=== PATIENT | male | born 1945 | race Caucasian/White ===

== ENCOUNTER → 2019-05-06 10:59 | Outpatient (BNVA) | payer MEDICARE, OTHER, SELFPAY | PROVIDERS: Family Provider Nurse Practitioner; PCP Nurse Practitioner; Visit Provider Nurse Practitioner | DX: J40 Bronchitis, not specified as acute or chronic (principal) | CPT/HCPCS: 36415; 85025 ==

== ENCOUNTER → 2019-05-08 11:10 | Outpatient (BNVA) | payer MEDICARE, OTHER, SELFPAY | PROVIDERS: Family Provider Nurse Practitioner; PCP Nurse Practitioner; Visit Provider Nurse Practitioner | DX: I51.7 Cardiomegaly (principal); R09.89 Other specified symptoms and signs involving the circulatory and respiratory systems | CPT/HCPCS: 71046 ==

== ENCOUNTER 2019-06-10 09:50 | Emergency (ER) | payer MEDICARE, OTHER, SELFPAY ==
[2019-06-10 09:59] VITALS: BP 104/80; PULSE 38; RESP 22; TEMP 36.8; O2SAT 94; BMI 42.5
--- NOTE | 2019-06-10 10:11 | ECG_ITS ---
Measurements Intervals [place] Rate: 68 P: 44 DC: 213 QRS: -52 QRSD: 164 T: 1 QT: 406 QTc: 434 SINUS RHYTHM WITH FIRST DEGREE AV BLOCK WITH FREQUENT VENTRICULAR PREMATURE COMPLEXES IN A BIGEMINAL PATTERN RIGHT BUNDLE BRANCH BLOCK [120+ ms QRS DURATION, UPRIGHT V1, 40+ ms S IN I/aVL/V4/V5/V6] LEFT ANTERIOR FASCICULAR BLOCK [QRS AXIS <= -45, QR IN I, RS IN II] Compared to ECG 08/31/2018 05:37:40 Ventricular premature complex(es) now present Right bundle-branch block now present Sinus bradycardia no longer present ST (T wave) deviation no longer present Electronically Signed On 06-10-2019 20:04:51 TIME STAMP ASSEMBLER by Brianne Toure M.D. [email or web address]
--- NOTE | 2019-06-10 10:11 | XR_ITS ---
WS: [id number] PORTABLE CHEST HISTORY: Chest pain. Edema. COMPARISON: 05/08/2019 Mild interstitial thickening throughout both lungs. Mild prominence of the pulmonary arterial system. No pneumonia. Pulmonary arteries are slightly enlarged with rapid tapering. No pleural effusion or p neumothorax. Cardiac size: Mildly enlarged cardiac silhouette. Mediastinum/Aorta: Mild atherosclerosis aorta. No osseous abnormality seen. XR/XR chest 1V portable [id number] IMPRESSION: 1. Mild cardiomegaly with mild pulmonary venous congestion. 2. No pneumonia. 3. Mild early pulmonary hypertension suspected.
--- NOTE | 2019-06-10 10:12 | ED_ITS ---
HPI - Extremity Problem General: Chief complaint: Extremity Problem,Nontraumatic Stated complaint: Leg pain Time Seen by Provider: 06/10/19 09:59 History of Present Illness: HPI Narrative: Patient complains of bilateral leg swelling. Has not been taking water pill. 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 Came in today because he cannot get hold electrical logging engineer office. Complaint: extremity pain Onset (ago): month(s) Pain Consistency: constant Location: left and right Associated symptoms: Deny chest pain, fever(s) or rash Review of Systems Narrative: Complains of bilateral lower extremity swelling that is just worsening. Patient states he does not take the water pill because he just pees all over himself and he cannot go out. Legs have been worsening over the last few weeks. Const: Denies: fever, chills or body aches Eyes: Denies: change in vision or blurry vision ENMT: Denies: throat pain or nasal congestion Card: Denies: chest pain or shortness of breath on exertion Resp: Denies: shortness of breath, productive cough or non-productive cough GI: Denies: abdominal pain, nausea or vomiting : Denies: difficulty urinating Musc: Denies: extremity pain Skin/Breast: Denies: rash Neuro: Denies: headache Psych: Denies: anxiety or depression Andi/Lymph: Denies: easy bruising PFSH ED PFSH: Statuses (acute, chronic, etc) shown below reflect problem list status as previously entered and may not be historically accurate Social History Smoking and tobacco status: never smoked Alcohol intake: current Alcohol intake frequency: holidays/special occasions only Desire information about alcohol rehabilitation?: No Counseling given: No Desire information about substance/drug rehabilitation?: No Counseling given: No Household members: spouse Housing: House Marital status: History of recent travel: No Physical Exam Const: COMMON NORMALS: no apparent distress, average body habitus and oriented x3 HENMT: COMMON NORMALS: normocephalic HEAD & SCALP: normal to inspection and normocephalic FACE & SINUS: normal facial exam Eye: COMMON NORMALS: conjunctivae normal GENERAL EYE: normal appearance of both eyes CONJUNCTIVA: Yes conjunctivae normal Neck/C-Spine: COMMON NORMALS: no JVD Chest: COMMONS NORMALS: inspection of chest normal Resp: COMMON NORMALS: normal respiratory effort and clear to auscultation bilaterally AUSCULTATION: clear to auscultation bilaterally Cardio: COMMON NORMALS: no JVD RATE: other RHYTHM: abnormal rhythm (Irregular) OTHER: 3+ pitting edema bilateral lower extremities GI: COMMON NORMALS: normal to inspection, nondistended, normoactive bowel sounds Extremity: COMMON NORMALS: normal to inspection and full ROM Neuro: COMMON NORMALS: oriented x3 Course Vital Signs: Vital signs: Vital Signs Temperature 98.3 F 06/10/19 09:59 Pulse Rate 38 L 06/10/19 09:59 Respiratory Rate 22 H 06/10/19 09:59 Blood Pressure 104/80 06/10/19 09:59 Pulse Oximetry 94 06/10/19 09:59 MDM - Extremity (Nontraumatic) EKG Data^: EKG 1: EKG interpretation date: 06/10/19 EKG interpretation time: 10:15 Interpretation: Right bundle branch block. Left anterior fascicular block. Sinus rhythm with first-degree AV block with PVCs. Ventricular rate 68 bpm. VT interval 213 ms and QRS durations 164 ms Discharge Plan Discharge Prescriptions: No Action lisinopril 20 mg tablet 20 mg PO BID RF: 0 cholecalciferol (vitamin D3) [Vitamin D3] 1,000 unit capsule 1,000 unit PO BID RF: 0 amlodipine 10 mg tablet 10 mg PO DAILY RF: 0 levothyroxine 175 mcg capsule 175 mcg PO DAILY RF: 0 atorvastatin 40 mg tablet 40 mg PO ONCE RF: 0 potassium chloride 20 mEq tablet extended release 20 meq PO ONCE RF: 0 metformin 500 mg tablet 500 mg PO BID RF: 0 (DME) blood-glucose meter [Precision Xtra Monitor] Kit See Rx Instructions .ROUTE .MEDSUPPLY Qty: 1 RF: 0 lancets miscellaneous DAILY RF: 0 doxazosin 1 mg tablet 1 mg PO BID RF: 0 cyanocobalamin (vitamin B-12) PO DAILY RF: 0 aspirin [Aspir-81] 81 mg tablet,delayed release (DR/EC) 81 mg PO ONCE RF: 0 clopidogrel 75 mg tablet 75 mg PO ONCE RF: 0 albuterol sulfate [ProAir HFA] 90 mcg/actuation HFA aerosol inhaler 2 puff INHALATION Q6H PRN (Reason: shortness of breath or wheezing) Qty: 18 RF: 0 doxycycline hyclate 100 mg tablet 100 mg PO BID Qty: 20 RF: 0 dexamethasone sodium phosphate 4 mg/mL solution 8 mg IM ONCE Qty: 2 RF: 0 clindamycin HCl 300 mg capsule 300 mg PO TID 10 Days Qty: 30 RF: 0 Adult Probiotic 3 billion cell capsule 3,000 mmu cells PO DAILY 30 Days Qty: 30 RF: 2 furosemide [Lasix] 20 mg tablet 20 mg PO QAM Qty: 4 RF: 0 metoprolol tartrate 25 mg tablet 25 mg PO BID Qty: 180 RF: 3 Coding Level of Care Code ED Emergency Service Worker for Chg Fwd Exam Problem Focused
[2019-06-10 10:23] LABS: Basophils % 0.4 %; Eosinophils # 0.2 10^3/uL (0.0-0.8); Eosinophils % 4.1 %; Hemoglobin 13.9 g/dL (11.7-16.6); Lymphocytes # 1.2 10^3/uL (0.8-4.8); Lymphocytes % 21.6 %; Mean Corpuscular HGB Conc 32.3 g/dL (30.0-36.0); Mean Corpuscular Hemoglobin 32.4 pg (28.0-34.0); Mean Corpuscular Volume 100.2 fL (80-94); Mean Platelet Volume 10.2 fL (7.4-10.4); Monocytes # 0.6 10^3/uL (0.2-0.9); Monocytes % 11.3 %; Neutrophils # 3.3 10^3/uL (1.8-7.7); Nucleated Red Blood Cells % 0 %; Platelet Count 165 10^3/cmm (130-400); Red Blood Count 4.29 10^6/uL (4.1-5.3); Red Cell Distribution Width 13.8 % (12.1-15.1); White Blood Count 5.3 10^3/uL (4.0-10.0)
[2019-06-10 10:52] LABS: Alanine Aminotransferase 18 U/L (0-41); Albumin Level 3.7 g/dL (3.5-5.2); Alkaline Phosphatase 93 IU/L (40-130); Aspartate Amino Transferase 18 U/L (0-40); Blood Urea Nitrogen 22 mg/dL (8-23); Calcium 9.2 mg/dL (8.5-10.5); Carbon Dioxide 27 mmol/L (22-29); Globulin 2.6 g/dL (1.3-4.6); Glucose 104 mg/dL (65-115); NT Pro B Type Natriuretic Pept 112 pg/mL (0-125); Total Bilirubin 0.8 mg/dL (0.15-1.2); Total Protein 6.3 g/dL (6.6-8.7)
[2019-06-10 11:12] LABS: Anion Gap 14.5 (5-19); Chloride 104 mmol/L (98-107); Potassium 4.5 mmol/L (3.5-5.1); Sodium 141 mmol/L (136-145)
[2019-06-10 11:23] VITALS: BP 156/58; PULSE 43; RESP 20; O2SAT 93
== END 2019-06-10 11:23 | disposition home or self-care (01) ==
PROVIDERS: Emergency Provider Nurse Practitioner Family; Family Provider Nurse Practitioner; PCP Nurse Practitioner
DX: M79.606 Pain in leg, unspecified (principal); M79.89 Other specified soft tissue disorders; Z79.84 Long term (current) use of oral hypoglycemic drugs; Z79.02 Long term (current) use of antithrombotics/antiplatelets; Z79.82 Long term (current) use of aspirin; I70.0 Atherosclerosis of aorta
CPT/HCPCS: 36415; 71045; 80053; 83880; 85025; 93005; 99281; 99283

== ENCOUNTER → 2019-06-26 11:50 | Outpatient (BNVA) | payer MEDICARE, OTHER, SELFPAY | PROVIDERS: Family Provider Nurse Practitioner; PCP Nurse Practitioner; Visit Provider Nurse Practitioner Family | DX: R05 Cough (principal); R06.02 Shortness of breath; I51.7 Cardiomegaly; R60.0 Localized edema; R07.9 Chest pain, unspecified; I50.9 Heart failure, unspecified; R71.8 Other abnormality of red blood cells | CPT/HCPCS: 80053; 82607; 82746; 83880; 85025 ==

== ENCOUNTER 2019-06-28 13:27 | Outpatient (CLI) | payer MEDICARE, OTHER, SELFPAY ==
--- NOTE | 2019-06-28 14:18 | XR_ITS ---
WS: [id number] Chest 2 views, 06/28/2019 Clinical Data: Cough Comparison: Portable chest, 06/10/2019. Findings: No nodules, masses or effusions are seen. The heart is minimally large. The pulmonary vascu larity is not increased. No pneumonia or pneumothorax is seen. The aortic arch and descending aorta s how tortuosity. XR/XR chest 2V* [id number] Impression: Atherosclerosis and mild cardiomegaly.
[2019-06-28 14:50] LABS: Troponin T (5th) Once 26 ng/mL (0-15)
--- NOTE | 2019-06-28 15:00 | USCV_ITS ---
Alexei Hoffmann Age: 73 Gender: M : 1945 Exam Date: 06/28/2019 13:53 Ordering Phys: Daphnie Moralez Technologist: Nahed Luna [place]am Location: [facility] [place] [facility] [place] Indication: SOB, CARDIOMEGALY BP: 150 / 52 HR: 59 Rhythm: Sinus Technical Quality: Technically difficult study MEASUREMENTS (Male / Female) Normal Values 2D ECHO LV Diastolic Diameter PLAX 6.7 cm 4.2 - 5.9 / 3.9 - 5.3 cm LV Systolic Diameter PLAX 4.4 cm IVS Diastolic Thickness 1.2 cm 0.6 - 1.0 / 0.6 - 0.9 cm IVS Systolic Thickness 1.9 cm LVPW Diastolic Thickness 1.3 cm 0.6 - 1.0 / 0.6 - 0.9 cm LVPW Systolic Thickness 1.8 cm LVOT Diameter 2.0 cm LV Ejection Fraction 2D Teich 62.3 % LA Diameter 4.2 cm Aorta at Sinotubular Diameter 3.6 cm M-MODE Aortic Annulus Diameter 2.6 cm LA Ao Ratio MM 1.6 MV E Point Septal Separation 1.9 cm DOPPLER AV Peak Velocity 231.0 cm/s LVOT Peak Velocity 97.0 cm/s AV Area Cont Eq vti 1.3 cm squared AV Area Cont Eq pk 1.3 cm squared MV Area PHT 4.6 cm squared MV E' Velocity 68.0 cm/s TR Peak Velocity 288.5 cm/s TR Peak Gradient 33.3 mmHg TR Mean Velocity 208.4 cm/s TR Mean Gradient 18.7 mmHg TR Velocity Time Integral 99.0 cm TV Peak E Velocity 41.0 cm/s Right Atrial Pressure 8.0 mmHg Pulmonary Artery Systolic Pressu 41.3 mmHg PV Peak Velocity 103.0 cm/s RV Acceleration Time 0.1 s RV Ejection Time 0.4 s RV AcT/ET 0.4 FINDINGS Left Ventricle Normal left ventricular size and systolic function, EF 62%.mild left ventricular hypertrophy. No gross wall motion abnormalities noted. Segmental wall motion analysis difficult because of frequent PVCs in the form of bigeminy Right Ventricle Normal right ventricular size and systolic function. Right Atrium Normal right atrial size. Left Atrium Normal left atrial size. Mitral Valve Thickened mitral valve. Aortic Valve Thickened aortic valve. The peak velocity of 2.3 m/s with a peak gradient of 21 and a mean gradient of 12 mmHg. Valve area was calculated to be 1.3 cm scar Tricuspid Valve No gross abnormalities noted.mild tricuspid valve regurgitation. Estimated pulmonary artery peak systolic pressure of 41 mmHg Pulmonic Valve Pulmonic valve not well visualized. Pericardium Dilated inferior vena cava Aorta Plaque seen in the ascending aorta. CONCLUSIONS Normal left ventricular size and systolic function, EF 62%. Mild left ventricular hypertrophy. No gross wall motion abnormalities noted. Segmental wall motion analysis difficult because of frequent PVCs in the form of bigeminy. Features of aortic valve sclerosis Thickened mitral valve. Mildly dilated inferior vena cava There is no pericardial effusion. There are no intracardiac masses. Mild tricuspid valve regurgitation. Mild pulmonary hypertension with estimated pulmonary artery peak systolic pressure of 41 mmHg Comparison with the previous study is difficult because of the difference in the technical quality. Dr Jolynn Danielson MD FAC (Electronically Signed) Final Date: 28 June 2019 17:20 S
== END 2019-06-28 13:28 | disposition home or self-care (01) ==
LOC: RAD 13:33
PROVIDERS: Family Provider Nurse Practitioner; PCP Nurse Practitioner; Visit Provider Nurse Practitioner Family
DX: I08.3 Combined rheumatic disorders of mitral, aortic and tricuspid valves (principal); I70.0 Atherosclerosis of aorta; R07.9 Chest pain, unspecified; R05 Cough; R06.02 Shortness of breath; R60.0 Localized edema
CPT/HCPCS: 71046; 84484; 93306

== ENCOUNTER → 2019-09-05 09:37 | Outpatient (BNVA) | payer MEDICARE, OTHER, SELFPAY | PROVIDERS: Family Provider Nurse Practitioner; PCP Nurse Practitioner; Visit Provider Nurse Practitioner | DX: E11.9 Type 2 diabetes mellitus without complications (principal); M25.559 Pain in unspecified hip | CPT/HCPCS: 80061; 81000; 83036 ==

== ENCOUNTER 2019-09-12 10:02 | Outpatient (CLI) | payer MEDICARE, OTHER, SELFPAY ==
--- NOTE | 2019-09-12 10:09 | XR_ITS ---
WS: [id number] LEFT HIP HISTORY: left hip pain COMPARISON: None available. Right hip: No acute fracture or dislocation. Moderate narrowing of the hip joint. Loss of the normal sclerosis and joint space. XR/XR hip LT 2-3V wo/w pel* [id number] IMPRESSION: 1. No hip fracture. 2. Moderate degenerative joint disease LEFT hip.
--- NOTE | 2019-09-12 10:09 | XR_ITS ---
WS: [id number] LEFT KNEE: 3 VIEW(S) TECHNIQUE: AP, oblique(s) and lateral. HISTORY: Left knee pain COMPARISON: 05/02/2017 No fracture or dislocation. No joint space narrowing or osteophytes. Again noted is the wavy periosteal reaction involving the proximal tibia and fibula. Similar to the p rior study. Soft tissue calcifications are also noted in the lower extremity. No joint effusion. XR/XR knee LT 3V* [id number] IMPRESSION: No significant osteoarthritis. Again noted is the periosteal thickening involving the proximal tibia and fibul a and soft tissue calcifications. No significant progression of disease.
== END 2019-09-12 10:03 | disposition home or self-care (01) ==
PROVIDERS: Family Provider Nurse Practitioner; PCP Nurse Practitioner; Visit Provider Nurse Practitioner
DX: M25.552 Pain in left hip (principal); M25.562 Pain in left knee; M16.12 Unilateral primary osteoarthritis, left hip
CPT/HCPCS: 73502; 73562

== ENCOUNTER → 2019-12-02 11:47 | Outpatient (BNVA) | payer MEDICARE, OTHER, SELFPAY | PROVIDERS: Family Provider Nurse Practitioner; PCP Nurse Practitioner; Visit Provider Internal Medicine Cardiovascular Disease | DX: I50.9 Heart failure, unspecified (principal); Z51.81 Encounter for therapeutic drug level monitoring; Z79.899 Other long term (current) drug therapy; I82.409 Acute embolism and thrombosis of unspecified deep veins of unspecified lower extremity; I25.10 Atherosclerotic heart disease of native coronary artery without angina pectoris; I49.3 Ventricular premature depolarization | CPT/HCPCS: 80053; 84443 ==

== ENCOUNTER → 2020-02-18 16:26 | Outpatient (BNVA) | payer MEDICARE, OTHER, SELFPAY | PROVIDERS: Family Provider Nurse Practitioner; PCP Nurse Practitioner; Visit Provider Nurse Practitioner | DX: L98.9 Disorder of the skin and subcutaneous tissue, unspecified (principal) | CPT/HCPCS: 88305 ==

== ENCOUNTER → 2020-03-12 10:48 | Outpatient (BNVA) | payer MEDICARE, OTHER, SELFPAY | PROVIDERS: Family Provider Nurse Practitioner; PCP Nurse Practitioner; Visit Provider Nurse Practitioner | DX: E11.9 Type 2 diabetes mellitus without complications (principal); I50.9 Heart failure, unspecified; I25.10 Atherosclerotic heart disease of native coronary artery without angina pectoris; I10 Essential (primary) hypertension; E03.9 Hypothyroidism, unspecified; Z79.899 Other long term (current) drug therapy | CPT/HCPCS: 80053; 81000; 82043; 83036; 83880; 84443 ==

== ENCOUNTER 2020-04-08 09:42 | Outpatient (CLI) | payer MEDICARE, OTHER, SELFPAY ==
--- NOTE | 2020-04-08 09:55 | XR_ITS ---
WS: [id number] RIBS LEFT WITH CHEST TECHNIQUE: 3 views of the left ribs with PA chest CLINICAL INFORMATION: R07.81 - Pleurodynia COMPARISON: June 20, 2019 FINDINGS: Cardiomegaly. Aortic calcification. Chronic emphysematous changes. No acute pulmonary infiltrates. Sl ight fibrosis or atelectasis left lower lobe. No visualized left rib fractures. XR/XR ribs LT mn 3V w CXR1V [id number] IMPRESSION: No visualized left rib fractures.
== END 2020-04-08 09:43 | disposition home or self-care (01) ==
LOC: RADWPI 09:49
PROVIDERS: PCP Nurse Practitioner; Visit Provider Nurse Practitioner
DX: R07.81 Pleurodynia (principal)
CPT/HCPCS: 71101

== ENCOUNTER 2020-05-27 13:13 | Outpatient (CLI) | payer MEDICARE, OTHER, SELFPAY ==
--- NOTE | 2020-05-27 13:17 | USCV_ITS ---
Alexei Hoffmann Age: 74 Gender: M : 1945 Exam Date: 05/27/2020 13:27 Ordering Phys: Norma Mullins MD ([email or web address]) Technologist: Sandoval Torres [place] [facility] [place]: HISTORY: Lower extremity swelling. PROCEDURES: Bilateral duplex Venous Insufficiency study of the Deep and Superficial systems was carried out according to normal protocol with the patient in supine positon for deep system and dependent position for the superficial system. FINDINGS: All deep veins demonstrated compressibility without evidence of intraluminal thrombus or increased echogenicity. Spectral analysis of Doppler signals demonstrates normal response to compression maneuvers indicating patency without obstruction. Reflux determinations were made with the patient in the dependent position, the weight being on the contralateral leg. Vein measurements and reflux times are listed below were applicable. CONCLUSIONS No evidence of DVT in the above-mentioned identifiable veins. No significant venous reflux were noted either in the deep or in the superficial veins tested as above. The superficial veins were found to be patent with a normal caliber The venous dimensions and the depth fro m the surface are as mentioned above Dr Jolynn Danielson MD [facility] (Electronically Signed) Final Date: 28 May 2020 16:36 S
== END 2020-05-27 13:14 | disposition home or self-care (01) ==
LOC: RAD 13:14
PROVIDERS: PCP Nurse Practitioner; Visit Provider Internal Medicine Cardiovascular Disease
DX: R60.0 Localized edema (principal); M79.89 Other specified soft tissue disorders
CPT/HCPCS: 93970

== ENCOUNTER → 2020-07-01 16:17 | Outpatient (BNVA) | payer MEDICARE, OTHER, SELFPAY | PROVIDERS: PCP Nurse Practitioner; Visit Provider Nurse Practitioner | DX: R22.31 Localized swelling, mass and lump, right upper limb (principal) | CPT/HCPCS: 73130 ==

== ENCOUNTER → 2020-08-03 15:13 | Outpatient (BNVA) | payer MEDICARE, OTHER, SELFPAY | PROVIDERS: PCP Nurse Practitioner; Visit Provider Nurse Practitioner | DX: E03.9 Hypothyroidism, unspecified (principal); E11.9 Type 2 diabetes mellitus without complications; I50.9 Heart failure, unspecified; I10 Essential (primary) hypertension; E66.01 Morbid (severe) obesity due to excess calories | CPT/HCPCS: 80053; 80061; 81000; 82043; 83036; 84443 ==

== ENCOUNTER → 2020-09-17 08:25 | Outpatient (BNVA) | payer MEDICARE, OTHER, SELFPAY | PROVIDERS: PCP Nurse Practitioner; Visit Provider Internal Medicine Cardiovascular Disease | DX: E87.5 Hyperkalemia (principal); I10 Essential (primary) hypertension; I50.9 Heart failure, unspecified | CPT/HCPCS: 80048; 83735; 83880 ==

== ENCOUNTER → 2020-12-18 09:24 | Outpatient (BNVA) | payer MEDICARE, OTHER, SELFPAY | PROVIDERS: PCP Nurse Practitioner; Visit Provider Internal Medicine | DX: Z01.812 Encounter for preprocedural laboratory examination (principal); Z20.822 Contact with and (suspected) exposure to COVID-19; E11.9 Type 2 diabetes mellitus without complications | CPT/HCPCS: 80053; 83036; 84443; 87635 ==

== ENCOUNTER 2020-12-25 08:54 | Day surgery (SDC) | payer MEDICARE, OTHER, SELFPAY ==
[2020-12-22 14:07] VITALS: BMI 44.3
[2020-12-25 09:36] VITALS: BP 169/93; PULSE 76; RESP 18; TEMP 36.8; O2SAT 96
--- NOTE | 2020-12-25 09:41 | ANES.PREANE2 ---
Pre-Anesthetic Assessment Pre-Anesthetic Assessment: Height/Weight: Height 1.88 m Weight 156.489 kg Temp Pulse Resp BP Pulse Ox 98.2 F 76 18 169/93 96 12/25/20 09:36 12/25/20 09:36 12/25/20 09:36 12/25/20 09:36 12/25/20 09:36 Proposed Procedure: Operation Date: 12/25/20 10:00 Proposed Procedures p Colonoscopy 32238 Z12.11(Not Applicable) - Angel Roland MD Was Beta Nisreen taken within 24 hours: Yes Was Clonidine taken within 24 hours: N/A Last intake: Intake Last Liquid Date 12/24/20 Last Liquid Time 23:00 Last Solid Date 12/23/20 Last Solid Time 20:00 Social: Social History: No alcohol and No tobacco Exam: Pre-Anes Outpt Exam: alert, oriented x 3, clear to auscultation bilaterally and regular rate & rhythm Airway: Submandibular: WNL Cervical ROM: WNL MP: 2 Dentition: Full Pulmonary: Pulmonary: Sleep apnea CV/HEM: CV/HEM: CAD (stent), CHF and HTN : : Chronic renal Insufficiency Metabolic: Metabolic: Hyperlipidemia, Morbid obesity and Thyroid Anesthetic Plan: ASA status: 3 Anesthesia: MAC Risk of > 500 ml blood loss (7ml/kg in children): No PFSH Anesthesia PFSH: Medical History Adult hypothyroidism Benign hypertension CAD (coronary artery disease) Controlled diabetes mellitus without complication, without long-term current use of insulin Degenerative arthritis of hip DVT (deep venous thrombosis) Frequent PVCs SHIRA treated with BiPAP Severe obesity (BMI >= 40) Vitamin D deficiency Surgical History History of hernia repair Bilateral inguinal and umbilical Family History Other Heart disease Hypertension Social History Smoking and tobacco status: never smoked Second hand smoke exposure: No Smoking risk assessment/counseling performed?: No Alcohol intake: current Alcohol intake frequency: holidays/special occasions only Desire information about alcohol rehabilitation?: No Counseling given: No Desire information about substance/drug rehabilitation?: No Counseling given: No Adopted: No Caregiver/support person: No Lives independently: Yes Household members: spouse Housing: House Marital status: service: Yes branch: [employer] Current occupational status: retired History of recent travel: No Current gender identity: Male Data Anesthesia Cardiac Studies: Holter Monitor 04/06/20
[2020-12-25] MEDS: sodium chloride 0.9% 1,000 ML 30 ML IV (09:47)
[2020-12-25 09:52] LABS: Glucose Point of Care 94 mg/dL (70-110)
--- NOTE | 2020-12-25 10:10 | W.PM.OPSFHP ---
Same Day Surgery H&P Indication for Procedure/HPI DATE OF PROCEDURE: December 25, 2020 CHIEF COMPLAINT/INDICATIONFOR SURGICAL PROCEDURE: Screening PREOP DIAGNOSIS: Screening PLANNED PROCEDRUE: Operation Date: 12/25/20 10:00 Proposed Procedures p Colonoscopy 85328 Z12.11(Not Applicable) - Angel Roland MD Medications/Allergies* Home Medications Medication Instructions Recorded Confirmed Type aspirin 81 mg tablet,delayed 81 mg PO DAILY 05/06/19 12/25/20 History release blood-glucose meter #1 each 05/06/19 10/20/20 History cholecalciferol (vitamin D3) 25 1,000 unit PO BID cap 05/06/19 12/25/20 History mcg (1,000 unit) capsule cyanocobalamin (vitamin B-12) 1 tab PO DAILY 05/06/19 12/25/20 History [Vitamin B-12] lancets [FreeStyle Lancets] MISCELLANEOUS DAILY 05/06/19 10/20/20 History Allergies/Adverse Reactions Allergy/AdvReac Type Severity Reaction Status Date / Time No Known Allergies Allergy Verified 12/25/20 09:48 Current Medications: Generic Name Dose Route Start Last Admin Trade Name Freq PRN Reason Stop Dose Admin Sodium Chloride 1,000 mls @ 30 mls/hr 12/25/20 09:45 12/25/20 09:47 Sodium Chloride 0.9% IV 30 mls/hr .Q24H BRENDA Administration Pertinent History/Comorbid Conditions* Medical History (Updated 08/12/20 @ 22:35 by Norma Mullins MD) Adult hypothyroidism Benign hypertension CAD (coronary artery disease) Controlled diabetes mellitus without complication, without long-term current use of insulin Degenerative arthritis of hip DVT (deep venous thrombosis) Frequent PVCs SHIRA treated with BiPAP Severe obesity (BMI >= 40) Vitamin D deficiency Surgical History (Updated 05/06/19 @ 12:18 by GOLDIE Harvey) History of hernia repair Bilateral inguinal and umbilical Family History (Updated 05/06/19 @ 11:37 by EL Islas) Heart disease Hypertension Social History Smoking and tobacco status: never smoked Second hand smoke exposure: No Smoking risk assessment/counseling performed?: No Alcohol intake: current Alcohol intake frequency: holidays/special occasions only Desire information about alcohol rehabilitation?: No Counseling given: No Desire information about substance/drug rehabilitation?: No Counseling given: No Adopted: No Caregiver/support person: No Lives independently: Yes Household members: spouse Housing: House Marital status: service: Yes branch: [employer] Current occupational status: retired History of recent travel: No Current gender identity: Male Pertinent Exam Findings alert, oriented x 3, clear to auscultation bilaterally, regular rate & rhythm, operative site marked and procedure specific exam findings Recommendations Surgery/Procedure today Coding Level of Care Code 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
[2020-12-25 10:33] VITALS: BP 110/64; PULSE 56; RESP 18; TEMP 36.6; O2SAT 91
--- NOTE | 2020-12-25 10:36 | ANE.PACU2 ---
Inpatient post-anesthesia follow up: Airway intact: Yes Vital signs: Temperature 97.8 F Pulse Rate 56 Respiratory Rate 18 Blood Pressure 110/64 Pulse Oximetry 91 Oxygen Delivery Me thod Nasal Cannula Oxygen Flow Rate 3 Fraction of Inspir ed Oxygen Hydration adequate: Yes Nausea and vomiting: No Pain level: 1 Mental status: Baseline
[2020-12-25 10:45] VITALS: BP 116/68; PULSE 53; RESP 18; O2SAT 94
== END 2020-12-25 11:04 | disposition home or self-care (01) ==
PROVIDERS: PCP Nurse Practitioner; Visit Provider Internal Medicine
PROC: 0DJD8ZZ Inspection of Lower Intestinal Tract, Via Natural or Artificial Opening Endoscopic (ICD-10-PCS; CPT 45378; principal; 2020-12-25 10:00)
DX: Z12.11 Encounter for screening for malignant neoplasm of colon (principal); Z79.82 Long term (current) use of aspirin; E03.9 Hypothyroidism, unspecified; I10 Essential (primary) hypertension; I25.10 Atherosclerotic heart disease of native coronary artery without angina pectoris; E11.9 Type 2 diabetes mellitus without complications; Z86.718 Personal history of other venous thrombosis and embolism; G47.33 Obstructive sleep apnea (adult) (pediatric); E66.9 Obesity, unspecified; Z68.41 Body mass index [BMI] 40.0-44.9, adult; E55.9 Vitamin D deficiency, unspecified; Z82.49 Family history of ischemic heart disease and other diseases of the circulatory system; Z95.5 Presence of coronary angioplasty implant and graft
CPT/HCPCS: 36416; 45378; 82962; 96360; G0121; J2704; J7030

== ENCOUNTER 2021-01-25 09:12 | Emergency (ER) | payer MEDICARE, OTHER, SELFPAY ==
[2021-01-25 09:37] VITALS: BP 108/56; PULSE 73; RESP 16; TEMP 36.9; O2SAT 93; BMI 42.7
--- NOTE | 2021-01-25 10:26 | XR_ITS ---
WS: [id number] Exam: XR chest 1V portable [id number] Date/Time of Exam: 01/25/2021 10:28 AM Reason For Exam: dyspnea/cough Comparison 04/08/2020. There is groundglass infiltrate in the lateral mid left lung suspicious for pneumonia. The right lung is clear. No pleural effusion or pneumothorax. Cardiomediastinal structures are unremarkable for yarelis hnique. Monitoring leads superimpose the chest. XR/XR chest 1V portable [id number] IMPRESSION: 1. Groundglass infiltrates in the mid left lung suspicious for pneumonia.
[2021-01-25 10:33] LABS: Basophils % 0.3 %; Eosinophils # 0.1 10^3/uL (0.0-0.8); Eosinophils % 1.9 %; Hematocrit 41.1 % (42.0-52.0); Hemoglobin 13.4 g/dL (11.7-16.6); Lymphocytes # 0.6 10^3/uL (0.8-4.8); Lymphocytes % 8.6 %; Mean Corpuscular HGB Conc 32.6 g/dL (30.0-36.0); Mean Corpuscular Hemoglobin 35.4 pg (28.0-34.0); Mean Corpuscular Volume 108.4 fl (80-94); Mean Platelet Volume 10.3 fL (7.4-10.4); Monocytes # 0.5 10^3/uL (0.2-0.9); Monocytes % 6.9 %; Neutrophils # 5.66 10^3/uL (1.8-7.7); Neutrophils % 81.6 %; Nucleated Red Blood Cells % 0.3 %; Platelet Count 147 10^3/cmm (130-400); Red Blood Count 3.79 10^6/uL (4.1-5.3); Red Cell Distribution Width 14.1 % (12.1-15.1); White Blood Count 6.9 10^3/uL (4.0-10.0)
--- NOTE | 2021-01-25 10:48 | ECG_ITS ---
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 Measurements Intervals [place] Rate: 65 P: 26 [place]: 263 QRS: -55 QRSD: 181 T: -25 QT: 433 QTc: 451 Interpretive Statements SINUS RHYTHM WITH FIRST DEGREE AV BLOCK RIGHT BUNDLE BRANCH BLOCK [120+ ms QRS DURATION, UPRIGHT V1, 40+ ms S IN I/aVL/V4/V5/V6] LEFT ANTERIOR FASCICULAR BLOCK [QRS AXIS <= -45, QR IN I, RS IN II] Compared to ECG 06/10/2019 10:04:32 No significant changes Electronically Signed On 01-25-2021 22:12:06 CDT by Mejia Hurtado M.D. [id number]
[2021-01-25 10:50] VITALS: BP 117/61; PULSE 65; PULSE 66; RESP 22; O2SAT 95
[2021-01-25 10:53] LABS: Alanine Aminotransferase 40 U/L (0-41); Albumin Level 3.8 g/dL (3.5-5.2); Alkaline Phosphatase 73 IU/L (40-130); Anion Gap 13.9 (5-19); Aspartate Amino Transferase 30 U/L (0-40); Blood Urea Nitrogen 36 mg/dL (8-23); Calcium 8.6 mg/dL (8.5-10.5); Carbon Dioxide 26 mmol/L (22-29); Chloride 100 mmol/L (98-107); Globulin 2.7 g/dL (1.3-4.6); Glucose 88 mg/dL (65-115); NT Pro B Type Natriuretic Pept 261 pg/mL (0-125); Osmolality Calculated 288 mOsm/kg (285-295); Potassium 4.9 mmol/L (3.5-5.1); Sodium 135 mmol/L (136-145); Total Bilirubin 0.8 mg/dL (0.15-1.2); Total Protein 6.5 g/dL (6.6-8.7)
[2021-01-25 11:46] LABS: Add Urine Microscopic? YES; Bacteria Urine 1+ /hpf; Bilirubin Urine 1+ (Negative); Blood Urine Neg (Negative); Glucose Urine UA Norm (Normal); Ketones Urine Negative (Negative); Leukocyte Esterase Urine Negative (Negative); Nitrate Urine Negative (Negative); Protein Urine Neg (Negative); RBC Urine RARE /hpf (0-2); Squamous Epithelial Cell Urine 0-4 /hpf (0-5); Urine Appearance Hazy (CLEAR); Urine Color Yellow (Yellow); Urobilinogen Urine 1 mg/dL (Negative); WBC Urine 0-4 /hpf (0-5); pH Urine 5 (5-7)
[2021-01-25 11:47] LABS: Hyaline Casts Urine 0-4 /lpf; Mucus Urine 1+ /hpf
--- NOTE | 2021-01-25 11:49 | W.ED.SOB ---
HPI - SOB/Dyspnea General: Chief Complaint: Shortness of Breath/Dyspnea Stated Complaint: SOB/HEADACHES/N,V Time Seen by Provider: 01/25/21 09:42 History of Present Illness: HPI Narrative: 75-year-old male presents emergency room complaining of shortness of breath. Patient states he has had the 4 months if not years but the last several days and has been getting worse he has chronic lower extremity edema is actually better he does not have any orthopnea. He has a history of coronary artery disease and 3 years ago had a stent placed is not been having any chest pain with any activity always get short of breath that usually resolved after rest. But over the last 4 4 to 7 days he states is committing worse. (Him and the told me it was 1 weeks and told the nurse it was 4 days). He is not currently having any chest pain now. He has previously had an echocardiogram 1 point his EF was down 47% most recent 1 is actually back to normal range. MD elicited complaint: shortness of breath and cough Pertinent past history: congestive heart failure Onset (ago): month(s) Timing: constant Severity: mild Exacerbating factors: nothing Relieving factors: nothing Associated symptoms: Reports cough (Chronic unchanged from baseline); Deny abdominal pain, chest congestion, chest pain, diaphoresis, dizziness, extremity pain, fever(s), hemoptysis, lightheadedness, myalgias, nausea, orthopnea, palpitations, paresthesias, polydipsia, polyuria, rash, sense of impending doom, syncope or vomiting Treatment prior to arrival: oxygen Review of Systems Const: Denies: fever(s) or diaphoresis ENMT: Denies: throat pain, ear or mastoid pain, nasal discharge or nasal congestion Card: Denies: chest pain, palpitations, lightheadedness, syncope or orthopnea Resp: Denies: hemoptysis or chest congestion GI: Denies: abdominal pain, nausea or vomiting : Denies: flank pain, dysuria, urinary frequency or urinary urgency Musc: Denies: extremity pain Skin/Breast: Denies: rash or pruritus Neuro: Denies: dizziness Endo: Denies: polyuria or polydipsia PFS ED PFSH: Medical History Adult hypothyroidism Benign hypertension CAD (coronary artery disease) Controlled diabetes mellitus without complication, without long-term current use of insulin Degenerative arthritis of hip DVT (deep venous thrombosis) Frequent PVCs SHIRA treated with BiPAP Severe obesity (BMI >= 40) Vitamin D deficiency Surgical History History of hernia repair Bilateral inguinal and umbilical Family History Other Heart disease Hypertension Social History Smoking and tobacco status: never smoked Second hand smoke exposure: No Smoking risk assessment/counseling performed?: No Alcohol intake: current Alcohol intake frequency: holidays/special occasions only Desire information about alcohol rehabilitation?: No Counseling given: No Desire information about substance/drug rehabilitation?: No Counseling given: No Adopted: No Caregiver/support person: No Lives independently: Yes Household members: spouse Housing: House Marital status: service: Yes branch: [employer] Current occupational status: retired History of recent travel: No Current gender identity: Male Physical Exam Const: COMMON NORMALS: no acute distress GENERAL APPEARANCE: cooperative and comfortable ORIENTATION/CONSCIOUSNESS: Yes awake, Yes oriented to person, Yes oriented to place and Yes oriented to time HENMT: COMMON NORMALS: normocephalic, atraumatic and hearing grossly normal bilaterally HEAD & SCALP: normocephalic and atraumatic Neck/C-Spine: COMMON NORMALS: no JVD Resp: COMMON NORMALS: normal respiratory effort, No retractions, No use of accessory muscles and clear to auscultation bilaterally AUSCULTATION: clear to auscultation bilaterally Cardio: COMMON NORMALS: no JVD, regular rate, regular rhythm and No murmurs present (Cardio) RATE: regular rate RHYTHM: regular rhythm GI: COMMON NORMALS: Soft to palpation and No hepatosplenomegaly present AUSCULTATION: Yes normoactive bowel sounds PALPATION: Yes Soft to palpation, No Tenderness to palpation present (GI), No Guarding due to palpation present (GI) and Yes No hepatosplenomegaly present Extremity: COMMON NORMALS: normal to inspection, capillary refill normal, no clubbing, cyanosis or edema, no calf tenderness and no pedal edema Neuro: SENSORIUM/ORIENTATION: Yes oriented to person, Yes oriented to place and Yes oriented to time Skin: COMMON NORMALS: no rashes or lesions noted GENERAL SKIN EXAM: no rashes or lesions noted Course Vital Signs: Vital signs: Vital Signs Temperature 98.4 F 01/25/21 09:37 Pulse Rate 78 01/25/21 14:36 Respiratory Rate 16 01/25/21 14:36 Blood Pressure 108/62 01/25/21 13:50 Pulse Oximetry 98 01/25/21 14:36 MDM - SOB/Dyspnea MDM Narrative: Medical decision making narrative: Suspicious for COVID-19. Patient has multiple symptoms suggestive of this. He does also appear to have some mild heart failure. He has been vaccinated which may be why his symptoms are mild. Lasix 40 daily and recheck with his PCP in the next 2 to 3 days return if has further problems. He is requiring home oxygen which we set up for him today. Lab Data: Labs: Lab Results 01/25/21 01/25/21 01/25/21 10:12 10:12 10:12 WBC 6.9 10^3/uL 10^3/ uL (4.0-10.0) RBC 3.79 10^6/uL L 10 ^6/uL (4.1-5.3) Hgb 13.4 g/dL g/dL (11.7-16.6) Hct 41.1 % L % (42.0-52.0) MCV 108.4 fl H fl (80-94) MCH 35.4 pg H pg (28.0-34.0) MCHC 32.6 g/dL g/dL (30.0-36.0) RDW 14.1 % % (12.1-15.1) Plt Count 147 10^3/cmm 10^3 /cmm (130-400) MPV 10.3 fL fL (7.4-10.4) Neut % (Auto) 81.6 % % Lymph % (Auto) 8.6 % % [place] % (Auto) 6.9 % % Eos % (Auto) 1.9 % % Baso % (Auto) 0.3 % % Neut # (Auto) 5.66 10^3/uL 10^3 /uL (1.8-7.7) Lymph # (Auto) 0.6 10^3/uL L 10^ 3/uL (0.8-4.8) [place] # (Auto) 0.5 10^3/uL 10^3/ uL (0.2-0.9) Eos # (Auto) 0.1 10^3/uL 10^3/ uL (0.0-0.8) Baso # (Auto) 0.0 10^3/uL 10^3/ uL (0.0-0.1) Nucleated RBC % (a uto) 0.3 % % Nucleated RBCs # 0.0 /100WBC /100W BC Specimen Type Sample Site ABG pH ABG pCO2 ABG pO2 ABG HCO3 ABG O2 Saturation ABG Base Excess Wisam Test A-a O2 Gradient Hematocrit Hgb O2 Saturation Carboxyhemoglobin Methemoglobin Total Hemoglobin Ionized Calcium O2 Delivery Device O2 Liters/Min FiO2 Hot Dip Tinning Supervisor ID Sodium 135 mmol/L L mmol /L (136-145) Potassium 4.9 mmol/L mmol/L (3.5-5.1) Chloride 100 mmol/L mmol/L (98-107) Carbon Dioxide 26 mmol/L mmol/L (22-29) Anion Gap 13.9 (5-19) BUN 36 mg/dL H mg/dL (8-23) Creatinine 2.0 mg/dL H mg/dL (0.7-1.2) GFR Calculation Not Reportable Glucose 88 mg/dL mg/dL (65-115) Calculated Osmolal ity 288 mOsm/kg mOsm/ kg (285-295) Calcium 8.6 mg/dL mg/dL (8.5-10.5) Total Bilirubin 0.8 mg/dL mg/dL (0.15-1.2) AST 30 U/L U/L (0-40) ALT 40 U/L U/L (0-41) Alkaline Phosphata se 73 IU/L IU/L (40-130) Troponin T Baselin e 32 ng/L H ng/L (0-15) Troponin T 120 Min hughes Delta Troponin T NT-Pro-B Natriuret Pep 261 pg/mL H pg/mL (0-125) Total Protein 6.5 g/dL L g/dL (6.6-8.7) Albumin 3.8 g/dL g/dL (3.5-5.2) Globulin 2.7 g/dL g/dL (1.3-4.6) Urine Color Urine Appearance Urine pH Ur Specific Gravit y Urine Protein Urine Glucose (UA) Urine Ketones Urine Blood Urine Nitrate Urine Bilirubin Urine Urobilinogen Ur Leukocyte Leatha ase Urine RBC Urine WBC Ur Squamous Epith Cells Amorphous Sediment Urine Bacteria Hyaline Casts Urine Mucus Nasal/Oral COVID-1 9 PCR SARS-CoV-2 Ag (Rap id) 01/25/21 01/25/21 01/25/21 11:22 11:44 12:03 WBC RBC Hgb Hct MCV MCH MCHC RDW Plt Count MPV Neut % (Auto) Lymph % (Auto) [place] % (Auto) Eos % (Auto) Baso % (Auto) Neut # (Auto) Lymph # (Auto) [place] # (Auto) Eos # (Auto) Baso # (Auto) Nucleated RBC % (a uto) Nucleated RBCs # Specimen Type Arterial Sample Site Radial, left ABG pH 7.39 (7.35-7.45) ABG pCO2 41.7 mmHg mmHg (35-45) ABG pO2 104.0 mmHg H mmHg (80.0-100.0) ABG HCO3 25.4 mmol/L mmol/ L (22-26) ABG O2 Saturation 98.2 ABG Base Excess 0.4 mmol/L mmol/L (-2.0-2.0) Wisam Test Pos A-a O2 Gradient 5.6 mmHg mmHg (5-10) Hematocrit 40.0 % L % (42-52) Hgb O2 Saturation 96.4 % % (95-100) Carboxyhemoglobin 0.9 %THgb %THgb (0.4-20.1) Methemoglobin 1.0 % % (0.4-1.5) Total Hemoglobin 13.1 g/dL L g/dL (14-18) Ionized Calcium 1.2 mmol/L mmol/L (1.1-1.4) O2 Delivery Device Nc O2 Liters/Min 2.0 % % FiO2 28.0 % % Hot Dip Tinning Supervisor ID Ed Sodium 134.0 mmol/L mmol /L (131-143) Potassium 4.7 mmol/L mmol/L (3.5-5.0) Chloride Carbon Dioxide Anion Gap BUN Creatinine GFR Calculation Glucose 94.0 mg/dL mg/dL (70-115) Calculated Osmolal ity Calcium Total Bilirubin AST ALT Alkaline Phosphata se Troponin T Baselin e Troponin T 120 Min hughes 29.53 ng/L H ng/L (0-15) Delta Troponin T -2.47 ABS# L ABS# (0-10) NT-Pro-B Natriuret Pep Total Protein Albumin Globulin Urine Color Yellow (Yellow) Urine Appearance Hazy A (CLEAR) Urine pH 5 (5-7) Ur Specific Gravit y 1.020 (1.005-1.030) Urine Protein Neg (Negative) Urine Glucose (UA) Norm (Normal) Urine Ketones Negative (Negative) Urine Blood Neg (Negative) Urine Nitrate Negative (Negative) Urine Bilirubin 1+ H (Negative) Urine Urobilinogen 1 mg/dL H mg/dL (Negative) Ur Leukocyte Leatha ase Negative (Negative) Urine RBC Rare /hpf /hpf (0-2) Urine WBC 0-4 /hpf H /hpf (0-5) Ur Squamous Epith Cells 0-4 /hpf H /hpf (0-5) Amorphous Sediment Not Reportable Urine Bacteria 1+ /hpf H /hpf (NONE) Hyaline Casts 0-4 /lpf H /lpf Urine Mucus 1+ /hpf /hpf Nasal/Oral COVID-1 9 PCR SARS-CoV-2 Ag (Rap id) 01/25/21 01/25/21 13:22 13:22 WBC RBC Hgb Hct MCV MCH MCHC RDW Plt Count MPV Neut % (Auto) Lymph % (Auto) [place] % (Auto) Eos % (Auto) Baso % (Auto) Neut # (Auto) Lymph # (Auto) [place] # (Auto) Eos # (Auto) Baso # (Auto) Nucleated RBC % (a uto) Nucleated RBCs # Specimen Type Sample Site ABG pH ABG pCO2 ABG pO2 ABG HCO3 ABG O2 Saturation ABG Base Excess Wisam Test A-a O2 Gradient Hematocrit Hgb O2 Saturation Carboxyhemoglobin Methemoglobin Total Hemoglobin Ionized Calcium O2 Delivery Device O2 Liters/Min FiO2 Hot Dip Tinning Supervisor ID Sodium Potassium Chloride Carbon Dioxide Anion Gap BUN Creatinine GFR Calculation Glucose Calculated Osmolal ity Calcium Total Bilirubin AST ALT Alkaline Phosphata se Troponin T Baselin e Troponin T 120 Min hughes Delta Troponin T NT-Pro-B Natriuret Pep Total Protein Albumin Globulin Urine Color Urine Appearance Urine pH Ur Specific Gravit y Urine Protein Urine Glucose (UA) Urine Ketones Urine Blood Urine Nitrate Urine Bilirubin Urine Urobilinogen Ur Leukocyte Leatha ase Urine RBC Urine WBC Ur Squamous Epith Cells Amorphous Sediment Urine Bacteria Hyaline Casts Urine Mucus Nasal/Oral COVID-1 9 PCR Not detected SARS-CoV-2 Ag (Rap id) Negative (Negative) Discharge Plan Discharge Patient Disposition: Home Clinical Impression: Congestive heart failure, Suspected 2019-nCoV infection Condition: Stable Prescriptions: New furosemide 40 mg tablet 40 mg PO DAILY Qty: 20 RF: 0 No Action cholecalciferol (vitamin D3) [Vitamin D3] 1,000 unit capsule 1,000 unit PO BID RF: 0 (DME) blood-glucose meter [Precision Xtra Monitor] Kit See Rx Instructions .ROUTE .MEDSUPPLY Qty: 1 RF: 0 lancets miscellaneous DAILY RF: 0 cyanocobalamin (vitamin B-12) 1 tab PO DAILY RF: 0 aspirin [Aspir-81] 81 mg tablet,delayed release (DR/EC) 81 mg PO DAILY RF: 0 coenzyme Q10 [Co Q-10] 30 mg capsule 30 mg PO DAILY Qty: 30 RF: 0 Centrum Silver 400-250 mcg tablet,chewable 1 tab PO DAILY Qty: 30 RF: 0 Trulicity 0.75 mg/0.5 mL pen injector 0.75 mg SUBCUT .weekly Qty: 6 RF: 0 levothyroxine 175 mcg tablet 175 mcg PO DAILY Qty: 30 RF: 2 lisinopril 20 mg tablet 20 mg PO DAILY Qty: 30 RF: 2 triamterene-hydrochlorothiazid 37.5-25 mg tablet 1 tab PO DAILY Qty: 30 RF: 2 nitroglycerin [Nitrostat] 0.4 mg tablet, sublingual 0.4 mg SUBLINGUAL Q5M PRN (Reason: chest pain) Qty: 30 RF: 0 clopidogrel 75 mg tablet See Rx Instructions .ROUTE .COMPLEX Qty: 90 RF: 3 metoprolol tartrate 25 mg tablet 25 mg PO BID Qty: 180 RF: 3 amiodarone 200 mg tablet See Rx Instructions .ROUTE .COMPLEX Qty: 180 RF: 3 atorvastatin 40 mg tablet 40 mg PO DAILY Qty: 90 RF: 3 doxazosin 1 mg tablet 1 mg PO DAILY Qty: 180 RF: 1 Discharge Orders: Discharge ED (Routine); Ordered 01/25/21 Ordered By: Jason Arias Other Ambulatory Orders: DME: Oxygen (Order) Location: None Selected Ordered By: Jason Arias Referrals: Jayleen Flores DRY MILL WORKER-C [Primary Care Provider] - Discharge Diet: Usual diet Discharge Activity: Limit activity as instructed Patient Instructions: Opioid Safety Activity Restrictions/Additional Instructions: Follow up with cardiology in 2-3 days. Coding Level of Care Code ED Therapeutic Recreation Leader for [place] Fwd Exam Comprehensive
[2021-01-25 11:55] LABS: ABG PCO2 41.7 mmHg (35-45); ABG PH Result 7.39 (7.35-7.45); Alveolar-Arterial Oxygen Gradi 5.6 mmHg (5-10); Base Excess ABG 0.4 mmol/L (-2.0-2.0); Blood Gas Allen Test Pos; Blood Gas Operator Identificat ED; Blood Gas Sample Site Radial, left; Blood Gas Sample Type Arterial; Carboxyhemoglobin 0.9 %THgb (0.4-20.1); HCO3 ABG 25.4 mmol/L (22-26); HGB O2 Sat 96.4 % (95-100); Ionized Calcium Level - ABG 1.2 mmol/L (1.1-1.4); Oxygen Device NC; Oxygen Saturation ABG 98.2; Potassium Level - ABG 4.7 mmol/L (3.5-5.0); Total Hemoglobin 13.1 g/dL (14-18)
[2021-01-25 11:56] LABS: Troponin(5th) Baseline 32 ng/L (0-15)
[2021-01-25 12:42] LABS: Troponin 5 2HR 29.53 ng/L (0-15)
--- NOTE | 2021-01-25 12:48 | ECG_ITS ---
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 Measurements Intervals [place] Rate: 67 P: 15 CT: 250 QRS: -62 QRSD: 185 T: 0 QT: 494 QTc: 524 Interpretive Statements SINUS RHYTHM WITH FIRST DEGREE AV BLOCK RIGHT BUNDLE BRANCH BLOCK [120+ ms QRS DURATION, UPRIGHT V1, 40+ ms S IN I/aVL/V4/V5/V6] LEFT ANTERIOR FASCICULAR BLOCK [QRS AXIS <= -45, QR IN I, RS IN II] POSSIBLE ANTERIOR MYOCARDIAL INFARCTION , OF INDETERMINATE AGE [30 ms Q WAVE IN V3/V4, OR R < 0.2 mV IN V4] Compared to ECG 01/25/2021 09:58:40 Myocardial infarct finding now present Electronically Signed On 01-25-2021 22:21:40 CDT by Mejia Hurtado M.D. [id number]
[2021-01-25 12:49] LABS: Troponin 5 2HR Delta -2.47 ABS# (0-10)
[2021-01-25] MEDS: FUROsemide 10 mg/mL SDV 10mL 60 MG IVP (13:28)
[2021-01-25 13:39] VITALS: O2SAT 87; O2SAT 94; O2SAT 95
[2021-01-25 13:50] VITALS: BP 108/62; PULSE 80; RESP 20; O2SAT 98
[2021-01-25 13:51] LABS: SARS Covid-2 Antigen Negative (Negative)
[2021-01-25 14:36] VITALS: PULSE 78; RESP 16; O2SAT 98
[2021-01-26 16:04] LABS: Coronavirus Test Green County Not Detected
== END 2021-01-25 14:37 | disposition home or self-care (01) ==
PROVIDERS: Emergency Provider Family Medicine; PCP Nurse Practitioner
DX: I11.0 Hypertensive heart disease with heart failure (principal); I50.9 Heart failure, unspecified; Z20.822 Contact with and (suspected) exposure to COVID-19; Z79.82 Long term (current) use of aspirin; Z79.02 Long term (current) use of antithrombotics/antiplatelets; I25.10 Atherosclerotic heart disease of native coronary artery without angina pectoris; E11.9 Type 2 diabetes mellitus without complications
CPT/HCPCS: 36600; 71045; 80051; 80053; 81001; 82330; 82805; 83880; 84484; 85025; 87426; 87635; 93005; 96374; 99284; J1940

== ENCOUNTER → 2021-02-02 09:59 | Outpatient (BNVA) | payer MEDICARE, OTHER, SELFPAY | PROVIDERS: PCP Nurse Practitioner; Visit Provider Nurse Practitioner | DX: G47.33 Obstructive sleep apnea (adult) (pediatric) (principal); E11.9 Type 2 diabetes mellitus without complications; I50.9 Heart failure, unspecified; R10.84 Generalized abdominal pain; R19.5 Other fecal abnormalities; Z23 Encounter for immunization; I10 Essential (primary) hypertension | CPT/HCPCS: 80048; 83880; 85025 ==

== ENCOUNTER 2021-02-10 12:59 | Outpatient (CLI) | payer MEDICARE, OTHER, SELFPAY ==
[2021-02-10] MEDS: iohexol 300 mg/mL 50 mL Btl PO (13:16)
--- NOTE | 2021-02-10 14:00 | CT_ITS ---
WS: [id number] CT ABDOMEN PELVIS TECHNIQUE: Noncontrast CT of the abdomen and pelvis with coronal and sagittal reformatted images. CLINICAL INFORMATION: R10.84 - Generalized abdominal pain COMPARISON: None. DLP: 1126.[address] scans at [facility] use at least one of these dose optimization techniques: automated e xposure control; mA and/or kV adjustment per patient size (includes targeted exams where dose is matc hed to clinical indication); or iterative reconstruction. FINDINGS: Lung bases are well aerated. Noncontrast liver is normal. Normal gallbladder. Normal spleen. Small sp lenule. Mild fatty atrophy of the pancreas. Adrenal glands are normal. Normal GE junction. No obstruc ting renal or ureteral calculi. No hydronephrosis in either kidney. Normal caliber abdominal aorta. N o abdominal or pelvic lymphadenopathy. Prominent prostate measuring 4.3 CCM. A few sigmoid diverticuli. No evidence of acute diverticulitis. No evidence of high-grade small or la rge bowel obstruction. Tiny fat-containing umbilical hernia. A few slightly prominent left inguinal l ymph nodes likely reactive. Disc space narrowing L3-L4 L4-L5 and L5-S1. CT/CT abdomen pelvis wo con [id number] IMPRESSION: 1. Sigmoid diverticulosis. No evidence of acute diverticulitis. 2. No evidence of small or large bowel obstruction. 3. No free fluid in the abdomen or pelvis. 4. No obstructing renal or ureteral calculi. 5. Enlarged prostate measuring 4.3 CCM. Recommend correlation PSA. 6. No other significant findings.
== END 2021-02-10 13:00 | disposition home or self-care (01) ==
PROVIDERS: PCP Nurse Practitioner; Visit Provider Nurse Practitioner
DX: R10.84 Generalized abdominal pain (principal); R19.5 Other fecal abnormalities; N40.0 Benign prostatic hyperplasia without lower urinary tract symptoms; K57.30 Diverticulosis of large intestine without perforation or abscess without bleeding
CPT/HCPCS: 74176; Q9967

== ENCOUNTER → 2021-03-08 08:08 | Outpatient (BNVA) | payer MEDICARE, OTHER, SELFPAY | PROVIDERS: PCP Nurse Practitioner; Visit Provider Internal Medicine Hematology & Oncology | DX: Z12.5 Encounter for screening for malignant neoplasm of prostate (principal); I50.9 Heart failure, unspecified; E66.01 Morbid (severe) obesity due to excess calories; I10 Essential (primary) hypertension | CPT/HCPCS: 80048; 83735; 83880; G0103 ==

== ENCOUNTER 2021-03-10 08:43 | Outpatient (CLI) | payer MEDICARE, OTHER, SELFPAY ==
--- NOTE | 2021-03-10 09:45 | CT_ITS ---
WS: [id number] CT CHEST TECHNIQUE: Noncontrast CT of the chest with coronal and sagittal reformatted images. CLINICAL INFORMATION: I50.9 - Heart failure, unspecified COMPARISON: Radiograph January 25, 2021 DLP: 744.[address] scans at [facility] use at least one of these dose optimization techniques: automated e xposure control; mA and/or kV adjustment per patient size (includes targeted exams where dose is matc hed to clinical indication); or iterative reconstruction. FINDINGS: Both lungs are well aerated. No acute pulmonary infiltrates. No consolidation or pleural fluid. Sligh t subsegmental atelectasis left lower lobe. Previously described infiltrate in the left midlung appea rs to have resolved. No suspicious pulmonary infiltrates. Normal caliber thoracic aorta. Coronary calcification. No mediastinal or hilar lymphadenopathy. Stacia l GE junction. Adrenal glands are normal. No axillary lymphadenopathy. Hypertrophic changes thoracic spine. CT/CT chest wo con [id number] IMPRESSION: 1. Previously described left midlung infiltrate has resolved. Slight atelectas is left lower lobe. No suspicious infiltrates today. 2. No focal pneumonia or pleural fluid. 3. No mediastinal or hilar lymphadenopathy. 4. No other significant findings.
== END 2021-03-10 08:44 | disposition home or self-care (01) ==
PROVIDERS: PCP Nurse Practitioner; Visit Provider Internal Medicine Cardiovascular Disease
DX: J96.90 Respiratory failure, unspecified, unspecified whether with hypoxia or hypercapnia (principal); I50.9 Heart failure, unspecified; J98.11 Atelectasis
CPT/HCPCS: 71250

== ENCOUNTER → 2021-04-08 09:55 | Outpatient (BNVA) | payer MEDICARE, OTHER, SELFPAY | PROVIDERS: PCP Nurse Practitioner; Visit Provider Urology | DX: R39.9 Unspecified symptoms and signs involving the genitourinary system (principal) | CPT/HCPCS: 81003 ==

== ENCOUNTER 2021-04-15 09:07 | Outpatient (CLI) | payer MEDICARE, OTHER, SELFPAY ==
[2021-04-15 09:24] VITALS: BMI 42.5
--- NOTE | 2021-04-15 09:24 | ECG_ITS ---
[facility] Test Date: 2021-04-15 Pat Name: Alexei Hoffmann Department: Room: Gender: Male Physician Office Rep: Julee Bianchi : 1945 Requested By: Norma Mullins Order Number: [id number] Farnaz MD: Norma Mullins M.D. Interpretive Statements NAME OF STUDY: LEXISCAN SESTAMIBI STRESS TEST INDICATION: Dyspnea on exertion PROCEDURE: At the baseline, the blood pressure was 141/58 mmHg, oxygen saturation 93% with a heart rate of 57 bpm. The electrocardiogram showed sinus bradycardia with artifact. Right bundle branch block. Left axis deviation. The Lexiscan was infused over a period of 20 seconds. A total of 0.4 milligrams of Lexiscan was infused. The stress phase was continued for a total of 5 minutes. Heart rate at the end of the stress phase was 70 bpm, oxygen saturation 92% with a blood pressure of 134/68 mmHg. The EKG at the peak infusion revealed no significant ST-T wave changes. Interpretation limited by artifact. Sestamibi was injected 20 seconds after the Lexiscan infusion. Blood pressure at the end of the recovery phase was 124/68 mmHg, oxygen saturation 92% with a heart rate of 76 beats per minute. CONCLUSION: 1. No significant EKG changes with the LexiScan infusion. 2. No LexiScan induced chest pain or cardiac arrhythmia. 3. Normal blood pressure and heart rate response. 4. Sestamibi/sestamibi perfusion scan pending; see separate report. Electronically Signed On 04-21-2021 11:41:23 DISTRIBUTION MANAGER by Norma Mullins M.D. [email or web address]/[id number]
--- NOTE | 2021-04-15 09:25 | NMCV_ITS ---
NM sera perf SPECT r/s* [id number] HoffmannAlexei Age: 75 Gender: M : 1945 Exam Date: 04/15/2021 09:25 Ordering Phys: Norma Mullins MD ([email or web address]) Technologist: SAMEER Rivera Exam Location: [facility] Indications: SHORTNESS OF BREATH STRESS TEST Please see separate stress test report in [facility] for full findings IMAGE PROTOCOL Rest/Stress 1 Lexiscan Day Radiopharmaceutical Dose (mCi) Administration Site Administered by Rest: Tc-99m 10.5 IV SAMEER Maki Sestamibi Stress:Tc-99m 32.3 IV SAMEER Maki Sestamibi Rest: 15-Apr-2021 60 Discovery 630 Stress: 15-Apr-2021 30 Discovery 630 0.4mg Lexiscan. Supine position only as patient was unable to lay prone. SPECT RESULTS Technical Quality: Excellent Raw Data Analysis: Normal Image Corrections: No attenuation or motion correction applied Summed Stress Score: 9 Summed Rest Score: 13 Summed Difference Score: 1 PERFUSION FINDINGS Medium sized perfusion abnormality of moderate severity of basal to apical inferior, mid to apical inferolateral burns on rest images with some per what improved tracer uptake in lateral wall on stress images. FUNCTIONAL RESULTS (calculated via Gated SPECT) Stress Image LV EF (%): 52 Stress EDV (mL):190 TID: 0.88 Stress ESV (mL):92 FUNCTIONAL FINDINGS: The left ventricle is normal in size. Transient Ischemia Dilatation of 0.88. There is low normal left ventricular systolic function. The left ventricular ejection fraction is low normal with a value of 52%. There is mild hypokinesis of basal inferior wall. IMPRESSIONS 1. Medium sized perfusion abnormality of moderate severity of basal to apical inferior, mid to apical inferolateral burns. 2. This may represent old myocardial infarction in right coronary artery/circumflex artery territory or attenuation artifact. 3. The left ventricular ejection fraction is low normal with a value of 52%. 4. There is mild hypokinesis of basal inferior wall. 5. No coronary ischemia based on this study. Norma Mullins MD (Electronically Signed) Final Date: 18 April 2021 15:56 S
[2021-04-15] MEDS: regadenoson 0.4 Mg/5 ml Syringe IVP (11:35)
[2021-04-15 12:02] VITALS: BP 124/68; PULSE 61
== END 2021-04-15 09:08 | disposition home or self-care (01) ==
LOC: CDL 09:10
PROVIDERS: PCP Nurse Practitioner; Visit Provider Internal Medicine Cardiovascular Disease
DX: R06.02 Shortness of breath (principal)
CPT/HCPCS: 78452; 93017; A9500; J2785

== ENCOUNTER 2021-04-18 12:25 | Emergency (ER) | payer MEDICARE, OTHER, SELFPAY ==
[2021-04-18 12:37] VITALS: BP 145/62; PULSE 66; RESP 18; TEMP 36.3; O2SAT 95; BMI 42.5
--- NOTE | 2021-04-18 14:09 | ECG_ITS ---
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: : 1945 Requested By: Viola Phelan Order Number: [id number] Reading MD: DELONTE CHAIREZ Measurements Intervals [place] Rate: 56 P: 43 ME: 275 QRS: -56 QRSD: 121 T: 0 QT: 229 QTc: 221 Interpretive Statements SINUS BRADYCARDIA WITH FIRST DEGREE AV BLOCK POSSIBLE RIGHT VENTRICULAR CONDUCTION DELAY [RSR (QR) IN V1/V2] LEFT ANTERIOR FASCICULAR BLOCK [QRS AXIS <= -45, QR IN I, RS IN II] POSSIBLE ANTERIOR MYOCARDIAL INFARCTION , PROBABLY OLD [30 ms Q WAVE IN V3/V4, OR R < 0.2 mV IN V4] Compared to ECG 01/25/2021 13:45:47 There is no significant change Electronically Signed On 04-18-2021 19:57:33 LOOM OPERATOR by DELONTE CHAIREZ [id number]
[2021-04-18 14:22] LABS: Add Urine Microscopic? NO; Charge for UA Resulting for Rev
[2021-04-18 14:24] LABS: Bilirubin Urine Neg (Negative); Blood Urine Neg (Negative); Glucose Urine UA Norm (Normal); Ketones Urine Negative (Negative); Leukocyte Esterase Urine Negative (Negative); Nitrate Urine Negative (Negative); Protein Urine Neg (Negative); Urine Appearance Clear (CLEAR); Urine Color Yellow (Yellow); Urobilinogen Urine Norm (Negative); pH Urine 5 (5-7)
--- NOTE | 2021-04-18 14:24 | W.ED.GENADLT ---
HPI - General Adult General: Chief complaint: Abdominal Pain Stated complaint: L SIDE ABD & BACK PAIN Time Seen by Provider: 04/18/21 13:24 History of Present Illness: HPI narrative: Patient is a 75-year-old male with a history of home O2, L right lower extremity DVT, prior hernia repair, on home O2, CAD status post stent x1 presenting to the emergency room for evaluation of LUQ abdominal pain and left flank x 3-4 days and L back pain x 8-10 days. Patient says that she has been having 8 to 10 days of left-sided back pain. About 3 to 4 days ago, he began having left upper quadrant abdominal pain is worse with exertion or ambulation. Patient denies any pain worse with p.o. intake. Patient has no chest pain, shortness breath, tiredness. Patient reports the pain is worse when she takes a deep breath. Patient had recently underwent a stress test. Patient denies any fever/chills, hematemesis, nausea/vomiting, arm pain back pain jaw pain. Patient has no diarrhea, melena or hematochezia. No other prior abdominal surgeries. No history of kidney stones. No symptoms of dysuria, hematuria or polyuria. No new penile discharge. Onset: LUQ pain x 3-4 days and L back pain x 8-10 days Duration:ongoing Location:home Severity:moderate Review of Systems Narrative: Constitutional: No fever, no chills. HEENT: No vision changes CV: No chest pain, no palpitations PULM: no cough, no dyspnea. GI: +LUQ/L flankabdominal pain, no N/V/D. : No dysuria MSKEL: No muscle pain SKIN: No new rashes, no lesions. NEURO: No headache, no focal weakness. HEME: No visible bruises PSYCH: Normal mood PFSH ED PFSH: Medical History Adult hypothyroidism Benign hypertension CAD (coronary artery disease) Controlled diabetes mellitus without complication, without long-term current use of insulin Degenerative arthritis of hip DVT (deep venous thrombosis) Frequent PVCs SHIRA treated with BiPAP Severe obesity (BMI >= 40) Urine stream spraying Vitamin D deficiency Surgical History History of hernia repair Bilateral inguinal and umbilical Family History Mother , 80'S Cancer Other Heart disease Hypertension Social History Alcohol intake: current Alcohol intake frequency: holidays/special occasions only Household members: spouse Housing: House Marital status: Current occupational status: retired History of recent travel: No Physical Exam Narrative: EXAM NARRATIVE: Head: Atraumatic Eyes: PERRL, conjunctiva without injection ENT: Mucous membrane moist NECK: Supple, ROM intact LUNGS: LCTAB, no crackles/rhonchi CV: RRR ABDOMEN: Soft, +mild focal LQ TTP. NO guarding rebound, guarding, rigidity. No CVA tenderness to percussion. Neg Fernandez/Neg McBurney's point tenderness, no suprabupic tenderness to palpation. EXTREMITY: Normal ROM SKIN: No rash or erythema NEURO: Awake and alert, no focal motor deficits PSYCH: Normal mood and affect Course Vital Signs: Vital signs: Vital Signs Temperature 97.3 F L 04/18/21 12:37 Pulse Rate 54 L 04/18/21 19:13 Respiratory Rate 18 04/18/21 12:37 Blood Pressure 143/80 04/18/21 19:13 Pulse Oximetry 95 04/18/21 19:13 MDM - General Adult MDM Narrative: Medical decision making narrative: Patient is 75-year-old male presenting to the emergency room with exertional left-sided upper abdominal/lower chest and left lateral flank pain. Exam patient does have appear to have a tenderness to palpation on the upper abdomen. Patient has no guarding or rebound tenderness. Lab work-up showed white count of 5.0. Patient noted to have hemoglobin 0.1 consistent with baseline. Patient is noted to have microcytic anemia needs to be worked up. Cr consistent with baseline 1.5. Given exertional nature of the pain, I ordered 2 sets of troponins are similar to baseline. In addition, patient has had a recent stress test reviewed with Dr. Toure today that was negative. Dimer appears to be elevated, CTA chest negative for PE. CTA chest has limited evaluation of the left upper quadrant which did not show any signs of focal pathology including free air, perf or splenic injuries. Patient's pain appears to be improved with Pepcid Maalox morphine in the emergency room. Patient received 500 cc fluid for CKD. At the present time, it is clear what is the source of patient's pain. Doubt ACS/PE or other emergent causes of chest pain. No suspicion for aortic dissection given no widened mediastinum, 2+ upper extremity pulses, or tearing pain. No suspicion for PE given no pleuritic chest pain, recent immobilization or surgery hemoptysis, or other VTE risk factors. EKG is non-ischemic. CTA normal. No suspicion for other acute intra-abdominal pathology including SBO, biliary pathology, appendicitis, diverticulitis, or other emergent condition requiring surgery. Rx pepcid/maalox PRN pain, percocet x 5 tablets He tells me that he has an appointment with Dr. Watson tomorrow and I have instructed patient to keep this apointment. In addition, I have instructed patient to follow closely with Dr. Freire for further evaluation this week. Disposition: Discharge. Patient counseled regarding diagnostic impression, treatment plan. Patient given ED strict return precautions to return for continuation, worsening, or development of new symptoms. Instructed to f/u w/ PCP regarding symptoms today. Patient verbalized understanding. Lab Data: Labs: Lab Results 04/18/21 04/18/21 04/18/21 12:50 15:09 15:09 WBC 5.0 10^3/uL 10^3/ uL (4.0-10.0) RBC 3.35 10^6/uL L 10 ^6/uL (4.1-5.3) Hgb 11.5 g/dL L g/dL (11.7-16.6) Hct 36.6 % L % (42.0-52.0) MCV 109.3 fl H fl (80-94) MCH 34.3 pg H pg (28.0-34.0) MCHC 31.4 g/dL g/dL (30.0-36.0) RDW 14.6 % % (12.1-15.1) Plt Count 189 10^3/cmm 10^3 /cmm (130-400) MPV 10.1 fL fL (7.4-10.4) Neut % (Auto) 61.0 % % Lymph % (Auto) 20.2 % % [place] % (Auto) 10.7 % % Eos % (Auto) 6.7 % % Baso % (Auto) 0.6 % % Neut # (Auto) 3.07 10^3/uL 10^3 /uL (1.8-7.7) Lymph # (Auto) 1.0 10^3/uL 10^3/ uL (0.8-4.8) [place] # (Auto) 0.5 10^3/uL 10^3/ uL (0.2-0.9) Eos # (Auto) 0.3 10^3/uL 10^3/ uL (0.0-0.8) Baso # (Auto) 0.0 10^3/uL 10^3/ uL (0.0-0.1) Nucleated RBC % (a uto) 0 % % Nucleated RBCs # 0.0 /100WBC /100W BC D-Dimer Sodium 140 mmol/L mmol/L (136-145) Potassium 4.6 mmol/L mmol/L (3.5-5.1) Chloride 107 mmol/L mmol/L (98-107) Carbon Dioxide 20 mmol/L L mmol/ L (22-29) Anion Gap 17.6 (5-19) BUN 31 mg/dL H mg/dL (8-23) Creatinine 1.5 mg/dL H mg/dL (0.7-1.2) GFR Calculation Not Reportable Glucose 121 mg/dL H mg/dL (65-115) Calculated Osmolal ity 298 mOsm/kg H mOs m/kg (285-295) Calcium 8.0 mg/dL L mg/dL (8.5-10.5) Total Bilirubin 0.4 mg/dL mg/dL (0.15-1.2) AST 21 U/L U/L (0-40) ALT 22 U/L U/L (0-41) Alkaline Phosphata se 109 IU/L IU/L (40-130) Troponin T Baselin e Troponin T 120 Min [place] Troponin T Total Protein 6.2 g/dL L g/dL (6.6-8.7) Albumin 4.0 g/dL g/dL (3.5-5.2) Globulin 2.2 g/dL g/dL (1.3-4.6) Lipase 37 U/L U/L (13-60) Urine Color Yellow (Yellow) Urine Appearance Clear (CLEAR) Urine pH 5 (5-7) Ur Specific Gravit y 1.010 (1.005-1.030) Urine Protein Neg (Negative) Urine Glucose (UA) Norm (Normal) Urine Ketones Negative (Negative) Urine Blood Neg (Negative) Urine Nitrate Negative (Negative) Urine Bilirubin Neg (Negative) Urine Urobilinogen Norm mg/dL mg/dL (Negative) Ur Leukocyte Leatha ase Negative (Negative) 04/18/21 04/18/21 04/18/21 15:09 15:09 17:29 WBC RBC Hgb Hct MCV MCH MCHC RDW Plt Count MPV Neut % (Auto) Lymph % (Auto) [place] % (Auto) Eos % (Auto) Baso % (Auto) Neut # (Auto) Lymph # (Auto) [place] # (Auto) Eos # (Auto) Baso # (Auto) Nucleated RBC % (a uto) Nucleated RBCs # D-Dimer 1.94 ug/mIFEU H u g/mIFEU (0-0.59) Sodium Potassium Chloride Carbon Dioxide Anion Gap BUN Creatinine GFR Calculation Glucose Calculated Osmolal ity Calcium Total Bilirubin AST ALT Alkaline Phosphata se Troponin T Baselin e 23 ng/L H ng/L (0-15) Troponin T 120 Min [place] 24.41 ng/L H ng/L (0-15) [place] Troponin T 1.41 ABS# ABS# (0-10) Total Protein Albumin Globulin Lipase Urine Color Urine Appearance Urine pH Ur Specific Gravit y Urine Protein Urine Glucose (UA) Urine Ketones Urine Blood Urine Nitrate Urine Bilirubin Urine Urobilinogen Ur Leukocyte Leatha ase Imaging Data^: Other Imaging: Radiologist's impression: [address] [id number] Scan ReportSigned Patient: Alexei Hoffmann AUnit #: [id number]: 1945cct#:[id number]/Sex: 75 / MADM Date: 04/18/21Loc: ERRoom/Bed:Attending Dr: Ordering Provider/Ordering MD: Viola Phelan MD Date of Service: 04/18/21 Procedure(s): CT angio chest PE protcl [id number] Accession Number(s): [id number] Report Number: [id number] PROCEDURE INFORMATION: Exam: CTA Chest With Contrast Exam date and time: 04/18/2021 3:51 PM Age: 75 years old Clinical indication: Shortness of breath; Prior surgery; Surgery type: Stents; Additional info: Eval pe TECHNIQUE: Imaging protocol: Computed tomographic angiography of the chest with contrast. 3D rendering (Not supervised by radiologist): MIP and/or 3D reconstructed images were created by the technologist. Radiation optimization: All CT scans at this facility use at least one of these dose optimization techniques: automated exposure control; mA and/or kV adjustment per patient size (includes targeted exams where dose is matched to clinical indication); or iterative reconstruction. Contrast material: VISI 320; Contrast volume: 73 ml; Contrast route: INTRAVENOUS (IV); COMPARISON: CT chest wo con [id number] 03/10/2021 9:26 AM RADIATION DOSE METRICS: Total DLP (mGy-cm): 1252.63 FINDINGS: Pulmonary arteries: The pulmonary arteries are adequately opacified for evaluation to the subsegmental level. There is no filling defect to suggest embolism. Aorta: The aorta is unremarkable. There is no aneurysm. Lungs: There is subsegmental atelectasis in the lung bases. Pleural spaces: There is no pleural effusion or pneumothorax. Heart: There is mild cardiac enlargement. There is no pericardial effusion. There is mild coronary artery calcification. Lymph nodes: There is no mediastinal or hilar lymphadenopathy. Intraperitoneal space: Visible structures in the upper abdomen are unremarkable. Bones/joints: Bones are unremarkable. Soft tissues: The extrathoracic soft tissues are unremarkable. CT/CT angio chest PE protcl [id number] IMPRESSION: No pulmonary embolism. Dictated By:Seven Moyer MDSigned By:Seven Moyer MDSigned Date/Time:04/18/21 1732DD/ 1551 Discharge Plan Discharge Patient Disposition: Home Clinical Impression: Abdominal pain Condition: Stable Prescriptions: New acetaminophen 500 mg tablet 500 mg PO Q6H PRN (Reason: pain) 5 Days Qty: 20 RF: 0 Pepcid 20 mg tablet 20 mg PO BID PRN (Reason: abdominal pain) 10 Days Qty: 20 RF: 0 Maalox Advanced 1,000-60 mg tablet,chewable 1 tab PO TID PRN (Reason: abdominal pain) 7 Days Qty: 21 RF: 0 Percocet 5-325 mg tablet 1 tab PO Q8H PRN (Reason: pain) Qty: 5 RF: 0 No Action cholecalciferol (vitamin D3) [Vitamin D3] 1,000 unit capsule 1,000 unit PO BID RF: 0 (DME) blood-glucose meter [Precision Xtra Monitor] Kit See Rx Instructions .ROUTE .MEDSUPPLY Qty: 1 RF: 0 lancets miscellaneous DAILY RF: 0 cyanocobalamin (vitamin B-12) 1 tab PO DAILY RF: 0 aspirin [Aspir-81] 81 mg tablet,delayed release (DR/EC) 81 mg PO DAILY RF: 0 lisinopril 20 mg tablet 10 mg PO DAILY Qty: 30 RF: 2 coenzyme Q10 [Co Q-10] 30 mg capsule 30 mg PO DAILY Qty: 30 RF: 0 Centrum Silver 400-250 mcg tablet,chewable 1 tab PO DAILY Qty: 30 RF: 0 Trulicity 0.75 mg/0.5 mL pen injector 0.75 mg SUBCUT .weekly Qty: 6 RF: 0 Advanced Probiotic 625 mg (10 billion cell) capsule PO RF: 0 nitroglycerin [Nitrostat] 0.4 mg tablet, sublingual 0.4 mg SUBLINGUAL Q5M PRN (Reason: chest pain) Qty: 30 RF: 0 clopidogrel 75 mg tablet See Rx Instructions .ROUTE .COMPLEX Qty: 90 RF: 3 metoprolol tartrate 25 mg tablet 25 mg PO BID Qty: 180 RF: 3 amiodarone 200 mg tablet See Rx Instructions .ROUTE .COMPLEX Qty: 180 RF: 3 atorvastatin 40 mg tablet 40 mg PO DAILY Qty: 90 RF: 3 doxazosin 1 mg tablet 1 mg PO DAILY Qty: 180 RF: 1 (DME) oxygen concentrator See Rx Instructions .Route .MEDSUPPLY Qty: 1 RF: 0 levothyroxine 175 mcg tablet 175 mcg PO DAILY Qty: 30 RF: 2 triamterene-hydrochlorothiazid 37.5-25 mg tablet 1 tab PO DAILY Qty: 90 RF: 3 Discharge Orders: Discharge ED (Routine); Ordered 04/18/21 Ordered By: Viola Phelan Referrals: Jayleen Flores, [employer] [Primary Care Provider] - Discharge Diet: Advance as tolerated Discharge Activity: Resume usual activity Patient Instructions: Abdominal Pain (ED) Activity Restrictions/Additional Instructions: Please keep your appointment Dr. Watson tomorrow. Please follow-up with Dr. Benson within this week to reassess your abdominal pain. Please come back if you have any worsening abdominal pain, fever or chills, nausea or vomiting, diarrhea, blood in the stool, inability hold down liquid or solids, or any new concerning complaints. Come back to the emergency room if you have any chest pain, fever or chills, worsening shortness of breath, worsening exertional lightheadedness, or any new or concerning complaints. 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
[2021-04-18] MEDS: acetaminophen 500 mg Tablet PO (14:29)
[2021-04-18 15:17] LABS: Basophils % 0.6 %; Eosinophils # 0.3 10^3/uL (0.0-0.8); Eosinophils % 6.7 %; Hematocrit 36.6 % (42.0-52.0); Hemoglobin 11.5 g/dL (11.7-16.6); Lymphocytes % 20.2 %; Mean Corpuscular HGB Conc 31.4 g/dL (30.0-36.0); Mean Corpuscular Hemoglobin 34.3 pg (28.0-34.0); Mean Corpuscular Volume 109.3 fl (80-94); Mean Platelet Volume 10.1 fL (7.4-10.4); Monocytes # 0.5 10^3/uL (0.2-0.9); Monocytes % 10.7 %; Neutrophils # 3.07 10^3/uL (1.8-7.7); Nucleated Red Blood Cells % 0 %; Platelet Count 189 10^3/cmm (130-400); Red Blood Count 3.35 10^6/uL (4.1-5.3); Red Cell Distribution Width 14.6 % (12.1-15.1)
[2021-04-18 15:35] VITALS: BP 145/68; PULSE 55; O2SAT 94
[2021-04-18 15:35] LABS: D Dimer 1.94 ug/mIFEU (0-0.59)
[2021-04-18 15:37] LABS: Alanine Aminotransferase 22 U/L (0-41); Alkaline Phosphatase 109 IU/L (40-130); Anion Gap 17.6 (5-19); Aspartate Amino Transferase 21 U/L (0-40); Blood Urea Nitrogen 31 mg/dL (8-23); Carbon Dioxide 20 mmol/L (22-29); Chloride 107 mmol/L (98-107); Globulin 2.2 g/dL (1.3-4.6); Glucose 121 mg/dL (65-115); Lipase 37 U/L (13-60); Osmolality Calculated 298 mOsm/kg (285-295); Potassium 4.6 mmol/L (3.5-5.1); Sodium 140 mmol/L (136-145); Total Bilirubin 0.4 mg/dL (0.15-1.2); Total Protein 6.2 g/dL (6.6-8.7)
[2021-04-18 15:38] LABS: Troponin(5th) Baseline 23 ng/L (0-15)
[2021-04-18] MEDS: morphine 4 mg/mL SDV 1 mL IVP (15:42)
--- NOTE | 2021-04-18 15:51 | CTR_ITS ---
PROCEDURE INFORMATION: Exam: CTA Chest With Contrast Exam date and time: 04/18/2021 3:51 PM Age: 75 years old Clinical indication: Shortness of breath; Prior surgery; Surgery type: Stents; Additional info: Eval pe TECHNIQUE: Imaging protocol: Computed tomographic angiography of the chest with contrast. 3D rendering (Not supervised by radiologist): MIP and/or 3D reconstructed images were created by the technologist. Radiation optimization: All CT scans at this facility use at least one of these dose optimization techniques: automated exposure control; mA and/or kV adjustment per patient size (includes targeted exams where dose is matched to clinical indication); or iterative reconstruction. Contrast material: VISI 320; Contrast volume: 73 ml; Contrast route: INTRAVENOUS (IV); COMPARISON: CT chest wo con [id number] 03/10/2021 9:26 AM RADIATION DOSE METRICS: Total DLP (mGy-cm): 1252.63 FINDINGS: Pulmonary arteries: The pulmonary arteries are adequately opacified for evaluation to the subsegmental level. There is no filling defect to suggest embolism. Aorta: The aorta is unremarkable. There is no aneurysm. Lungs: There is subsegmental atelectasis in the lung bases. Pleural spaces: There is no pleural effusion or pneumothorax. Heart: There is mild cardiac enlargement. There is no pericardial effusion. There is mild coronary artery calcification. Lymph nodes: There is no mediastinal or hilar lymphadenopathy. Intraperitoneal space: Visible structures in the upper abdomen are unremarkable. Bones/joints: Bones are unremarkable. Soft tissues: The extrathoracic soft tissues are unremarkable. CT/CT angio chest PE protcl [id number] IMPRESSION: No pulmonary embolism.
[2021-04-18] MEDS: iodixanol 320 mg/mL 100mL Btl IV (16:46)
[2021-04-18] MEDS: sodium chloride 0.9% 500 ML IV (17:19)
[2021-04-18 17:30] VITALS: BP 152/82; PULSE 56; O2SAT 94
[2021-04-18 18:19] LABS: Troponin 5 2HR 24.41 ng/L (0-15); Troponin 5 2HR Delta 1.41 ABS# (0-10)
[2021-04-18] MEDS: famotidine 20 mg Tablet PO (19:12)
[2021-04-18] MEDS: alum-mag-hydroxide-sime 30 mL UDC PO (19:12)
[2021-04-18] MEDS: orphenadrine 30 mg/mL Inj 2 mL 60 MG IVP (19:12)
[2021-04-18 19:13] VITALS: BP 143/80; PULSE 54; O2SAT 95
== END 2021-04-18 19:14 | disposition home or self-care (01) ==
PROVIDERS: Emergency Medicine; Emergency Provider Emergency Medicine; PCP Nurse Practitioner
DX: R10.9 Unspecified abdominal pain (principal); Z79.82 Long term (current) use of aspirin; Z79.02 Long term (current) use of antithrombotics/antiplatelets; I10 Essential (primary) hypertension; I25.10 Atherosclerotic heart disease of native coronary artery without angina pectoris; E11.9 Type 2 diabetes mellitus without complications; Z99.81 Dependence on supplemental oxygen
CPT/HCPCS: 71275; 80053; 81003; 83690; 84484; 85025; 85378; 93005; 96361; 96374; 96375; 99284; J2270; J2360; J7040; Q9967

== ENCOUNTER 2021-04-22 08:07 | Outpatient (CLI) | payer MEDICARE, OTHER, SELFPAY ==
--- NOTE | 2021-04-22 08:55 | XRR_ITS ---
PROCEDURE INFORMATION: Exam: XR Thoracic Spine Exam date and time: 04/22/2021 8:55 AM Age: 75 years old Clinical indication: Pain in thoracic spine; Additional info: M54.6 - pain in thoracic spine TECHNIQUE: Imaging protocol: XR of the thoracic spine. Views: 3 views. COMPARISON: CT chest wo con [id number] 03/10/2021 9:26 AM FINDINGS: Bones/joints: No acute fracture. Normal alignment. Moderate multilevel endplate degenerative changes. Soft tissues: Unremarkable. XR/XR thoracic spine 3V* [id number] IMPRESSION: No acute findings. 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
== END 2021-04-22 08:08 | disposition home or self-care (01) ==
LOC: RAD 08:11
PROVIDERS: PCP Nurse Practitioner; Visit Provider Nurse Practitioner
DX: M47.814 Spondylosis without myelopathy or radiculopathy, thoracic region (principal)
CPT/HCPCS: 72072

== ENCOUNTER → 2021-05-24 16:12 | Outpatient (BNVA) | payer MEDICARE, OTHER, SELFPAY | PROVIDERS: PCP Nurse Practitioner; Visit Provider Nurse Practitioner | DX: I10 Essential (primary) hypertension (principal); K59.00 Constipation, unspecified; E03.9 Hypothyroidism, unspecified; E87.5 Hyperkalemia; I25.10 Atherosclerotic heart disease of native coronary artery without angina pectoris; I50.9 Heart failure, unspecified; R06.00 Dyspnea, unspecified; I49.3 Ventricular premature depolarization; N17.9 Acute kidney failure, unspecified; M79.18 Myalgia, other site | CPT/HCPCS: 80048; 83735; 83880; 84443 ==

== ENCOUNTER → 2021-06-18 08:09 | Outpatient (BNVA) | payer MEDICARE, OTHER, SELFPAY | PROVIDERS: PCP Nurse Practitioner; Visit Provider Internal Medicine Pulmonary Disease | DX: R06.00 Dyspnea, unspecified (principal); Z20.822 Contact with and (suspected) exposure to COVID-19; Z01.812 Encounter for preprocedural laboratory examination | CPT/HCPCS: 87635 ==

== ENCOUNTER 2021-06-25 09:30 | Emergency (ER) | payer MEDICARE, OTHER, SELFPAY ==
[2021-06-25 09:34] VITALS: BP 169/76; PULSE 62; RESP 20; TEMP 36.6; O2SAT 97; BMI 42.7
--- NOTE | 2021-06-25 09:53 | ED_ITS ---
HPI - Extremity Problem General: Chief complaint: Extremity Injury, Lower Stated complaint: R leg injury Time Seen by Provider: 06/25/21 09:40 History of Present Illness: Patient is a 75-year-old male comes to the ED with right leg wound. Past medical history of obesity, CHF, diabetes. Approximately 1 week ago he was working on an old barn. He had a fall from standing while working in the barn. He was able to get back up himself and continued working. After the fall he did not have any pain or injuries noted. When he finished working on the barn went back into his house he realized he had some blood on his right sock and when he took his sock off he noticed a cut on his lateral aspect of the right lower leg just above the ankle. Denies ever cleaning out wound. He has been bandaging it and putting triple antibiotic ointment on it for the past week. He received a tetanus shot last week as well. Wound is now become red, warm, tender and is oozing some blood and pus. Denies any fever, chills nausea/vomiting, chest pain. Associated symptoms: Deny chest pain, fever(s) or rash Review of Systems Const: Denies: fever(s), chills or fatigue Eyes: Denies: change in vision or eye discomfort ENMT: Denies: throat pain, odynophagia, nasal discharge or nasal congestion Card: Denies: chest pain, palpitations, edema, swelling of feet/ankles, dyspnea on exertion or orthopnea Resp: Denies: dyspnea, productive cough or non-productive cough GI: Denies: abdominal pain, nausea, vomiting, diarrhea, constipation or hematochezia : Denies: flank pain, difficulty urinating, dysuria or hematuria Musc: Denies: neck pain, back pain or extremity swelling Skin/Breast: Reports: new lesions (wound on right lower leg.); Denies: rash Neuro: Denies: headache(s), numbness in extremities or weakness in extremities PFSH ED PFSH: Medical History Adult hypothyroidism Benign hypertension CAD (coronary artery disease) Controlled diabetes mellitus without complication, without long-term current use of insulin Degenerative arthritis of hip DVT (deep venous thrombosis) Frequent PVCs SHIRA treated with BiPAP Severe obesity (BMI >= 40) Urine stream spraying Vitamin D deficiency Surgical History History of hernia repair Bilateral inguinal and umbilical Family History Mother , 80'S Cancer Other Heart disease Hypertension Social History Smoking and tobacco status: never smoked Second hand smoke exposure: No Smoking risk assessment/counseling performed?: No Alcohol intake: current Alcohol intake frequency: holidays/special occasions only Desire information about alcohol rehabilitation?: No Counseling given: No Desire information about substance/drug rehabilitation?: No Counseling given: No Adopted: No Caregiver/support person: No Lives independently: Yes Household members: spouse Housing: House Marital status: Number of children: 3 service: Yes branch: [employer] Current occupational status: retired Current occupational exposures/hazards: No History of recent travel: No Current gender identity: Male Physical Exam Const: COMMON NORMALS: no acute distress, patient oriented x3 and alert GENERAL APPEARANCE: cooperative and comfortable NUTRITIONAL APPEARANCE: obese HENMT: COMMON NORMALS: normocephalic HEAD & SCALP: normocephalic MOUTH: Normal oral and palatal mucosa present THROAT: posterior oropharynx normal and uvula midline Neck/C-Spine: COMMON NORMALS: supple GENERAL: Yes normal visual inspection Resp: COMMON NORMALS: normal respiratory effort, No retractions, No use of accessory muscles and clear to auscultation bilaterally AUSCULTATION: clear to auscultation bilaterally Cardio: COMMON NORMALS: regular rate, regular rhythm, S1 normal heart sound present, S2 normal heart sound present, No gallops present (Cardio), No clicks present (Cardio), No murmurs present (Cardio) and Peripheral pulses 2+ throughout RATE: regular rate RHYTHM: regular rhythm HEART SOUNDS: S1 normal heart sound present and S2 normal heart sound present PERIPHERAL PULSES: Peripheral pulses 2+ throughout GI: COMMON NORMALS: Normal to inspection, nondistended, normoactive bowel sounds present, Soft to palpation, non-tender and no masses PALPATION: Yes Soft to palpation : COMMON NORMALS: Yes no CVA tenderness BLADDER/KIDNEY EXAM: Yes no CVA tenderness Back/Pelvis: COMMON NORMALS: no CVA tenderness Extremity: NARRATIVE EXTREMITY EXAM: Right lower leg?1.5 cm linear open wound with tenderness, warmth and surrounding localized erythema. No visible streaking seen on right leg. Small amount of purulent and bloody drainage from wound. GENERAL: Yes normal exam except as noted and Yes edema (Bilateral lower extremity edema 2+ pitting.) Neuro: COMMON NORMALS: patient oriented x3 and moves all extremities SENSORIUM/ORIENTATION: Yes alert Skin: GENERAL SKIN EXAM: dry skin Course Vital Signs: Vital signs: Vital Signs Temperature 97.8 F 06/25/21 09:34 Pulse Rate 52 L 06/25/21 10:51 Respiratory Rate 17 06/25/21 10:51 Blood Pressure 152/85 06/25/21 10:51 Pulse Oximetry 93 06/25/21 10:51 MDM - Extremity (Nontraumatic) Medical Decision Making Patient is a 75-year-old male comes to the ED with for a wound on right lower leg. Past medical history of diabetes and CHF. Patient says approximately a week ago he cut his right lower leg on something in a bar and he was working on. He is unsure of what cut his leg. He had a small laceration on right lower leg that he put triple antibiotic ointment on it and bandaged it. Denies ever cleaning out wound. Wound does not been healing and is becoming more painful and draining blood and pus. Patient is afebrile and the rest of his vitals are stable. Exam shows a linear open leg wound on right lower leg, lateral aspect just superior to ankle. Wound is infected but there is no signs of any red streaking and no infection seems to be localized around wound. Patient was given a dose of Rocephin IM while here in the ED. Due to patient's medical history I am referring him to wound care clinic for follow-up and further evaluation and management of right lower leg wound. Patient was discharged home with a prescription for clindamycin. He was told case sealer will contact them next several days to set up an appointment with wound care clinic. Return to ED precautions given. Patient understood and agreed with plan. Discharge Plan Discharge Patient Disposition: Home Clinical Impression: Wound cellulitis Condition: Stable Prescriptions: New clindamycin HCl 150 mg capsule 300 mg PO QID 7 Days Qty: 56 0RF No Action cholecalciferol (vitamin D3) [Vitamin D3] 1,000 unit capsule 1,000 unit PO BID 0RF (DME) blood-glucose meter [Precision Xtra Monitor] Kit See Rx Instructions .ROUTE .MEDSUPPLY Qty: 1 0RF Rx Instructions: As directed lancets miscellaneous DAILY 0RF cyanocobalamin (vitamin B-12) 1 tab PO DAILY 0RF aspirin [Aspir-81] 81 mg tablet,delayed release (DR/EC) 81 mg PO DAILY 0RF lisinopril 20 mg tablet 10 mg PO DAILY Qty: 30 2RF coenzyme Q10 [Co Q-10] 30 mg capsule 30 mg PO DAILY Qty: 30 0RF Centrum Silver 400-250 mcg tablet,chewable 1 tab PO DAILY Qty: 30 0RF Advanced Probiotic 625 mg (10 billion cell) capsule PO 0RF zonisamide 100 mg capsule 100 mg PO BID Qty: 60 2RF levothyroxine 200 mcg tablet 200 mcg PO DAILY Qty: 30 2RF potassium chloride 20 mEq tablet,ER particles/crystals 20 meq PO DAILY Qty: 90 3RF nitroglycerin [Nitrostat] 0.4 mg tablet, sublingual 0.4 mg SUBLINGUAL Q5M PRN (Reason: chest pain) Qty: 30 0RF Rx Instructions: until response; do not exceed 3 doses per episode may substitute quantity metoprolol tartrate 25 mg tablet 25 mg PO BID Qty: 180 3RF amiodarone 200 mg tablet See Rx Instructions .ROUTE .COMPLEX Qty: 180 3RF Dose Instruction: TAKE ONE TABLET BY MOUTH TWICE DAILY Rx Instructions: TAKE ONE TABLET BY MOUTH TWICE DAILY atorvastatin 40 mg tablet 40 mg PO DAILY Qty: 90 3RF (DME) oxygen concentrator See Rx Instructions .Route .MEDSUPPLY Qty: 1 0RF Rx Instructions: As directed oxygen 2 liters into bipap nightly Trulicity 0.75 mg/0.5 mL pen injector 0.75 mg SUBCUT .weekly Qty: 6 0RF bumetanide 2 mg tablet 2 mg PO DIRECTED Qty: 90 3RF Rx Instructions: Alternate 2mg (1 tab) and 3mg (1.5 tabs) every other day clopidogrel 75 mg tablet See Rx Instructions .ROUTE .COMPLEX Qty: 90 3RF Dose Instruction: TAKE ONE TABLET BY MOUTH DAILY Rx Instructions: TAKE ONE TABLET BY MOUTH DAILY doxazosin 1 mg tablet See Rx Instructions .ROUTE .COMPLEX Qty: 180 3RF Dose Instruction: TAKE TWO TABLETS BY MOUTH DAILY Rx Instructions: TAKE TWO TABLETS BY MOUTH DAILY Percocet 5-325 mg tablet 1 tab PO Q8H PRN (Reason: pain) Qty: 5 0RF Discharge Orders: Discharge ED (Routine); Ordered 06/25/21 Ordered By: Vince Bonilla Referrals: Jayleen Flores, CORINNEC [Primary Care Provider] - Discharge Diet: Regular Discharge Activity: Increase activity as tolerated Patient Instructions: Wound Infection (DC), Acute Wounds (DC), Wound Care (General) Activity Restrictions/Additional Instructions: Follow-up with medical provider as directed. regional production manager only contacting you next several days to set up an appointment with wound care clinic. Take medications as prescribed. Return to the ER or your medical provider if condition worsens. Please read and understand discharge instructions. Thank you for choosing [facility] for your healthcare needs today. Please realize this is an emergency room and that we are providing you with a me dical screening exam and this may not be complete and all inclusive of all the testing and or work up that you may need to determine your ailment or severity of your illness. It is very important that you follow up as instructed or that you return to the Emergency Department should you have concerns or if your condition changes or worsens in any way. Coding Level of Care Code ED Bookkeeper Receptionist for [facility]oma Fwlaura Exam Comprehensive
[2021-06-25] MEDS: cefTRIAXone 1,000 MG in lidocaine 1% 2.1 ML 1 MG IM (10:05)
[2021-06-25 10:51] VITALS: BP 152/85; PULSE 52; RESP 17; O2SAT 93
--- NOTE | 2021-06-25 10:53 | PC.NURSE ---
Placed telfa gauze on wound over lower left leg and wrapped with an kristal wrap.
== END 2021-06-25 10:49 | disposition home or self-care (01) ==
PROVIDERS: Emergency Provider Physician Assistant; PCP Nurse Practitioner
DX: L03.115 Cellulitis of right lower limb (principal); Z79.82 Long term (current) use of aspirin; Z79.02 Long term (current) use of antithrombotics/antiplatelets; I25.10 Atherosclerotic heart disease of native coronary artery without angina pectoris; E11.9 Type 2 diabetes mellitus without complications; I11.0 Hypertensive heart disease with heart failure; I50.9 Heart failure, unspecified
CPT/HCPCS: 96372; 99283; J0696

== ENCOUNTER 2021-06-26 18:22 | Emergency (ER) | payer MEDICARE, OTHER, SELFPAY ==
[2021-06-26 18:30] VITALS: BP 163/87; PULSE 59; RESP 18; TEMP 36.8; O2SAT 97; BMI 42.7
--- NOTE | 2021-06-26 18:45 | ED_ITS ---
HPI - Fall General: Chief Complaint: Fall Stated Complaint: Lac LT leg Time Seen by Provider: 06/26/21 18:34 History of Present Illness: Patient sustained other skin tears right lower extremity today. Caught his right leg on a cabinet in the bathroom. Is having dependent edema consistent with diagnosis CHF. Patient has not been taking his Lasix because he says it binds him up in his bowels. Does take his potassium though. Balance problems been going on for months. Patient does have weeping edema. Denies any chest pain shortness of breath headache, head injury or other related problems. Associated symptoms-after fall: Denies abdominal pain, chest pain or headache(s) Review of Systems Narrative: History of chronic balance problems. Does see legal entity controller on a routine basis. Patient has not been taking water pill due to problems with bowels. Const: Denies: fever(s), chills or body aches Eyes: Denies: eye discomfort ENMT: Denies: throat pain Card: Reports: edema; Denies: chest pain Resp: Denies: dyspnea GI: Denies: abdominal pain, nausea or vomiting Skin/Breast: Reports: other (Skin tear right lower extremity); Denies: rash Neuro: Denies: headache(s) Psych: Denies: depression or suicidal ideation PFSH ED PFSH: Medical History Adult hypothyroidism Benign hypertension CAD (coronary artery disease) Controlled diabetes mellitus without complication, without long-term current use of insulin Degenerative arthritis of hip DVT (deep venous thrombosis) Frequent PVCs SHIRA treated with BiPAP Severe obesity (BMI >= 40) Urine stream spraying Vitamin D deficiency Surgical History History of hernia repair Bilateral inguinal and umbilical Family History Mother , 80'S Cancer Other Heart disease Hypertension Social History Smoking and tobacco status: never smoked Second hand smoke exposure: No Smoking risk assessment/counseling performed?: No Alcohol intake: current Alcohol intake frequency: holidays/special occasions only Desire information about alcohol rehabilitation?: No Counseling given: No Desire information about substance/drug rehabilitation?: No Counseling given: No Adopted: No Caregiver/support person: No Lives independently: Yes Household members: spouse Housing: House Marital status: Number of children: 3 service: Yes branch: [employer] Current occupational status: retired Current occupational exposures/hazards: No History of recent travel: No Current gender identity: Male Physical Exam Const: COMMON NORMALS: no acute distress, patient oriented x3 and alert HENMT: COMMON NORMALS: normocephalic and external ears normal HEAD & SCALP: normocephalic EXTERNAL EAR: Yes external ears normal Eye: COMMON NORMALS: EOMs intact bilaterally Neck/C-Spine: COMMON NORMALS: no JVD Resp: COMMON NORMALS: normal respiratory effort and No use of accessory muscles Cardio: COMMON NORMALS: no JVD GI: INSPECTION: Yes normal to inspection Extremity: COMMON NORMALS: normal to inspection and full ROM Neuro: COMMON NORMALS: patient oriented x3 SENSORIUM/ORIENTATION: Yes alert Psych: COMMON NORMALS: mental status grossly normal Skin: COMMON NORMALS: no rashes or lesions noted GENERAL SKIN EXAM: no rashes or lesions noted OTHER: Patient has a irregular long vertical skin tear to side of his right abdalla on the lateral aspect. Also has a small tear below it that is an irregular V-shaped. Then has a tear that happened last week that he was seen in the ER for yesterday was placed on antibiotics. Patient does not have any redness or erythema to the wounds. Does have seeping sanguinous fluid to his lower extremity consistent with CHF. Course Vital Signs: Vital signs: Vital Signs Temperature 98.6 F 06/26/21 19:18 Pulse Rate 61 06/26/21 19:18 Respiratory Rate 17 06/26/21 19:18 Blood Pressure 156/82 06/26/21 19:18 Pulse Oximetry 97 06/26/21 19:18 MDM - Fall Medical Decision Making Patient diagnosed with skin tear. Also with CHF and he does have weeping edema. Has not been taking water pill due to constipation from that. Went over plan to get patient back on water pill and also take care of his bowel problems. Patient is followed legal entity controller. Is change dressings daily on the wound. Continue take present antibiotics. Discharge Plan Discharge Patient Disposition: Home Clinical Impression: Skin tear, CHF (congestive heart failure), Edema Condition: Stable Prescriptions: New Colace 2-In-1 8.6-50 mg tablet 1 tab-cap PO BID Qty: 30 0RF No Action cholecalciferol (vitamin D3) [Vitamin D3] 1,000 unit capsule 1,000 unit PO BID 0RF (DME) blood-glucose meter [Precision Xtra Monitor] Kit See Rx Instructions .ROUTE .MEDSUPPLY Qty: 1 0RF Rx Instructions: As directed lancets miscellaneous DAILY 0RF cyanocobalamin (vitamin B-12) 1 tab PO DAILY 0RF aspirin [Aspir-81] 81 mg tablet,delayed release (DR/EC) 81 mg PO DAILY 0RF lisinopril 20 mg tablet 10 mg PO DAILY Qty: 30 2RF coenzyme Q10 [Co Q-10] 30 mg capsule 30 mg PO DAILY Qty: 30 0RF Centrum Silver 400-250 mcg tablet,chewable 1 tab PO DAILY Qty: 30 0RF Advanced Probiotic 625 mg (10 billion cell) capsule PO 0RF zonisamide 100 mg capsule 100 mg PO BID Qty: 60 2RF levothyroxine 200 mcg tablet 200 mcg PO DAILY Qty: 30 2RF potassium chloride 20 mEq tablet,ER particles/crystals 20 meq PO DAILY Qty: 90 3RF nitroglycerin [Nitrostat] 0.4 mg tablet, sublingual 0.4 mg SUBLINGUAL Q5M PRN (Reason: chest pain) Qty: 30 0RF Rx Instructions: until response; do not exceed 3 doses per episode may substitute quantity metoprolol tartrate 25 mg tablet 25 mg PO BID Qty: 180 3RF amiodarone 200 mg tablet See Rx Instructions .ROUTE .COMPLEX Qty: 180 3RF Dose Instruction: TAKE ONE TABLET BY MOUTH TWICE DAILY Rx Instructions: TAKE ONE TABLET BY MOUTH TWICE DAILY atorvastatin 40 mg tablet 40 mg PO DAILY Qty: 90 3RF (DME) oxygen concentrator See Rx Instructions .Route .MEDSUPPLY Qty: 1 0RF Rx Instructions: As directed oxygen 2 liters into bipap nightly Trulicity 0.75 mg/0.5 mL pen injector 0.75 mg SUBCUT .weekly Qty: 6 0RF bumetanide 2 mg tablet 2 mg PO DIRECTED Qty: 90 3RF Rx Instructions: Alternate 2mg (1 tab) and 3mg (1.5 tabs) every other day clopidogrel 75 mg tablet See Rx Instructions .ROUTE .COMPLEX Qty: 90 3RF Dose Instruction: TAKE ONE TABLET BY MOUTH DAILY Rx Instructions: TAKE ONE TABLET BY MOUTH DAILY doxazosin 1 mg tablet See Rx Instructions .ROUTE .COMPLEX Qty: 180 3RF Dose Instruction: TAKE TWO TABLETS BY MOUTH DAILY Rx Instructions: TAKE TWO TABLETS BY MOUTH DAILY clindamycin HCl 150 mg capsule 300 mg PO QID 7 Days Qty: 56 0RF Percocet 5-325 mg tablet 1 tab PO Q8H PRN (Reason: pain) Qty: 5 0RF Discharge Orders: Discharge ED (Routine); Ordered 06/26/21 Ordered By: Tyson Ortega Referrals: Jayleen Flores, CORINNEC [Primary Care Provider] - Discharge Diet: Usual diet Discharge Activity: Increase activity as tolerated Patient Instructions: Skin Tear (ED), Edema (ED) Activity Restrictions/Additional Instructions: Take your Lasix 80 mg daily for the next 3 to 4 days. Then decrease down to 40 mg daily. Continue take potassium. Change dressing on your skin tear daily. Keep feet elevated above the heart. Follow-up with a legal entity controller in the next 2 weeks. Coding Level of Care Code ED Child Center Assistant for Chioma Fwd Exam Comprehensive
[2021-06-26 19:16] VITALS: BP 156/82; PULSE 61; RESP 17; TEMP 37; O2SAT 97
[2021-06-26 19:18] VITALS: BP 156/82; PULSE 61; RESP 17; TEMP 37; O2SAT 97
--- NOTE | 2021-06-28 11:26 | DCPLANNER ---
Addendum entered by Candis Manley 07/21/21 14:02: Patient had an appointment scheduled for 07.01.21 with Wound Care - appointment was cancelled. Original Note: manager investment banking had message to schedule a follow up appointment for patient with wound care. manager investment banking called the Wound Care clinic, spoke with Muna, gave clinic patients information. A follow up appointment was scheduled for June at 10:[address] Montelongo. manager investment banking called and spoke with patients and gave her the appointment information.
== END 2021-06-26 19:05 | disposition home or self-care (01) ==
PROVIDERS: Emergency Provider Nurse Practitioner Family; PCP Nurse Practitioner
DX: S81.811A Laceration without foreign body, right lower leg, initial encounter (principal); I11.0 Hypertensive heart disease with heart failure; I50.9 Heart failure, unspecified; R60.9 Edema, unspecified; Z79.82 Long term (current) use of aspirin; Z79.02 Long term (current) use of antithrombotics/antiplatelets; I25.10 Atherosclerotic heart disease of native coronary artery without angina pectoris; E11.9 Type 2 diabetes mellitus without complications; W22.8XXA Striking against or struck by other objects, initial encounter
CPT/HCPCS: 99282

== ENCOUNTER → 2021-06-30 14:38 | Outpatient (BNVA) | payer MEDICARE, OTHER, SELFPAY | PROVIDERS: PCP Nurse Practitioner; Visit Provider Nurse Practitioner Family | DX: I50.9 Heart failure, unspecified (principal); I35.8 Other nonrheumatic aortic valve disorders; I11.0 Hypertensive heart disease with heart failure | CPT/HCPCS: 99214 ==

== ENCOUNTER → 2021-07-22 09:01 | Outpatient (BNVA) | payer MEDICARE, OTHER, SELFPAY | PROVIDERS: PCP Nurse Practitioner; Visit Provider Internal Medicine Pulmonary Disease | DX: R09.02 Hypoxemia (principal); R06.00 Dyspnea, unspecified; E03.9 Hypothyroidism, unspecified; G93.2 Benign intracranial hypertension; E11.9 Type 2 diabetes mellitus without complications; Z79.4 Long term (current) use of insulin; G47.33 Obstructive sleep apnea (adult) (pediatric); I49.3 Ventricular premature depolarization; I50.9 Heart failure, unspecified; I82.409 Acute embolism and thrombosis of unspecified deep veins of unspecified lower extremity | CPT/HCPCS: 99214 ==

== ENCOUNTER → 2021-07-26 10:25 | Outpatient (BNVA) | payer MEDICARE, OTHER, SELFPAY | PROVIDERS: PCP Nurse Practitioner; Visit Provider Nurse Practitioner | DX: E03.9 Hypothyroidism, unspecified (principal); E11.9 Type 2 diabetes mellitus without complications; R11.0 Nausea | CPT/HCPCS: 80053; 83036; 84443; 85025; 86705; 86706; 86709; 86803; 87340 ==

== ENCOUNTER → 2021-07-30 09:09 | Outpatient (BNVA) | payer MEDICARE, OTHER, SELFPAY | PROVIDERS: PCP Nurse Practitioner; Visit Provider Internal Medicine Cardiovascular Disease | DX: I11.0 Hypertensive heart disease with heart failure (principal); Z79.82 Long term (current) use of aspirin; I50.9 Heart failure, unspecified; Z51.81 Encounter for therapeutic drug level monitoring; Z79.899 Other long term (current) drug therapy; I82.409 Acute embolism and thrombosis of unspecified deep veins of unspecified lower extremity; I25.10 Atherosclerotic heart disease of native coronary artery without angina pectoris; I49.3 Ventricular premature depolarization; R00.2 Palpitations | CPT/HCPCS: 99214 ==

== ENCOUNTER → 2021-09-14 13:18 | Outpatient (BNVA) | payer MEDICARE, OTHER, SELFPAY | PROVIDERS: PCP Nurse Practitioner; Visit Provider Internal Medicine Pulmonary Disease | DX: G47.33 Obstructive sleep apnea (adult) (pediatric) (principal); R09.02 Hypoxemia; R06.00 Dyspnea, unspecified; I25.10 Atherosclerotic heart disease of native coronary artery without angina pectoris; I49.3 Ventricular premature depolarization; I50.9 Heart failure, unspecified; I82.409 Acute embolism and thrombosis of unspecified deep veins of unspecified lower extremity | CPT/HCPCS: 99214 ==

== ENCOUNTER 2021-11-10 10:19 | Outpatient (CLI) | payer MEDICARE, OTHER, SELFPAY ==
--- NOTE | 2021-11-10 12:36 | PFTS_ITS ---
Date of Study:11/10/21 Date of Dictation: 11/13/2021 MECHANICS: Postbronchodilator forced vital capacity (FVC) is reduced. Postbronchodilator forced expiratory volume in one second (FEV1) is normal. FEV1/FVC is normal. There is significant postbronchodilator response FLOW VOLUME LOOP: Normal . LUNG VOLUMES: Total lung capacity (TLC) is normal. Residual volume (RV) is increased suggestive of mild air trapping. DIFFUSING CAPACITY FOR CARBON MONOXIDE: Normal . INTERPRETATION: The spirometry showed restriction. There is significant postbronchodilator response. Lung volumes suggestive of mild air trapping. Gas transfer is normal. Clinical correlation recommended. MTDD
== END 2021-11-10 10:20 | disposition home or self-care (01) ==
PROVIDERS: PCP Nurse Practitioner; Visit Provider Internal Medicine Pulmonary Disease
DX: R06.00 Dyspnea, unspecified (principal)
CPT/HCPCS: 94060; 94618; 94726; 94729; J7614

== ENCOUNTER 2021-11-18 12:13 | Outpatient (CLI) | payer MEDICARE, OTHER, SELFPAY ==
--- NOTE | 2021-11-18 12:45 | USCV_ITS ---
Alexei Hoffmann Age: 76 Gender: M : 1945 Exam Date: 11/18/2021 12:29 Ordering Phys: Richard Watson MD Technologist: Robyn Morales [place]am [place] [facility] [place] Indication: PULMONARY ARTERY PRESSURE LV SYSTOLIC FX BP: / HR: 53 Rhythm: Sinus Technical Quality: Adequate MEASUREMENTS (Male / Female) Normal Values 2D ECHO LV Diastolic Diameter PLAX 6.2 cm 4.2 - 5.9 / 3.9 - 5.3 cm LV Systolic Diameter PLAX 3.7 cm LV Chamber Size 6.0 cm IVS Diastolic Thickness 1.1 cm 0.6 - 1.0 / 0.6 - 0.9 cm IVS Systolic Thickness 1.8 cm LVPW Diastolic Thickness 1.3 cm 0.6 - 1.0 / 0.6 - 0.9 cm LVPW Systolic Thickness 2.7 cm RV Chamber Size 4.5 cm LVOT Diameter 2.5 cm LV Ejection Fraction 2D Teich 70.3 % LV Ejection Fraction MOD 2C 60.7 % LV Ejection Fraction 2C AL 61.4 % LA Diameter 4.3 cm LA Width 3.3 cm LA Height 5.1 cm RA Width 3.4 cm RA Height 4.1 cm Aorta at Sinotubular Diameter 4.5 cm IVC Diameter 2.4 cm M-MODE Aortic Annulus Diameter 4.3 cm LA Ao Ratio MM 1.2 MV E Point Septal Separation 0.9 cm DOPPLER AV Peak Velocity 204.0 cm/s LVOT Peak Velocity 114.0 cm/s AV Area Cont Eq vti 2.9 cm squared AV Area Cont Eq pk 2.7 cm squared MV Area PHT 2.7 cm squared Mitral E to A Ratio 0.9 MV E' Velocity 49.5 cm/s Mitral E to MV E' Ratio 7.5 Mitral E to LV E' Lateral Ratio 9.3 Mitral E to LV E' Septal Ratio 6.3 TR Peak Velocity 234.2 cm/s TR Peak Gradient 21.9 mmHg TR Mean Velocity 147.3 cm/s TR Mean Gradient 11.0 mmHg TR Velocity Time Integral 56.3 cm TV Peak E Velocity 76.0 cm/s Right Atrial Pressure 3.0 mmHg Pulmonary Artery Systolic Pressu 24.9 mmHg PV Peak Velocity 87.0 cm/s RV Acceleration Time 0.1 s RV Ejection Time 0.4 s RV AcT/ET 0.4 FINDINGS Left Ventricle Left ventricle is grossly dilated. LV systolic function is grossly normal. Regional wall motion abnormalities cannot be assessed because of poor ultrasonic windows. Grade 1 diastolic dysfunction Right Ventricle Grossly normal Right Atrium Not well-visualized. Normal RA pressure Left Atrium Normal in size Mitral Valve Grossly normal Aortic Valve Arctic valve is thickened. Mild aortic stenosis. Mean gradient across the valve is 10 mmHg Tricuspid Valve Mild tricuspid regurgitation. Pulmonary artery systolic pressure is normal. Pulmonic Valve Not well-visualized Pericardium Grossly normal Aorta Dilated ascending aorta IVC CONCLUSIONS Technically limited quality echocardiogram because of poor ultrasonic windows. Left ventricle is dilated. LV systolic function is grossly normal. Grade 1 diastolic dysfunction Aortic valve is thickened. Mild aortic stenosis. Mild tricuspid regurgitation Dilated ascending aorta Accurate comparison with prior echocardiogram is not possible because of limited quality images Mejia Hurtado MD (Electronically Signed) Final Date: 02 December 2021 18:11 S
== END 2021-11-18 12:14 | disposition home or self-care (01) ==
LOC: RAD 12:13
PROVIDERS: PCP Nurse Practitioner; Visit Provider Internal Medicine Pulmonary Disease
DX: I28.1 Aneurysm of pulmonary artery (principal); I77.819 Aortic ectasia, unspecified site; I07.1 Rheumatic tricuspid insufficiency; R06.00 Dyspnea, unspecified; R09.02 Hypoxemia
CPT/HCPCS: 93306

== ENCOUNTER → 2021-11-22 10:54 | Outpatient (BNVA) | payer MEDICARE, OTHER, SELFPAY | PROVIDERS: PCP Nurse Practitioner; Visit Provider Internal Medicine Pulmonary Disease | DX: G47.33 Obstructive sleep apnea (adult) (pediatric); I25.10 Atherosclerotic heart disease of native coronary artery without angina pectoris; I49.3 Ventricular premature depolarization; I50.9 Heart failure, unspecified; I82.409 Acute embolism and thrombosis of unspecified deep veins of unspecified lower extremity; J45.909 Unspecified asthma, uncomplicated; R06.02 Shortness of breath | CPT/HCPCS: 82785; 86003; 99214 ==

== ENCOUNTER 2021-11-26 13:39 | Outpatient (CLI) | payer MEDICARE, OTHER, SELFPAY ==
--- NOTE | 2021-11-26 13:50 | XR_ITS ---
WS: [id number] Exam: XR knee RT 3V* [id number] Date/Time of Exam: 11/26/2021 1:52 PM Reason For Exam: M25.561 - Pain in right knee Comparison 09/10/2014. No fracture or dislocation noted. Very minimal degenerative change of the medial and lateral joint co mpartments. No significant joint effusion. Normal soft tissues. XR/XR knee RT 3V* [id number] IMPRESSION: 1. Minimal degenerative change. 2. No fracture or joint effusion.
== END 2021-11-26 13:40 | disposition home or self-care (01) ==
PROVIDERS: PCP Nurse Practitioner; Visit Provider Nurse Practitioner
DX: M25.561 Pain in right knee (principal)
CPT/HCPCS: 73562

== ENCOUNTER → 2021-12-03 10:28 | Outpatient (BNVA) | payer MEDICARE, OTHER, SELFPAY | PROVIDERS: PCP Nurse Practitioner; Visit Provider Orthopaedic Surgery | DX: M17.11 Unilateral primary osteoarthritis, right knee (principal) | CPT/HCPCS: 99203 ==

== ENCOUNTER 2021-12-10 11:03 | Outpatient (CLI) | payer MEDICARE, OTHER, SELFPAY ==
--- NOTE | 2021-12-10 11:00 | US_ITS ---
WS: [id number] INDICATION: Soft tissue swelling medial LEFT knee TECHNIQUE: Ultrasound soft tissue area of concern FINDINGS: Ultrasound soft tissue area of concern medial LEFT knee. No cystic or solid lesions. No amber picious findings in the area of concern. US/US soft tissue/extremity [id number] IMPRESSION: Normal soft tissue ultrasound.
== END 2021-12-10 11:04 | disposition home or self-care (01) ==
LOC: RAD 11:04
PROVIDERS: PCP Nurse Practitioner; Visit Provider Nurse Practitioner
DX: R22.42 Localized swelling, mass and lump, left lower limb (principal)
CPT/HCPCS: 76882

== ENCOUNTER → 2022-01-13 11:17 | Outpatient (BNVA) | payer MEDICARE, OTHER, SELFPAY | PROVIDERS: PCP Nurse Practitioner; Visit Provider Nurse Practitioner | DX: D64.9 Anemia, unspecified (principal); E03.9 Hypothyroidism, unspecified; E11.9 Type 2 diabetes mellitus without complications; I10 Essential (primary) hypertension | CPT/HCPCS: 80053; 80061; 82607; 83036; 83550; 84443 ==

== ENCOUNTER → 2022-02-15 14:07 | Outpatient (BNVA) | payer MEDICARE, OTHER, SELFPAY | PROVIDERS: PCP Nurse Practitioner; Visit Provider Internal Medicine Cardiovascular Disease | DX: I13.0 Hypertensive heart and chronic kidney disease with heart failure and stage 1 through stage 4 chronic kidney disease, or unspecified chronic kidney disease (principal); E11.22 Type 2 diabetes mellitus with diabetic chronic kidney disease; I50.30 Unspecified diastolic (congestive) heart failure; N18.9 Chronic kidney disease, unspecified; Z79.84 Long term (current) use of oral hypoglycemic drugs; I25.10 Atherosclerotic heart disease of native coronary artery without angina pectoris; I49.3 Ventricular premature depolarization; I82.409 Acute embolism and thrombosis of unspecified deep veins of unspecified lower extremity | CPT/HCPCS: 99214 ==

== ENCOUNTER → 2022-02-24 08:40 | Outpatient (BNVA) | payer MEDICARE, OTHER, SELFPAY | PROVIDERS: PCP Nurse Practitioner; Visit Provider Internal Medicine Pulmonary Disease | DX: R06.00 Dyspnea, unspecified (principal); G47.33 Obstructive sleep apnea (adult) (pediatric); I25.10 Atherosclerotic heart disease of native coronary artery without angina pectoris; I49.3 Ventricular premature depolarization; I50.9 Heart failure, unspecified; J45.909 Unspecified asthma, uncomplicated; I27.20 Pulmonary hypertension, unspecified; I82.509 Chronic embolism and thrombosis of unspecified deep veins of unspecified lower extremity; Z95.5 Presence of coronary angioplasty implant and graft; E66.9 Obesity, unspecified; Z68.41 Body mass index [BMI] 40.0-44.9, adult | CPT/HCPCS: 99214 ==

== ENCOUNTER 2022-04-05 08:41 | Outpatient (CLI) | payer MEDICARE, OTHER, SELFPAY ==
--- NOTE | 2022-04-05 09:15 | USCV_ITS ---
Alexei Hoffmann Age: 76 Gender: M : 1945 Exam Date: 04/05/2022 08:59 Ordering Phys: Richard Watson MD Technologist: Exam Location: [facility] [place] Indication: cad short of breath BP: 150 / 80 HR: 143 Rhythm: Sinus Technical Quality: Poor MEASUREMENTS (Male / Female) Normal Values 2D ECHO LV Diastolic Diameter PLAX 5.4 cm 4.2 - 5.9 / 3.9 - 5.3 cm LV Systolic Diameter PLAX 4.3 cm IVS Diastolic Thickness 1.5 cm 0.6 - 1.0 / 0.6 - 0.9 cm IVS Systolic Thickness 1.8 cm LVPW Diastolic Thickness 1.6 cm 0.6 - 1.0 / 0.6 - 0.9 cm LVPW Systolic Thickness 1.7 cm LVOT Diameter 2.7 cm LV Ejection Fraction 2D Teich 42.2 % LV Ejection Fraction MOD 2C 71.7 % LV Ejection Fraction 2C AL 71.5 % LA Diameter 4.6 cm Aorta at Sinotubular Diameter 3.8 cm IVC Diameter 2.1 cm M-MODE Aortic Annulus Diameter 4.2 cm LA Ao Ratio MM 1.1 MV E Point Septal Separation 1.2 cm DOPPLER AV Peak Velocity 213.0 cm/s LVOT Peak Velocity 99.0 cm/s AV Area Cont Eq vti 2.3 cm squared AV Area Cont Eq pk 2.6 cm squared MV Area PHT 5.0 cm squared Mitral E to A Ratio 0.9 MV E' Velocity 42.5 cm/s Mitral E to MV E' Ratio 6.5 Mitral E to LV E' Lateral Ratio 6.3 Mitral E to LV E' Septal Ratio 6.8 TR Peak Velocity 206.3 cm/s TR Peak Gradient 17.0 mmHg TV Peak E Velocity 82.0 cm/s Right Atrial Pressure 3.0 mmHg Pulmonary Artery Systolic Pressu 20.0 mmHg RV Acceleration Time 0.2 s FINDINGS Left Ventricle The examination is technically poor. Echo contrast was used. The left ventricular size and function are probably normal and the ejection fraction is likely about 55%. No obvious wall motion disturbances noted. Grade 1 diastolic dysfunction. Right Ventricle Normal right ventricular size and systolic function. Normal right ventricular systolic pressure. Right Atrium The right atrium is normal in size. Left Atrium Mildly increased left atrial size. Mitral Valve Mitral valve not well visualized. Aortic Valve Aortic valve not well visualized. Mild aortic valve calcification. Tricuspid Valve Structurally normal tricuspid valve. Pulmonic Valve Pulmonic valve not well visualized. Pericardium Normal pericardium without effusion. Aorta Aorta not well visualized. IVC Inferior vena cava not visualized. CONCLUSIONS The examination is technically poor. Echo contrast was used. The left ventricular size and function are probably normal and the ejection fraction is likely about 55%. No obvious wall motion disturbances noted. Grade 1 diastolic dysfunction. Mildly increased left atrial size. The previous echo dictated 06/28/2019 was similar in quality. The study was difficult. There has been no significant change. Dr. Ivan Win MD (Electronically Signed) Final Date: 05 April 2022 15:35 S
[2022-04-05] MEDS: perflutren protein-a microsphr 0.22 mg/mL SDV 3 mL IV (10:05)
== END 2022-04-05 08:42 | disposition home or self-care (01) ==
LOC: RAD 08:42
PROVIDERS: PCP Nurse Practitioner; Visit Provider Internal Medicine Pulmonary Disease
DX: I50.9 Heart failure, unspecified (principal); R60.0 Localized edema
CPT/HCPCS: C8929; Q9956

== ENCOUNTER 2022-04-21 10:27 | Outpatient (CLI) | payer MEDICARE, OTHER, SELFPAY | END 2022-04-21 10:28 | disposition home or self-care (01) | LOC: LAB 10:30 | PROVIDERS: PCP Nurse Practitioner; Visit Provider Internal Medicine Cardiovascular Disease | DX: I50.9 Heart failure, unspecified (principal); I25.10 Atherosclerotic heart disease of native coronary artery without angina pectoris; R06.00 Dyspnea, unspecified; I10 Essential (primary) hypertension | CPT/HCPCS: 36415 ==

== ENCOUNTER 2022-04-22 10:28 | Outpatient (CLI) | payer MEDICARE, OTHER, SELFPAY ==
[2022-04-22 11:29] LABS: Anion Gap 13.5 (5-19); Blood Urea Nitrogen 29 mg/dL (8-23); Calcium 8.7 mg/dL (8.5-10.5); Carbon Dioxide 26 mmol/L (22-29); Chloride 103 mmol/L (98-107); Glucose 92 mg/dL (65-115); Magnesium 2.1 mg/dL (1.7-2.3); NT Pro B Type Natriuretic Pept 44 pg/mL (0-450); Osmolality Calculated 291 mOsm/kg (285-295); Potassium 4.5 mmol/L (3.5-5.1); Sodium 138 mmol/L (136-145)
== END 2022-04-22 10:29 | disposition home or self-care (01) ==
LOC: LAB 10:37
PROVIDERS: PCP Nurse Practitioner; Visit Provider Internal Medicine Cardiovascular Disease
DX: I10 Essential (primary) hypertension (principal); I25.10 Atherosclerotic heart disease of native coronary artery without angina pectoris; I50.9 Heart failure, unspecified; R06.00 Dyspnea, unspecified
CPT/HCPCS: 36415; 80048; 83735; 83880

== ENCOUNTER → 2022-05-09 14:05 | Outpatient (BNVA) | payer MEDICARE, OTHER, SELFPAY | PROVIDERS: PCP Nurse Practitioner; Visit Provider Nurse Practitioner | DX: I10 Essential (primary) hypertension (principal); E11.9 Type 2 diabetes mellitus without complications | CPT/HCPCS: 80053; 80061; 83036 ==

== ENCOUNTER → 2022-07-25 08:05 | Outpatient (BNVA) | payer MEDICARE, OTHER, SELFPAY | PROVIDERS: PCP Nurse Practitioner; Visit Provider Nurse Practitioner | DX: I10 Essential (primary) hypertension (principal); E11.9 Type 2 diabetes mellitus without complications; N18.9 Chronic kidney disease, unspecified; I25.10 Atherosclerotic heart disease of native coronary artery without angina pectoris; I50.9 Heart failure, unspecified; E87.5 Hyperkalemia | CPT/HCPCS: 80053; 80061; 83036; 83880 ==

== ENCOUNTER 2022-07-29 13:32 | Inpatient (IN) | payer MEDICARE, OTHER, SELFPAY ==
[2022-07-29 13:54] VITALS: BP 160/79; PULSE 54; RESP 20; TEMP 36.6; O2SAT 95; BMI 46.5
--- NOTE | 2022-07-29 14:06 | XR_ITS ---
WS: [id number] Exam: XR chest 1V portable [id number] Date/Time of Exam: 07/29/2022 2:06 PM Reason For Exam: volume overload Comparison 01/25/2021. The lungs are clear and fully expanded. Heart size top limits normal. No pleural effusions. Regional bony elements are intact. XR/XR chest 1V portable [id number] IMPRESSION: 1. No acute cardiopulmonary finding.
[2022-07-29 14:48] LABS: Basophils % 0.4 %; Eosinophils # 0.3 10^3/uL (0.0-0.8); Eosinophils % 5.3 %; Hemoglobin 11.8 g/dL (11.7-16.6); Lymphocytes % 20.2 %; Mean Corpuscular HGB Conc 30.3 g/dL (30.0-36.0); Mean Corpuscular Hemoglobin 32.8 pg (28.0-34.0); Mean Corpuscular Volume 108.3 fl (80-94); Mean Platelet Volume 10.2 fL (7.4-10.4); Monocytes # 0.5 10^3/uL (0.2-0.9); Monocytes % 10.3 %; Neutrophils # 3.08 10^3/uL (1.8-7.7); Neutrophils % 63.4 %; Nucleated Red Blood Cells % 0 %; Platelet Count 188 10^3/cmm (130-400); Red Cell Distribution Width 15.6 % (12.1-15.1); White Blood Count 4.9 10^3/uL (4.0-10.0)
[2022-07-29 15:17] LABS: Troponin(5th) Baseline 18 ng/L (0-15)
[2022-07-29 15:20] LABS: Alanine Aminotransferase 16 U/L (0-41); Albumin Level 3.8 g/dL (3.5-5.2); Alkaline Phosphatase 125 U/L (40-130); Anion Gap 14.6 (5-19); Aspartate Amino Transferase 21 U/L (0-40); Blood Urea Nitrogen 31 mg/dL (8-23); Calcium 8.2 mg/dL (8.5-10.5); Carbon Dioxide 25 mmol/L (22-29); Chloride 109 mmol/L (98-107); Glucose 117 mg/dL (65-115); NT Pro B Type Natriuretic Pept 121 pg/mL (0-450); Osmolality Calculated 306 mOsm/kg (285-295); Potassium 4.6 mmol/L (3.5-5.1); Sodium 144 mmol/L (136-145); Total Bilirubin 0.5 mg/dL (0.15-1.2); Total Protein 6.8 g/dL (6.6-8.7)
[2022-07-29 15:21] LABS: Creatinine Clr Calc Pharmacy 82.0794
--- NOTE | 2022-07-29 16:06 | ECG_ITS ---
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 Measurements Intervals [place] Rate: 56 P: 18 SC: 253 QRS: -63 QRSD: 171 T: 29 QT: 483 QTc: 470 Interpretive Statements SINUS BRADYCARDIA WITH FIRST DEGREE AV BLOCK RIGHT BUNDLE BRANCH BLOCK [120+ ms QRS DURATION, UPRIGHT V1, 40+ ms S IN I/aVL/V4/V5/V6] LEFT ANTERIOR FASCICULAR BLOCK [QRS AXIS <= -45, QR IN I, RS IN II] POSSIBLE ANTERIOR MYOCARDIAL INFARCTION , OF INDETERMINATE AGE [30 ms Q WAVE IN V3/V4, OR R < 0.2 mV IN V4] Compared to ECG 04/18/2021 17:25:25 Right bundle-branch block now present Myocardial infarct finding still present Electronically Signed On 07-30-2022 7:13:29 CDT by Mejia Hurtado M.D. [id number]
--- NOTE | 2022-07-29 16:22 | ED_ITS ---
HPI - Extremity Problem General: Chief complaint: Extremity Problem,Nontraumatic Stated complaint: legs swelling Time Seen by Provider: 07/29/22 16:00 History of Present Illness: Mr. Hoffmann is a 76-year-old gentleman with history of CAD, DVT, lower extremity edema presenting to the emergency department for marked weight gain and lower extremity edema with acute change since last night. He reports being at his baseline health and diet. Last night he started noticing lower extremity swelling worse than baseline despite his medication. This morning he noticed significant increase as well as tightness in the legs which cause pain. Denies associated abdominal pain or change in baseline urinary difficulties. No shortness of breath worse than baseline or chest pain. Patient reports 18 pound weight gain since he first noticed symptoms. No other specific changes in health, exacerbating, or alleviating factors identified. Onset (ago): day(s) Pain Consistency: constant Location: left, right and lower extremity Radiation: none Exacerbating factors: walking, exertion and palpation Associated symptoms: Reports no associated symptoms Review of Systems General: Reports: 10 or more systems reviewed and unremarkable except in HPI and below PFSH ED PFSH: Medical History Adult hypothyroidism Benign hypertension CAD (coronary artery disease) CKD (chronic kidney disease) Controlled diabetes mellitus without complication, without long-term current use of insulin Degenerative arthritis of hip DVT (deep venous thrombosis) Erectile dysfunction Frequent PVCs Mass of left lower extremity SHIRA treated with BiPAP Severe obesity (BMI >= 40) Urine stream spraying Vitamin D deficiency Surgical History History of hernia repair Bilateral inguinal and umbilical History of knee surgery TORN MINISCUS IN BOTH KNEES History of tonsillectomy Family History Mother , 80'S Cancer Other Heart disease Hypertension Social History Smoking and tobacco status: never smoked Second hand smoke exposure: No Smoking risk assessment/counseling performed?: No Alcohol intake: current Alcohol intake frequency: holidays/special occasions only Desire information about alcohol rehabilitation?: No Counseling given: No Desire information about substance/drug rehabilitation?: No Counseling given: No Adopted: No Caregiver/support person: No Lives independently: Yes Household members: spouse Housing: House Marital status: Number of children: 3 service: Yes branch: [employer] Current occupational status: retired Current occupational exposures/hazards: No Current gender identity: Male Physical Exam Const: COMMON NORMALS: alert GENERAL APPEARANCE: cooperative and well developed HENMT: COMMON NORMALS: normocephalic and atraumatic HEAD & SCALP: normocephalic and atraumatic Eye: COMMON NORMALS: conjunctivae normal CONJUNCTIVA: Yes conjunctivae normal SCLERA: sclerae normal Neck/C-Spine: COMMON NORMALS: supple GENERAL: Yes trachea midline Resp: COMMON NORMALS: normal respiratory effort EFFORT & INSPECTION: Yes able to speak in complete sentences Cardio: COMMON NORMALS: regular rate and regular rhythm RATE: regular rate RHYTHM: regular rhythm GI: COMMON NORMALS: Soft to palpation PALPATION: Yes Soft to palpation and No Tenderness to palpation present (GI) Extremity: GENERAL: Yes normal exam except as noted and Yes edema Neuro: COMMON NORMALS: moves all extremities SENSORIUM/ORIENTATION: Yes alert and No Orientation impaired Psych: COMMON NORMALS: mental status grossly normal and Normal thought process present THOUGHT PROCESS: Normal thought process present Course Vital Signs: Vital signs: Vital Signs Temperature 97.8 F 08/03/22 14:08 Pulse Rate 55 L 08/03/22 14:08 Respiratory Rate 18 08/03/22 14:08 Blood Pressure 154/81 08/03/22 14:08 Pulse Oximetry 94 08/03/22 14:08 Oxygen Delivery Me thod Room Air 08/03/22 12:00 MDM - Extremity (Nontraumatic) Medical Decision Making 76-year-old male presenting with leg swelling and significant weight gain in a relatively short period of time despite outpatient medication use. Patient is nontoxic on clinical exam. Exam as above. EKG demonstrates sinus bradycardia with first-degree AV block, nonspecific ST segment abnormalities, right bundle-branch block, no STEMI. Labs with no leukocytosis, normal hemoglobin and platelet count. Metabolic panel with mildly increased creatinine. Negative range 2-hour delta troponin. Chest x-ray with no lobar consolidation or pneumothorax. No DVT on ultrasound. Most likely etiology of patient's symptoms is heart failure exacerbation that has failed outpatient management with acute decompensation. The results of ED evaluation were discussed with the patient including plan for admission due to requirement for level of care not available if discharged to prevent significant worsening/deterioration. Patient agreeable with plan. Discussed with hospitalist service who was agreeable to admit patient. Medical Records I reviewed the patient's medical records. Lab Data I reviewed the patient's lab results. 08/02/22 04:57 08/03/22 09:57 Radiology Impressions Chest X-Ray 07/29/22 14:06 IMPRESSION: 1. No acute cardiopulmonary finding. Venous Duplex 07/29/22 16:36 IMPRESSION: No sonographic evidence of deep vein thrombosis. Laboratory Results WBC 4.9 10^3/uL (4.0-10.0) 07/29/22 14: RBC 3.60 10^6/uL (4.1-5.3) L 07/29/22 14: Hgb 11.8 g/dL (11.7-16.6) 07/29/22 14: Hct 39.0 % (42.0-52.0) L 07/29/22 14: MCV 108.3 fl (80-94) H 07/29/22 14:23 MCH 32.8 pg (28.0-34.0) 07/29/22 14: MCHC 30.3 g/dL (30.0-36.0) 07/29/22 14: RDW 15.6 % (12.1-15.1) H 07/29/22 14:23 Plt Count 188 10^3/cmm (130-400) 07/29/22 14: MPV 10.2 fL (7.4-10.4) 07/29/22 14:23 Neut % (Auto) 63.4 % 07/29/22 14:23 Lymph % (Auto) 20.2 % 07/29/22 14:23 [place] % (Auto) 10.3 % 07/29/22 14:23 Eos % (Auto) 5.3 % 07/29/22 14:23 Baso % (Auto) 0.4 % 07/29/22 14: Neut # (Auto) 3.08 10^3/uL (1.8-7.7) 07/29/22 14:23 Lymph # (Auto) 1.0 10^3/uL (0.8-4.8) 07/29/22 14:23 [place] # (Auto) 0.5 10^3/uL (0.2-0.9) 07/29/22 14:23 Eos # (Auto) 0.3 10^3/uL (0.0-0.8) 07/29/22 14:23 Baso # (Auto) 0.0 10^3/uL (0.0-0.1) 07/29/22 14:23 Nucleated RBC % (auto) 0 % 07/29/22 14:23 Nucleated RBCs # 0.0 /100WBC 07/29/22 14:23 Sodium 144 mmol/L (136-145) 07/29/22 14:23 Potassium 4.6 mmol/L (3.5-5.1) 07/29/22 14:23 Chloride 109 mmol/L (98-107) H 07/29/22 14:23 Carbon Dioxide 25 mmol/L (22-29) 07/29/22 14:23 Anion Gap 14.6 (5-19) 07/29/22 14:23 BUN 31 mg/dL (8-23) H 07/29/22 14:23 Creatinine 1.3 mg/dL (0.7-1.2) H 07/29/22 14:23 GFR Calculation Not Reportable 07/29/22 14:23 Glucose 117 mg/dL (65-115) H 07/29/22 14:23 Calculated Osmolality 306 mOsm/kg (285-295) H 07/29/22 14:23 Calcium 8.2 mg/dL (8.5-10.5) L 07/29/22 14:23 Total Bilirubin 0.5 mg/dL (0.15-1.2) 07/29/22 14:23 AST 21 U/L (0-40) 07/29/22 14:23 ALT 16 U/L (0-41) 07/29/22 14:23 Alkaline Phosphatase 125 U/L (40-130) 07/29/22 14:23 Troponin T Baseline 18 ng/L (0-15) H 07/29/22 14:23 Troponin T 120 Minute 17.45 ng/L (0-15) H 07/29/22 16:31 Delta Troponin T -0.55 ABS# (0-10) L 07/29/22 16:31 NT-Pro-B Natriuret Pep 121 pg/mL (0-450) 07/29/22 14:23 Total Protein 6.8 g/dL (6.6-8.7) 07/29/22 14:23 Albumin 3.8 g/dL (3.5-5.2) 07/29/22 14:23 Globulin 3.0 g/dL (1.3-4.6) 07/29/22 14:23 Discharge Plan Discharge Patient Disposition: Placed in Observation Admit Provider: Helio Ramsay Clinical Impression: Leg edema, Acute exacerbation of CHF (congestive heart failure) Discharge Diet: Usual diet Discharge Activity: Resume usual activity Coding Level of Care Code ED Product Builder for Chioma Stein
--- NOTE | 2022-07-29 16:36 | USR_ITS ---
PROCEDURE INFORMATION: Exam: US Duplex Lower Extremity Veins, Bilateral Exam date and time: 07/29/2022 5:06 PM Age: 76 years old Clinical indication: Pain; Leg, lower; Bilateral; Additional info: Lower extremity edema, pain TECHNIQUE: Imaging protocol: Real-time duplex ultrasound of the bilateral extremities with 2-D pelletier scale, color Doppler flow and spectral waveform analysis including responses to compression and other maneuvers (when performed) with image documentation. Complete exam focused on the lower extremity veins. COMPARISON: US soft tissue/extremity [id number] 12/10/2021 11:12 AM FINDINGS: Right deep veins: Unremarkable. The common femoral, femoral, proximal profunda femoral, popliteal, posterior tibial and peroneal veins are patent without thrombus. Normal Doppler waveforms. Normal compressibility and/or augmentation response. Right superficial veins: Saphenofemoral junction is patent without thrombus. Left deep veins: Unremarkable. The common femoral, femoral, proximal profunda femoral, popliteal, posterior tibial and peroneal veins are patent without thrombus. Normal Doppler waveforms. Normal compressibility and/or augmentation response. Left superficial veins: Saphenofemoral junction is patent without thrombus. Soft tissues: Bilateral subcutaneous edema. US/[place] [id number] IMPRESSION: No sonographic evidence of deep vein thrombosis.
[2022-07-29 17:09] LABS: Troponin 5 2HR 17.45 ng/L (0-15)
[2022-07-29 17:17] LABS: Troponin 5 2HR Delta -0.55 ABS# (0-10)
--- NOTE | 2022-07-29 18:35 | P.HP_ITS ---
Providers/Chief Complaint Primary Care Provider: GOLDIE Harvey Chief Complaint: legs swelling History of Present Illness Alexei Hoffmann is a 76 year old male PMHx of HTN, HLD, Hypothyroidism, DM-2 , family history of CAD, SHIRA on BiPAP and was diagnosed with left popliteal vein DVT in Jan 2016. F/u venous duplexes with persistent non occlusive DVT in left popliteal vein and peroneal trunk. He was started on amiodarone for frequent PVC's with drop in LV function came in today after he started experiencing worse shira b/l lower extremity swelling as well as associated 18 pounds weight gain in the few days.denied any chest pain ,any significant sob, palpitation,any major diet change. Xray chest : No acute findings, lower extremity Doppler vein :negative for DVT. pertinent labs: WBC :9 H&H:11/39 , PLT: 188 , NA:144 K : 4.6 BUN/SCR: 31/1.3 AST,ALT,ALP : Unremarkable, troponin trend :Unremarkable. Medications/Allergies Home Medications Medication Instructions Recorded Confirmed Last Taken Type aspirin 81 mg tablet,delayed 81 mg PO DAILY 05/06/19 07/29/22 Unknown History release (Aspir-) blood-glucose meter (Precision #1 ea 05/06/19 07/29/22 Unknown History Xtra Monitor) cyanocobalamin (vitamin B-12) 1 tab PO DAILY 05/06/19 07/29/22 12/22/20 History [Vitamin B-12] lancets [FreeStyle Lancets] miscellaneous DAILY 05/06/19 07/29/22 Unknown History metoprolol tartrate 25 mg tablet 25 mg PO BID #180 tabs 06/19/20 07/29/22 12/22/20 Rx coenzyme Q10 30 mg capsule (Co 30 mg PO DAILY #30 caps 12/14/20 07/29/22 12/22/20 Rx Q-10) multivit with min-folic 1 tab PO DAILY #30 tabs 12/14/20 07/29/22 12/22/20 Rx acid-lutein 400 mcg-250 mcg chewable tablet (Centrum Silver) oxygen concentrator #1 ea 02/08/21 07/29/22 Unknown Rx bumetanide 2 mg tablet 2 mg PO DIRECTED PRN 07/30/21 07/29/22 Unknown History cholecalciferol (vitamin D3) 25 1,000 unit PO DAILY 07/30/21 07/29/22 Unknown History mcg (1,000 unit) capsule (Vitamin D3) polyethylene glycol 3350 17 gram 17 g PO DAILY PRN 07/30/21 07/29/22 Unknown History oral powder packet (Miralax) albuterol sulfate 90 mcg/actuation 2 puff inhalation Q6H PRN 11/22/21 07/29/22 Unknown Rx aerosol inhaler shortness of breath or wheezing #8.5 grams atorvastatin 40 mg tablet 40 mg PO DAILY #90 tabs 12/30/21 07/29/22 Unknown Rx potassium chloride 20 mEq 20 meq PO DAILY #90 tabs 01/06/22 07/29/22 Unknown Rx tablet,extended release(part/cryst) dulaglutide 0.75 mg/0.5 mL 0.75 mg (0.5 mL) SUBCUT .weekly #6 02/03/22 07/29/22 Unknown Rx subcutaneous pen injector mL (Trulicity) levothyroxine 200 mcg tablet 200 mcg PO DAILY #90 tabs 02/03/22 07/29/22 Unknown Rx nitroglycerin 0.4 mg sublingual 0.4 mg sublingual Q5M PRN chest 02/15/22 07/29/22 Unknown Rx tablet (Nitrostat) pain #25 tabs sacubitril 49 mg-valsartan 51 mg 1 tab PO BID #60 tabs 02/15/22 07/29/22 Unknown Rx tablet (Entresto) fluticasone 100 mcg-salmeterol 50 1 inh inhalation BID #60 ea 02/24/22 07/29/22 Unknown Rx mcg/dose blistr powdr for inhalation (Advair Diskus) amiodarone 200 mg tablet 200 mg PO DAILY #90 tabs 03/28/22 07/29/22 Unknown Rx amlodipine 5 mg tablet 5 mg PO DAILY #90 tabs 05/17/22 07/29/22 Unknown Rx clopidogrel 75 mg tablet See Rx Instructions .Route 06/13/22 07/29/22 Unknown Rx .COMPLEX #90 tabs doxazosin 1 mg tablet See Rx Instructions .Route 06/20/22 07/29/22 Unknown Rx .COMPLEX #180 tabs Allergies Allergy/AdvReac Type Severity Reaction Status Date / Time No Known Allergies Allergy Verified 07/29/22 13:01 PFSH Acute PFSH: Medical History Adult hypothyroidism Benign hypertension CAD (coronary artery disease) CKD (chronic kidney disease) Controlled diabetes mellitus without complication, without long-term current use of insulin Degenerative arthritis of hip DVT (deep venous thrombosis) Erectile dysfunction Frequent PVCs Mass of left lower extremity SHIRA treated with BiPAP Severe obesity (BMI >= 40) Urine stream spraying Vitamin D deficiency Surgical History History of hernia repair Bilateral inguinal and umbilical History of knee surgery TORN MINISCUS IN BOTH KNEES History of tonsillectomy Family History Mother , 80'S Cancer Other Heart disease Hypertension Social History Smoking and tobacco status: never smoked Second hand smoke exposure: No Smoking risk assessment/counseling performed?: No Alcohol intake: current Alcohol intake frequency: holidays/special occasions only Desire information about alcohol rehabilitation?: No Counseling given: No Desire information about substance/drug rehabilitation?: No Counseling given: No Adopted: No Caregiver/support person: No Lives independently: Yes Household members: spouse Housing: House Marital status: Number of children: 3 service: Yes branch: [employer] Current occupational status: retired Current occupational exposures/hazards: No Current gender identity: Male Vitals/I&O/Wt Last Vital Signs Temp 97.9 F 07/29/22 13:54 Pulse 54 L 07/29/22 13:54 Resp 20 H 07/29/22 13:54 BP 160/79 07/29/22 13:54 Pulse Ox 95 07/29/22 13:54 O2 Del Method 07/29/22 13:54 Weight last 48 hrs Weight 168.736 kg Data 07/29/22 14:23 07/29/22 14:23 A&P Assessment and plan (1) Leg edema: (2) Acute exacerbation of CHF (congestive heart failure): (3) CKD (chronic kidney disease): Qualifiers: Chronic kidney disease stage: unspecified stage Qualified Code(s): N18.9 - Chronic kidney disease, unspecified (4) Benign hypertension: (5) Controlled diabetes mellitus without complication, without long-term current use of insulin: Qualifiers: Diabetes mellitus type: type 2 Qualified Code(s): E11.9 - Type 2 diabetes mellitus without complications (6) Adult hypothyroidism: (7) CAD (coronary artery disease): Qualifiers: Coronary Disease-Associated Artery/Lesion type: tang[place]naq artery [place] vs. transplanted heart: tangirnaq heart Associated angina: without angina Qualified Code(s): I25.10 - Atherosclerotic heart disease of [place]q coronary artery without angina pectoris (8) DVT (deep venous thrombosis): (9) SHIRA treated with BiPAP: Joaquin Hoffmann is a 76 year old male PMHx of HTN, HLD, Hypothyroidism, DM-2 , family history of CAD, SHIRA on BiPAP and was diagnosed with left popliteal vein DVT in Jan 2016. F/u venous duplexes with persistent non occlusive DVT in left popliteal vein and peroneal trunk. He was started on amiodarone for frequent PVC's with drop in LV function came in today after he started experiencing worsening b/l lower extremity swelling as well as associated 18 pounds weight gain in the few days.denied any chest pain ,any significant sob, palpitation,any major diet change. Xray chest : No acute findings, lower extremity Doppler vein :negative for DVT. Assessment : Decompansted HFpEF: Continue bumix 2mg i.v q8h most recent 2 d echo results reviewed monitor I/O Monitor Electrolytes telemetry monitoring H/O HTN: Continue entresto Hypothyroidism: Continue levothyroxine 200 mcg po daily DM-2 : LDSSI, Monitor FSG, CKD Stage 3 : SCR is at baseline Monitor BMP SHIRA on BiPAP: H/O DVT: Code Status : Full code dvt ppx : on lovenox Attestations Medical Necessity Statement*: patient needs to be in hospital for the management of H/F nned for I.V Diuresis. Anticipated LOS Greater then 2 midnights. Coding Level of Care Code 15374 Diagnoses Leg edema R60.0 Acute exacerbation of CHF (congestive heart failure) I50.9 CKD (chronic kidney disease) N18.9 Chronic kidney disease stage: unspecified stage Benign hypertension I10 Controlled diabetes mellitus without complication, without long-term current use of insulin E11.9 Diabetes mellitus type: type 2 Adult hypothyroidism E03.9 CAD (coronary artery disease) I25.10 Coronary Disease-Associated Artery/Lesion type: tang[place]q artery [place] vs. transplanted heart: tangirnaq heart Associated angina: without angina DVT (deep venous thrombosis) I82.409 SHIRA treated with BiPAP G47.33
--- NOTE | 2022-07-29 19:07 | PC.NURSE ---
REPORT GIVEN TO KAILYN GUTIERREZ assumed care
[2022-07-29 19:28] VITALS: BP 151/106; PULSE 60; RESP 20; TEMP 36.7; O2SAT 94
--- NOTE | 2022-07-29 19:49 | PC.NURSE ---
Report received from Margaret Andino RN. Pt in room, IV intact, alert and oriented x4.
--- NOTE | 2022-07-29 19:58 | PC.NURSE ---
PT IS HERE FOR LOWER EXTREMITY EDEMA - DVT U/S IS NEGATIVE; HOWEVER, LEGS ARE TOO SWOLLEN FOR SCDS TO BE APPLIED.
[2022-07-29 19:59] VITALS: BP 151/106; PULSE 60; RESP 20; TEMP 36.7; O2SAT 94
[2022-07-29 20:00] VITALS: BP 147/76; PULSE 57; RESP 16; TEMP 36.8; O2SAT 95
--- NOTE | 2022-07-29 20:06 | ECG_ITS ---
[facility] Test Date: 2022-07-30 Pat Name: Alexei Hoffmann Department: Room: 258 Gender: Male It Consultant: : 1945 Requested By: Se Angulo Order Number: [id number] Farnaz MD: Mejia Hurtado M.D. Measurements Intervals [place] Rate: 65 P: 59 WI: 259 QRS: -59 QRSD: 110 T: 0 QT: 214 QTc: 222 Interpretive Statements SINUS RHYTHM WITH FIRST DEGREE AV BLOCK LOW QRS VOLTAGE IN PRECORDIAL LEADS [QRS DEFLECTION < 1.0 mV IN CHEST LEADS] LEFT ANTERIOR FASCICULAR BLOCK [QRS AXIS <= -45, QR IN I, RS IN II] POSSIBLE ANTERIOR MYOCARDIAL INFARCTION , PROBABLY OLD [30 ms Q WAVE IN V3/V4, OR R < 0.2 mV IN V4] TYPE 3 BRUGADA PATTERN (NON-DIAGNOSTIC) [COVED/SADDLEBACK ST ELEVATION > 0.1mV IN 2 OF V1-3] Compared to ECG 07/29/2022 17:42:53 Low QRS voltage now present Right bundle-branch block no longer present Myocardial infarct finding still present Electronically Signed On 07-30-2022 7:13:06 CDT by Mejia Hurtado M.D. [id number]
[2022-07-29] MEDS: bumetanide 0.25 mg/mL SDV 10 mL 2 MG IVP (20:24)
[2022-07-29 20:42] LABS: Glucose Point of Care 124 mg/dL (70-110)
[2022-07-29 23:00] VITALS: PULSE 59
[2022-07-30] VITALS (10 sets, daily range): BP systolic 105–156; BP diastolic 51–70; PULSE 50–70; RESP 16–20; TEMP 36.6–36.8; O2SAT 90–94
[2022-07-30] MEDS: bumetanide 0.25 mg/mL SDV 10 mL 2 MG IVP ×3 (03:52→19:28)
[2022-07-30 03:59] LABS: Basophils % 0.2 %; Eosinophils # 0.2 10^3/uL (0.0-0.8); Eosinophils % 4.2 %; Hematocrit 35.1 % (42.0-52.0); Hemoglobin 11.1 g/dL (11.7-16.6); Lymphocytes # 0.9 10^3/uL (0.8-4.8); Lymphocytes % 16.8 %; Mean Corpuscular HGB Conc 31.6 g/dL (30.0-36.0); Mean Corpuscular Hemoglobin 33.4 pg (28.0-34.0); Mean Corpuscular Volume 105.7 fl (80-94); Mean Platelet Volume 10.3 fL (7.4-10.4); Monocytes # 0.6 10^3/uL (0.2-0.9); Monocytes % 11.7 %; Neutrophils # 3.54 10^3/uL (1.8-7.7); Neutrophils % 66.7 %; Nucleated Red Blood Cells % 0.4 %; Platelet Count 173 10^3/cmm (130-400); Red Blood Count 3.32 10^6/uL (4.1-5.3); Red Cell Distribution Width 15.6 % (12.1-15.1); White Blood Count 5.3 10^3/uL (4.0-10.0)
--- NOTE | 2022-07-30 04:00 | ECG_ITS ---
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: : 1945 Requested By: Se Angulo Order Number: [id number] Reading MD: Huey Valentine Measurements Intervals [place] Rate: 60 P: 56 OR: 230 QRS: -58 QRSD: 114 T: 0 QT: 221 QTc: 221 Interpretive Statements SINUS RHYTHM WITH FIRST DEGREE AV BLOCK SINUS BRADYCARDIA WITH FIRST DEGREE AV BLOCK RIGHT BUNDLE BRANCH BLOCK [120+ ms QRS DURATION, UPRIGHT V1, 40+ ms S IN I/aVL/V4/V5/V6] LEFT ANTERIOR FASCICULAR BLOCK [QRS AXIS <= -45, QR IN I, RS IN II] POSSIBLE ANTERIOR MYOCARDIAL INFARCTION , OF INDETERMINATE AGE [30 ms Q WAVE IN V3/V4, OR R < 0.2 mV IN V4] Compared to ECG 07/29/2022 17:42:53 V5 without signal Electronically Signed On 07-31-2022 19:03:16 CDT by Huey Valentine [id number]
[2022-07-30 04:47] LABS: Anion Gap 13.2 (5-19); Blood Urea Nitrogen 30 mg/dL (8-23); Calcium 8.6 mg/dL (8.5-10.5); Carbon Dioxide 26 mmol/L (22-29); Chloride 107 mmol/L (98-107); Glucose 92 mg/dL (65-115); Osmolality Calculated 300 mOsm/kg (285-295); Potassium 4.2 mmol/L (3.5-5.1); Sodium 142 mmol/L (136-145)
[2022-07-30 06:27] LABS: Glucose Point of Care 118 mg/dL (70-110)
--- NOTE | 2022-07-30 07:52 | PC.NURSE ---
This nurse showed pictures of the pts telemetry strips through the night to . No new orders were received. The pt does not report any chest pain or shortness of breathe at this time and is resting comfortably in bed. Pt states that he does not have any needs at this time.
[2022-07-30] MEDS: atorvastatin 40 mg Tablet PO (08:46)
[2022-07-30] MEDS: amiodarone 200 mg Tablet PO (08:46)
[2022-07-30] MEDS: sacubitril/valsartan 24-26 mg Tablet 2 EACH PO (08:46)
[2022-07-30] MEDS: aspirin 81 mg EC Tablet PO (08:46)
[2022-07-30] MEDS: amlodipine 5 mg Tablet PO (08:46)
[2022-07-30] MEDS: clopidogrel 75 mg Tablet PO (08:46)
[2022-07-30] MEDS: levothyroxine 200 mcg Tablet PO (08:51)
[2022-07-30 12:06] LABS: Glucose Point of Care 149 mg/dL (70-110)
[2022-07-30] MEDS: insulin lispro 100 unit/1 mL SUBCUT (13:04)
--- NOTE | 2022-07-30 13:21 | PM.PN ---
Subjective Subjective: Patient was seen and examined this morning robust urine output overnight with Bumex. Medications: Medication Review Details: Generic Name Dose Route Start Last Admin Trade Name Gladis PRN Reason Stop Dose Admin Amiodarone HCl 200 mg 07/30/22 09:00 07/30/22 08:46 Amiodarone 200 M g Tablet PO 200 mg DAILY BRENDA Administration Amlodipine Besylat e 5 mg 07/30/22 09:00 07/30/22 08:46 Amlodipine 5 Mg Tablet PO 5 mg DAILY BRENDA Administration Aspirin 81 mg 07/30/22 09:00 07/30/22 08:46 Aspirin 81 Mg Ec Tablet PO 81 mg DAILY BRENDA Administration Atorvastatin Calci um 40 mg 07/30/22 09:00 07/30/22 08:46 Atorvastatin 40 Mg Tablet PO 40 mg DAILY BRENDA Administration Bumetanide 2 mg 07/29/22 19:30 07/30/22 13:04 Bumetanide 0.25 Mg/Ml Sdv 10 Ml IVP 2 mg Q8H BRENDA Administration Clopidogrel Bisulf ate 75 mg 07/30/22 09:00 07/30/22 08:46 Clopidogrel 75 M g Tablet PO 75 mg DAILY BRENDA Administration Insulin Human Lisp ro 0 unit 07/30/22 08:00 07/30/22 13:04 Insulin Lispro 1 00 Unit/1 Ml SUBCUT 2 unit TIDWM BRENDA Administration Protocol Levothyroxine Sodi um 200 mcg 07/30/22 09:00 07/30/22 08:51 Levothyroxine 20 0 Mcg Tablet PO 200 mcg DAILY BRENDA Administration Sacubitril/Valsart an 2 each 07/30/22 09:00 07/30/22 08:46 Sacubitril/Valsa rtan 24-26 Mg Tabl et PO 2 each BID BRENDA Administration Vitals/I&O/Wt Last Vital Signs Temp 97.8 F 07/30/22 12:00 Pulse 60 07/30/22 12:00 Resp 16 07/30/22 12:00 BP 110/58 07/30/22 12:00 Pulse Ox 91 07/30/22 12:00 O2 Del Method 07/30/22 12:00 07/29/22 07/30/22 07/30/22 22:59 06:59 14:59 Output Total 1160 / 1160 3800 / 4960 1150 / 1150 Balance -1160 / -1160 -3800 / -4960 -1150 / -1150 Weight last 48 hrs Weight 170.551 kg Weight 168.736 kg Physical Exam Const: COMMON NORMALS: patient oriented x3 HENMT: COMMON NORMALS: normocephalic and atraumatic HEAD & SCALP: normocephalic and atraumatic Resp: COMMON NORMALS: normal respiratory effort, No retractions, No use of accessory muscles and clear to auscultation bilaterally EFFORT & INSPECTION: Yes symmetric chest movement AUSCULTATION: clear to auscultation bilaterally Cardio: COMMON NORMALS: regular rate, regular rhythm, S1 normal heart sound present, S2 normal heart sound present, No gallops present (Cardio), No murmurs present (Cardio), No rub (Cardio) and Peripheral pulses 2+ throughout RATE: regular rate RHYTHM: regular rhythm HEART SOUNDS: S1 normal heart sound present and S2 normal heart sound present PERIPHERAL PULSES: Peripheral pulses 2+ throughout GI: COMMON NORMALS: Normal to inspection, nondistended, normoactive bowel sounds present, Soft to palpation, non-tender, No hepatosplenomegaly present and no masses AUSCULTATION: Yes normoactive bowel sounds PALPATION: Yes Soft to palpation and Yes No hepatosplenomegaly present RECTAL EXAM: Yes deferred Extremity: NARRATIVE EXTREMITY EXAM: Bilateral lower extremity 3+ pitting edema Neuro: COMMON NORMALS: patient oriented x3 Data 07/30/22 03:00 07/30/22 03:00 A&P Assessment and plan (1) Leg edema: (2) Acute exacerbation of CHF (congestive heart failure): (3) CKD (chronic kidney disease): Qualifiers: Chronic kidney disease stage: unspecified stage Qualified Code(s): N18.9 - Chronic kidney disease, unspecified (4) Benign hypertension: (5) Controlled diabetes mellitus without complication, without long-term current use of insulin: Qualifiers: Diabetes mellitus type: type 2 Qualified Code(s): E11.9 - Type 2 diabetes mellitus without complications (6) Adult hypothyroidism: (7) CAD (coronary artery disease): Qualifiers: Coronary Disease-Associated Artery/Lesion type: [place] artery [place] vs. transplanted heart: [place] heart Associated angina: without angina Qualified Code(s): I25.10 - Atherosclerotic heart disease of [place] coronary artery without angina pectoris (8) DVT (deep venous thrombosis): (9) SHIRA treated with BiPAP: Joaquin Hoffmann is a 76 year old male PMHx of HTN, HLD, Hypothyroidism, DM-2 , family history of CAD, SHIRA on BiPAP and was diagnosed with left popliteal vein DVT in Jan 2016. F/u venous duplexes with persistent non occlusive DVT in left popliteal vein and peroneal trunk. He was started on amiodarone for frequent PVC's with drop in LV function came in today after he started experiencing worsening b/l lower extremity swelling as well as associated 18 pounds weight gain in the few days.denied any chest pain ,any significant sob, palpitation,any major diet change. . Assessment : [place] HFpEF: Xray chest : No acute findings, Continue bumix 2mg i.v q8h most recent 2 d echo results reviewed monitor I/O Monitor Electrolytes telemetry monitoring H/O HTN: Continue entresto Hypothyroidism: Continue levothyroxine 200 mcg po daily DM-2 : LDSSI, Monitor FSG, CKD Stage 3 : SCR is at baseline Monitor BMP Bilateral lower extremity swelling: lower extremity Doppler vein :negative for DVT SHIRA on BiPAP: H/O DVT: Code Status : Full code dvt ppx : on lovenox Attestations Medical Necessity Statement*: in hospital for management heart failure, need for IV diuresis. Coding Level of Care Code 31706 Diagnoses Leg edema R60.0 Acute exacerbation of CHF (congestive heart failure) I50.9 CKD (chronic kidney disease) N18.9 Chronic kidney disease stage: unspecified stage Benign hypertension I10 Controlled diabetes mellitus without complication, without long-term current use of insulin E11.9 Diabetes mellitus type: type 2 Adult hypothyroidism E03.9 CAD (coronary artery disease) I25.10 Coronary Disease-Associated Artery/Lesion type: [place] artery [place] vs. transplanted heart: [place] heart Associated angina: without angina DVT (deep venous thrombosis) I82.409 SHIRA treated with BiPAP G47.33
[2022-07-30 17:04] LABS: Glucose Point of Care 105 mg/dL (70-110)
[2022-07-30 20:56] LABS: Glucose Point of Care 115 mg/dL (70-110)
[2022-07-31] VITALS (8 sets, daily range): BP systolic 102–123; BP diastolic 51–88; PULSE 52–59; RESP 15–22; TEMP 36.6–36.9; O2SAT 90–92
[2022-07-31] MEDS: bumetanide 0.25 mg/mL SDV 10 mL 2 MG IVP ×2 (04:06→16:12)
[2022-07-31 05:29] LABS: Basophils % 0.4 %; Eosinophils # 0.2 10^3/uL (0.0-0.8); Eosinophils % 4.7 %; Hematocrit 40.1 % (42.0-52.0); Hemoglobin 12.4 g/dL (11.7-16.6); Lymphocytes # 1.2 10^3/uL (0.8-4.8); Lymphocytes % 25.4 %; Mean Corpuscular HGB Conc 30.9 g/dL (30.0-36.0); Mean Corpuscular Hemoglobin 32.2 pg (28.0-34.0); Mean Corpuscular Volume 104.2 fl (80-94); Mean Platelet Volume 10.3 fL (7.4-10.4); Monocytes # 0.5 10^3/uL (0.2-0.9); Monocytes % 10.7 %; Neutrophils # 2.85 10^3/uL (1.8-7.7); Neutrophils % 58.4 %; Nucleated Red Blood Cells % 0 %; Platelet Count 206 10^3/cmm (130-400); Red Blood Count 3.85 10^6/uL (4.1-5.3); Red Cell Distribution Width 15.5 % (12.1-15.1); White Blood Count 4.9 10^3/uL (4.0-10.0)
[2022-07-31 05:53] LABS: Anion Gap 12.8 (5-19); Blood Urea Nitrogen 34 mg/dL (8-23); Calcium 8.8 mg/dL (8.5-10.5); Carbon Dioxide 29 mmol/L (22-29); Chloride 94 mmol/L (98-107); Glucose 100 mg/dL (65-115); Osmolality Calculated 282 mOsm/kg (285-295); Potassium 3.8 mmol/L (3.5-5.1); Sodium 132 mmol/L (136-145)
[2022-07-31 05:56] LABS: Creatinine Clr Calc Pharmacy 55.4011
[2022-07-31 06:50] LABS: Glucose Point of Care 96 mg/dL (70-110)
[2022-07-31] MEDS: atorvastatin 40 mg Tablet PO (09:33)
[2022-07-31] MEDS: amiodarone 200 mg Tablet PO (09:33)
[2022-07-31] MEDS: aspirin 81 mg EC Tablet PO (09:33)
[2022-07-31] MEDS: clopidogrel 75 mg Tablet PO (09:33)
[2022-07-31] MEDS: levothyroxine 200 mcg Tablet PO (09:33)
[2022-07-31 12:04] LABS: Glucose Point of Care 96 mg/dL (70-110)
--- NOTE | 2022-07-31 14:10 | P.PN_ITS ---
Subjective Subjective: Patient was seen and examined this morning, bilateral lower extremity swelling is going down, continue to have robust urine output in response to Bumex, blood pressure is slightly soft today, will cut back on dose of Bumex to 2 mg, IV twice daily, as well as, hold amlodipine as well as Entresto for now. Medications: Medication Review Details: Generic Name Dose Route Start Last Admin Trade Name Gladis PRN Reason Stop Dose Admin Amiodarone HCl 200 mg 07/30/22 09:00 07/31/22 09:33 Amiodarone 200 M g Tablet PO 200 mg DAILY BRENDA Administration Amlodipine Besylat e 5 mg 07/30/22 09:00 07/30/22 08:46 Amlodipine 5 Mg Tablet PO 5 mg DAILY BRENDA Administration Aspirin 81 mg 07/30/22 09:00 07/31/22 09:33 Aspirin 81 Mg Ec Tablet PO 81 mg DAILY BRENDA Administration Atorvastatin Calci um 40 mg 07/30/22 09:00 07/31/22 09:33 Atorvastatin 40 Mg Tablet PO 40 mg DAILY BRENDA Administration Clopidogrel Bisulf ate 75 mg 07/30/22 09:00 07/31/22 09:33 Clopidogrel 75 M g Tablet PO 75 mg DAILY BRENDA Administration Insulin Human Lisp ro 0 unit 07/30/22 08:00 07/31/22 13:13 Insulin Lispro 1 00 Unit/1 Ml SUBCUT Not Given TIDWM [facility] Protocol Levothyroxine Sodi um 200 mcg 07/30/22 09:00 07/31/22 09:33 Levothyroxine 20 0 Mcg Tablet PO 200 mcg DAILY BRENDA Administration Sacubitril/Valsart an 2 each 07/30/22 09:00 07/30/22 18:15 Sacubitril/Valsa rtan 24-26 Mg Tabl et PO Not Given BID [facility] Vitals/I&O/Wt Last Vital Signs Temp 97.9 F 07/31/22 11:53 Pulse 59 L 07/31/22 11:53 Resp 18 07/31/22 11:53 BP 102/59 07/31/22 11:53 Pulse Ox 92 07/31/22 11:53 O2 Del Method 07/31/22 11:53 07/30/22 07/31/22 07/31/22 22:59 06:59 14:59 Intake Total 480 / 720 480 / 1200 240 / 240 Output Total 2700 / 3850 850 / 4700 1050 / 1050 Balance -2220 / -3130 -370 / -3500 -810 / -810 Weight last 48 hrs Weight 164.745 kg Weight 170.551 kg Physical Exam Const: COMMON NORMALS: patient oriented x3 HENMT: COMMON NORMALS: normocephalic and atraumatic HEAD & SCALP: normocephalic and atraumatic Resp: COMMON NORMALS: normal respiratory effort, No retractions, No use of accessory muscles and clear to auscultation bilaterally EFFORT & INSPECTION: Yes symmetric chest movement AUSCULTATION: clear to auscultation bilaterally Cardio: COMMON NORMALS: regular rate, regular rhythm, S1 normal heart sound present, S2 normal heart sound present, No gallops present (Cardio), No murmurs present (Cardio), No rub (Cardio) and Peripheral pulses 2+ throughout RATE: regular rate RHYTHM: regular rhythm HEART SOUNDS: S1 normal heart sound present and S2 normal heart sound present PERIPHERAL PULSES: Peripheral pulses 2+ throughout GI: COMMON NORMALS: Normal to inspection, nondistended, normoactive bowel sounds present, Soft to palpation, non-tender, No hepatosplenomegaly present and no masses AUSCULTATION: Yes normoactive bowel sounds PALPATION: Yes Soft to palpation and Yes No hepatosplenomegaly present RECTAL EXAM: Yes deferred Extremity: NARRATIVE EXTREMITY EXAM: Bilateral lower extremity 3+ pitting edema Neuro: COMMON NORMALS: patient oriented x3 Data 07/31/22 05:00 07/31/22 05:00 A&P Assessment and plan (1) Leg edema: (2) Acute exacerbation of CHF (congestive heart failure): (3) CKD (chronic kidney disease): Qualifiers: Chronic kidney disease stage: unspecified stage Qualified Code(s): N18.9 - Chronic kidney disease, unspecified (4) Benign hypertension: (5) Controlled diabetes mellitus without complication, without long-term current use of insulin: Qualifiers: Diabetes mellitus type: type 2 Qualified Code(s): E11.9 - Type 2 diabetes mellitus without complications (6) Adult hypothyroidism: (7) CAD (coronary artery disease): Qualifiers: Coronary Disease-Associated Artery/Lesion type: [place] artery [place] vs. transplanted heart: [place] heart Associated angina: without angina Qualified Code(s): I25.10 - Atherosclerotic heart disease of [place] coronary artery without angina pectoris (8) DVT (deep venous thrombosis): (9) SHIRA treated with BiPAP: Joaquin Hoffmann is a 76 year old male PMHx of HTN, HLD, Hypothyroidism, DM-2 , family history of CAD, SHIRA on BiPAP and was diagnosed with left popliteal vein DVT in Jan 2016. F/u venous duplexes with persistent non occlusive DVT in left popliteal vein and peroneal trunk. He was started on amiodarone for frequent PVC's with drop in LV function came in today after he started experiencing worsening b/l lower extremity swelling as well as associated 18 pounds weight gain in the few days.denied any chest pain ,any significant sob, palpitation,any major diet change. . Assessment : [place] HFpEF: Xray chest : No acute findings, Continue bumix 2mg i.v q8h most recent 2 d echo results reviewed monitor I/O Monitor Electrolytes telemetry monitoring H/O HTN: Continue entresto Hypothyroidism: Continue levothyroxine 200 mcg po daily DM-2 : LDSSI, Monitor FSG, CKD Stage 3 : SCR is at baseline Monitor BMP Bilateral lower extremity swelling: lower extremity Doppler vein :negative for DVT SHIRA on BiPAP: Code Status : Full code dvt ppx : on lovenox Attestations Medical Necessity Statement*: Needs to be in hospital for IV diuresis. Coding Level of Care Code 69322 Diagnoses Leg edema R60.0 Acute exacerbation of CHF (congestive heart failure) I50.9 CKD (chronic kidney disease) N18.9 Chronic kidney disease stage: unspecified stage Benign hypertension I10 Controlled diabetes mellitus without complication, without long-term current use of insulin E11.9 Diabetes mellitus type: type 2 Adult hypothyroidism E03.9 CAD (coronary artery disease) I25.10 Coronary Disease-Associated Artery/Lesion type: [place] artery [place] vs. transplanted heart: [place] heart Associated angina: without angina DVT (deep venous thrombosis) I82.409 SHIRA treated with BiPAP G47.33
[2022-07-31] MEDS: bisacodyl 5 mg Tablet 10 MG PO (16:17)
[2022-07-31 17:17] LABS: Glucose Point of Care 89 mg/dL (70-110)
[2022-07-31 20:47] LABS: Glucose Point of Care 135 mg/dL (70-110)
[2022-08-01] VITALS (9 sets, daily range): BP systolic 108–133; BP diastolic 52–66; PULSE 53–61; RESP 16–19; TEMP 36.5–36.9; O2SAT 90–93
[2022-08-01 06:13] LABS: Basophils % 0.4 %; Eosinophils # 0.3 10^3/uL (0.0-0.8); Eosinophils % 5.1 %; Hematocrit 36.6 % (42.0-52.0); Hemoglobin 11.7 g/dL (11.7-16.6); Lymphocytes # 1.1 10^3/uL (0.8-4.8); Lymphocytes % 20.7 %; Mean Corpuscular Hemoglobin 33.3 pg (28.0-34.0); Mean Corpuscular Volume 104.3 fl (80-94); Mean Platelet Volume 9.9 fL (7.4-10.4); Monocytes # 0.6 10^3/uL (0.2-0.9); Monocytes % 11.2 %; Neutrophils # 3.38 10^3/uL (1.8-7.7); Nucleated Red Blood Cells % 0 %; Platelet Count 186 10^3/cmm (130-400); Red Blood Count 3.51 10^6/uL (4.1-5.3); Red Cell Distribution Width 15.5 % (12.1-15.1); White Blood Count 5.5 10^3/uL (4.0-10.0)
[2022-08-01 06:28] LABS: Chloride 99 mmol/L (98-107); Potassium 3.7 mmol/L (3.5-5.1); Sodium 138 mmol/L (136-145)
[2022-08-01 06:28] LABS: Glucose Point of Care 106 mg/dL (70-110)
[2022-08-01 06:56] LABS: Anion Gap 13.7 (5-19); Blood Urea Nitrogen 40 mg/dL (8-23); Calcium 8.2 mg/dL (8.5-10.5); Carbon Dioxide 29 mmol/L (22-29); Glucose 97 mg/dL (65-115); Osmolality Calculated 298 mOsm/kg (285-295)
[2022-08-01] MEDS: bumetanide 0.25 mg/mL SDV 10 mL 2 MG IVP ×2 (09:53→17:43)
[2022-08-01] MEDS: amiodarone 200 mg Tablet PO (09:54)
[2022-08-01] MEDS: levothyroxine 200 mcg Tablet PO (09:54)
[2022-08-01] MEDS: clopidogrel 75 mg Tablet PO (09:54)
[2022-08-01] MEDS: atorvastatin 40 mg Tablet PO (09:54)
[2022-08-01] MEDS: aspirin 81 mg EC Tablet PO (09:54)
[2022-08-01 12:25] LABS: Glucose Point of Care 103 mg/dL (70-110)
[2022-08-01 16:45] LABS: Glucose Point of Care 126 mg/dL (70-110)
[2022-08-01 20:35] LABS: Glucose Point of Care 146 mg/dL (70-110)
--- NOTE | 2022-08-01 22:23 | P.PN_ITS ---
Subjective Subjective: LE edema is improving, currently on RA, bumex has been reduced to BID today , net negative Medications: Medication Review Details: Generic Name Dose Route Start Last Admin Trade Name Gladis BRICE Reason Stop Dose Admin Amiodarone HCl 200 mg 07/30/22 09:00 07/31/22 09:33 Amiodarone 200 M g Tablet PO 200 mg DAILY BRENDA Administration Amlodipine Besylat e 5 mg 07/30/22 09:00 07/30/22 08:46 Amlodipine 5 Mg Tablet PO 5 mg DAILY BRENDA Administration Aspirin 81 mg 07/30/22 09:00 07/31/22 09:33 Aspirin 81 Mg Ec Tablet PO 81 mg DAILY BRENDA Administration Atorvastatin Calci um 40 mg 07/30/22 09:00 07/31/22 09:33 Atorvastatin 40 Mg Tablet PO 40 mg DAILY BRENDA Administration Clopidogrel Bisulf ate 75 mg 07/30/22 09:00 07/31/22 09:33 Clopidogrel 75 M g Tablet PO 75 mg DAILY BRENDA Administration Insulin Human Lisp ro 0 unit 07/30/22 08:00 07/31/22 13:13 Insulin Lispro 1 00 Unit/1 Ml SUBCUT Not Given TIDWM [facility] Protocol Levothyroxine Sodi um 200 mcg 07/30/22 09:00 07/31/22 09:33 Levothyroxine 20 0 Mcg Tablet PO 200 mcg DAILY BRENDA Administration Sacubitril/Valsart an 2 each 07/30/22 09:00 07/30/22 18:15 Sacubitril/Valsa rtan 24-26 Mg Tabl et PO Not Given BID [facility] Vitals/I&O/Wt Last Vital Signs Temp 98.0 F 08/01/22 19:07 Pulse 61 08/01/22 19:07 Resp 16 08/01/22 19:07 BP 108/52 08/01/22 19:07 Pulse Ox 90 08/01/22 19:07 O2 Del Method 08/01/22 15:46 08/01/22 08/01/22 08/01/22 06:59 14:59 22:59 Intake Total 240 / 1560 240 / 240 480 / 720 Output Total 750 / 4350 700 / 700 300 / 1000 Balance -510 / -2790 -460 / -460 180 / -280 Weight last 48 hrs Weight 162.114 kg Weight 164.745 kg Physical Exam Narrative: General: No acute distress, AO x3 HEENT: PERRLA, pupils bilaterally equal and reactive, pallors not present Chest: Normal vesicular breath sounds, no added sounds, equal good air entry bilaterally CVS: S1-S2 regular, no murmurs, no tachycardia, no gallops, no rubs Abdomen: Soft, nontender, no organomegaly, bowel sounds present Neuro: No focal deficits, no facial deformity, AO x3, power 5/5 in all limbs Extremities: B/L LE edema, left worse than right, changes of stasis dermatitis Data 08/01/22 05:50 08/01/22 05:50 A&P Assessment and plan (1) Leg edema: (2) Acute exacerbation of CHF (congestive heart failure): (3) CKD (chronic kidney disease): Qualifiers: Chronic kidney disease stage: unspecified stage Qualified Code(s): N18.9 - Chronic kidney disease, unspecified (4) Benign hypertension: (5) Controlled diabetes mellitus without complication, without long-term current use of insulin: Qualifiers: Diabetes mellitus type: type 2 Qualified Code(s): E11.9 - Type 2 diabetes mellitus without complications (6) Adult hypothyroidism: (7) CAD (coronary artery disease): Qualifiers: Coronary Disease-Associated Artery/Lesion type: [place] artery [place] vs. transplanted heart: [place] heart Associated angina: without angina Qualified Code(s): I25.10 - Atherosclerotic heart disease of [place] coronary artery without angina pectoris (8) DVT (deep venous thrombosis): (9) SHIRA treated with BiPAP: Plan Shun is a 76 year old male PMHx of HTN, HLD, Hypothyroidism, DM-2 , family history of CAD, SHIRA on BiPAP and was diagnosed with left popliteal vein DVT in Jan 2016. F/u venous duplexes with persistent non occlusive DVT in left popliteal vein and peroneal trunk. He was started on amiodarone for frequent PVC's with drop in LV function came in today after he started experiencing worsening b/l lower extremity swelling as well as associated 18 pounds weight gain in the few days.denied any chest pain ,any si gnificant sob, palpitation,any major diet change. . Assessment : [place] HFpEF: Xray chest : No acute findings, Continue bumix 2mg i.v q8h ----> reduced to 2mg iv q12h today most recent 2 d echo results reviewed monitor I/O Monitor Electrolytes telemetry monitoring holding entresto currently in view of LAUREL Hypothyroidism: Continue levothyroxine 200 mcg po daily DM-2 : LDSSI, Monitor FSG, CKD Stage 3 : SCR is at baseline Monitor BMP Bilateral lower extremity swelling: lower extremity Doppler vein :negative for DVT SHIRA on BiPAP: Code Status : Full code dvt ppx : on lovenox Attestations Medical Necessity Statement*: iv diuresis, plan to transition to po over the next 24 hrs Coding Level of Care Code Acute Code for Chg Fwd Diagnoses Leg edema R60.0 Acute exacerbation of CHF (congestive heart failure) I50.9 CKD (chronic kidney disease) N18.9 Chronic kidney disease stage: unspecified stage Benign hypertension I10 Controlled diabetes mellitus without complication, without long-term current use of insulin E11.9 Diabetes mellitus type: type 2 Adult hypothyroidism E03.9 CAD (coronary artery disease) I25.10 Coronary Disease-Associated Artery/Lesion type: [place] artery [place] vs. transplanted heart: [place] heart Associated angina: without angina DVT (deep venous thrombosis) I82.409 SHIRA treated with BiPAP G47.33
[2022-08-02] VITALS (12 sets, daily range): BP systolic 107–122; BP diastolic 54–73; PULSE 50–63; RESP 15–18; TEMP 36.6–37.1; O2SAT 90–95
[2022-08-02 05:45] LABS: Basophils % 0.4 %; Eosinophils # 0.3 10^3/uL (0.0-0.8); Eosinophils % 5.4 %; Hematocrit 38.7 % (42.0-52.0); Hemoglobin 12.2 g/dL (11.7-16.6); Lymphocytes # 1.1 10^3/uL (0.8-4.8); Lymphocytes % 22.9 %; Mean Corpuscular HGB Conc 31.5 g/dL (30.0-36.0); Mean Corpuscular Hemoglobin 32.5 pg (28.0-34.0); Mean Corpuscular Volume 103.2 fl (80-94); Mean Platelet Volume 10.3 fL (7.4-10.4); Monocytes # 0.5 10^3/uL (0.2-0.9); Monocytes % 11.1 %; Neutrophils # 2.75 10^3/uL (1.8-7.7); Nucleated Red Blood Cells % 0 %; Platelet Count 192 10^3/cmm (130-400); Red Blood Count 3.75 10^6/uL (4.1-5.3); Red Cell Distribution Width 15.5 % (12.1-15.1); White Blood Count 4.6 10^3/uL (4.0-10.0)
[2022-08-02 06:09] LABS: Alanine Aminotransferase 12 U/L (0-41); Albumin Level 3.8 g/dL (3.5-5.2); Alkaline Phosphatase 107 U/L (40-130); Anion Gap 15.1 (5-19); Aspartate Amino Transferase 15 U/L (0-40); Blood Urea Nitrogen 40 mg/dL (8-23); Calcium 8.2 mg/dL (8.5-10.5); Carbon Dioxide 30 mmol/L (22-29); Chloride 101 mmol/L (98-107); Globulin 2.9 g/dL (1.3-4.6); Glucose 101 mg/dL (65-115); Osmolality Calculated 304 mOsm/kg (285-295); Potassium 4.1 mmol/L (3.5-5.1); Sodium 142 mmol/L (136-145); Total Bilirubin 0.8 mg/dL (0.15-1.2); Total Protein 6.7 g/dL (6.6-8.7)
[2022-08-02 06:24] LABS: Glucose Point of Care 111 mg/dL (70-110)
[2022-08-02] MEDS: bumetanide 0.25 mg/mL SDV 10 mL 2 MG IVP (08:29)
[2022-08-02] MEDS: aspirin 81 mg EC Tablet PO (08:30)
[2022-08-02] MEDS: atorvastatin 40 mg Tablet PO (08:30)
[2022-08-02] MEDS: clopidogrel 75 mg Tablet PO (08:30)
[2022-08-02] MEDS: levothyroxine 200 mcg Tablet PO (08:34)
[2022-08-02 11:51] LABS: Glucose Point of Care 124 mg/dL (70-110)
--- NOTE | 2022-08-02 15:42 | P.PN_ITS ---
Subjective Subjective: Lower extremity edema is unchanged over yesterday. Net -1500 over last 24 hours. Overall -13 L since admission. Creatinine currently stable at 1.9 over the last 3 days. Urine output 3.3 L. Medications: Reviewed: Yes Medication Review Details: Generic Name Dose Route Start Last Admin Trade Name Rubenq PRN Reason Stop Dose Admin Amiodarone HCl 200 mg 07/30/22 09:00 07/31/22 09:33 Amiodarone 200 M g Tablet PO 200 mg DAILY BRENDA Administration Amlodipine Besylat e 5 mg 07/30/22 09:00 07/30/22 08:46 Amlodipine 5 Mg Tablet PO 5 mg DAILY BRENDA Administration Aspirin 81 mg 07/30/22 09:00 07/31/22 09:33 Aspirin 81 Mg Ec Tablet PO 81 mg DAILY BRENDA Administration Atorvastatin Calci um 40 mg 07/30/22 09:00 07/31/22 09:33 Atorvastatin 40 Mg Tablet PO 40 mg DAILY BRENDA Administration Clopidogrel Bisulf ate 75 mg 07/30/22 09:00 07/31/22 09:33 Clopidogrel 75 M g Tablet PO 75 mg DAILY BRENDA Administration Insulin Human Lisp ro 0 unit 07/30/22 08:00 07/31/22 13:13 Insulin Lispro 1 00 Unit/1 Ml SUBCUT Not Given TIDWM [facility] Protocol Levothyroxine Sodi um 200 mcg 07/30/22 09:00 07/31/22 09:33 Levothyroxine 20 0 Mcg Tablet PO 200 mcg DAILY [facility] Administration Sacubitril/Valsart an 2 each 07/30/22 09:00 07/30/22 18:15 Sacubitril/Valsa rtan 24-26 Mg Tabl et PO Not Given BID [facility] Vitals/I&O/Wt Last Vital Signs Temp 97.8 F 08/02/22 12:00 Pulse 60 08/02/22 12:00 Resp 16 08/02/22 12:00 BP 120/65 08/02/22 12:00 Pulse Ox 93 08/02/22 12:00 O2 Del Method 08/02/22 10:22 08/02/22 08/02/22 08/02/22 06:59 14:59 22:59 Intake Total 480 / 1440 600 / 600 Output Total 1200 / 2200 1800 / 1800 Balance -720 / -760 -1200 / -1200 Weight last 48 hrs Weight 161.66 kg Weight 161.66 kg Weight 162.114 kg Physical Exam Narrative: General: No acute distress, AO x3 HEENT: PERRLA, pupils bilaterally equal and reactive, pallors not present Chest: Normal vesicular breath sounds, no added sounds, equal good air entry bilaterally CVS: S1-S2 regular, no murmurs, no tachycardia, no gallops, no rubs Abdomen: Soft, nontender, no organomegaly, bowel sounds present Neuro: No focal deficits, no facial deformity, AO x3, power 5/5 in all limbs Data 08/02/22 04:57 08/02/22 04:57 A&P Assessment and plan (1) Leg edema: (2) Acute exacerbation of CHF (congestive heart failure): (3) CKD (chronic kidney disease): Qualifiers: Chronic kidney disease stage: unspecified stage Qualified Code(s): N18.9 - Chronic kidney disease, unspecified (4) Benign hypertension: (5) Controlled diabetes mellitus without complication, without long-term current use of insulin: Qualifiers: Diabetes mellitus type: type 2 Qualified Code(s): E11.9 - Type 2 diabetes mellitus without complications (6) Adult hypothyroidism: (7) CAD (coronary artery disease): Qualifiers: Coronary Disease-Associated Artery/Lesion type: [place] artery [place] vs. transplanted heart: [place] heart Associated angina: without angina Qualified Code(s): I25.10 - Atherosclerotic heart disease of [place] coronary artery without angina pectoris (8) DVT (deep venous thrombosis): (9) SHIRA treated with BiPAP: Plan Shun is a 76 year old male PMHx of HTN, HLD, Hypothyroidism, DM-2 , family history of CAD, SHIRA on BiPAP and was diagnosed with left popliteal vein DVT in Jan 2016. F/u venous duplexes with persistent non occlusive DVT in left popliteal vein and peroneal trunk. He was started on amiodarone for frequent PVC's with drop in LV function came in current admission after he started experiencing worsening b/l lower extremity swelling as well as associated 18 pounds weight gain in the few days.denied any chest pain ,any significant sob, palpitation,any major diet change. . #Bilateral lower extremity swelling, left greater than right with changes of venous stasis bilaterally. Suspect that patient's symptoms are related to a combination of decompensated heart failure as he has a history of chronic heart failure per outpatient cardiology notes review. Typically he is advised to take Bumex 2 mg in a.m. and 1 mg in p.m., however he is noncompliant with the same. States that he often avoids these using the Bumex as it makes him diurese more which is inconvenient for him when he is outside his home. He is hesitant to wear a diaper therefore just avoids the diuretic. Counseled extensively that missing her diuretic is likely to precipitate worsening lower extremity edema. Also suspect that dietary indiscretion is playing a part here. Patient does not typically follow any fluid restriction, eats Ramen, Romansh food multiple times in a week and likes to salt his potatoes. He admits that he does not follow sa lt restriction. Counseled extensively today regarding lifestyle changes and salt and fluid restriction. Patient also has a chronic nonocclusive DVT, possibly also has venous reflux as evidenced by stasis dermatitis changes over his lower extremities and worsening left edema compared to the right side. Advised to wear his compression stockings, states that recently he has not been able to put them on due to the edema. PT consult has been ordered for lymphedema wraps and patient education on how to use these. His lower extremity edema is currently improving Diuretic changed from Bumex 2 mg IV every 12 hours to Bumex 2 mg p.o. twice daily. We will monitor his urine output with the change. No current signs of pulmonary edema. Echocardiogram from March 2022 showed an LVEF of 55%, grade 1 diastolic dysfunction. monitor I/O Monitor Electrolytes telemetry monitoring holding entresto currently in view of LAUREL Continue amiodarone 200 mg daily. Hypothyroidism: Continue levothyroxine 200 mcg po daily DM-2 : LDSSI, Monitor FSG, CKD Stage 3 : SCR is currently stabilized at 1.9. He has good urine output. Monitor BMP Bilateral lower extremity swelling: lower extremity Doppler vein :negative for DVT SHIRA on BiPAP: Code Status : Full code dvt ppx : on lovenox Attestations Medical Necessity Statement*: Change IV to p.o. diuretics, if continues to improve we will plan on discharging over the next 24 hours. Coding Level of Care Code Acute Code for Chg Fwd Moderate MDM includes number and complexity of problems actively addressed d uring encounter, amount and/or complexity of data reviewed/ordered and described risk of complication, morbidity or mortality of management as documented Diagnoses Leg edema R60.0 Acute exacerbation of CHF (congestive heart failure) I50.9 CKD (chronic kidney disease) N18.9 Chronic kidney disease stage: unspecified stage Benign hypertension I10 Controlled diabetes mellitus without complication, without long-term current use of insulin E11.9 Diabetes mellitus type: type 2 Adult hypothyroidism E03.9 CAD (coronary artery disease) I25.10 Coronary Disease-Associated Artery/Lesion type: [place] artery [place] vs. transplanted heart: [place] heart Associated angina: without angina DVT (deep venous thrombosis) I82.409 SHIRA treated with BiPAP G47.33
[2022-08-02 16:51] LABS: Glucose Point of Care 100 mg/dL (70-110)
[2022-08-02] MEDS: bumetanide 1 mg Tablet 2 MG PO (17:23)
[2022-08-02 21:26] LABS: Glucose Point of Care 121 mg/dL (70-110)
[2022-08-03] VITALS (8 sets, daily range): BP systolic 109–154; BP diastolic 66–81; PULSE 50–58; RESP 15–18; TEMP 36.6–36.8; O2SAT 90–94
[2022-08-03 06:50] LABS: Glucose Point of Care 107 mg/dL (70-110)
[2022-08-03] MEDS: aspirin 81 mg EC Tablet PO (08:56)
[2022-08-03] MEDS: levothyroxine 200 mcg Tablet PO (08:56)
[2022-08-03] MEDS: clopidogrel 75 mg Tablet PO (08:56)
[2022-08-03] MEDS: atorvastatin 40 mg Tablet PO (08:56)
[2022-08-03] MEDS: bumetanide 1 mg Tablet 2 MG PO (08:56)
--- NOTE | 2022-08-03 09:19 | PC.NURSE ---
spoke to Dr. Nelson in heart to heart rounding of patients heart rate of 50. I held 200 mg Amiodarone due to heart rate. Dr. Nelson gave verbal order to give the Amiodarone 200 mg.
[2022-08-03] MEDS: amiodarone 200 mg Tablet PO (09:46)
[2022-08-03 10:30] LABS: Alanine Aminotransferase 13 U/L (0-41); Albumin Level 4.1 g/dL (3.5-5.2); Alkaline Phosphatase 116 U/L (40-130); Anion Gap 12.9 (5-19); Aspartate Amino Transferase 15 U/L (0-40); Blood Urea Nitrogen 41 mg/dL (8-23); Calcium 8.4 mg/dL (8.5-10.5); Carbon Dioxide 30 mmol/L (22-29); Chloride 100 mmol/L (98-107); Glucose 160 mg/dL (65-115); Osmolality Calculated 302 mOsm/kg (285-295); Potassium 3.9 mmol/L (3.5-5.1); Sodium 139 mmol/L (136-145); Total Bilirubin 0.8 mg/dL (0.15-1.2); Total Protein 7.1 g/dL (6.6-8.7)
[2022-08-03 11:53] LABS: Glucose Point of Care 150 mg/dL (70-110)
[2022-08-03] MEDS: insulin lispro 100 unit/1 mL SUBCUT (12:26)
--- NOTE | 2022-08-03 13:05 | PM.DCS ---
Discharge Providers Date of Admission: 07/29/22 18:02 Date of Discharge: August 03, 2022 Attending Provider at Admission: Helio Ramsay MD Attending Provider at Discharge: Alyson Nelson MD Primary Care Provider: GOLDIE Harvey Diagnoses at Discharge Discharge Diagnosis (1) Leg edema: Status: Acute (2) Acute exacerbation of CHF (congestive heart failure): Status: Acute (3) CKD (chronic kidney disease): Status: Chronic Qualifiers: Chronic kidney disease stage: unspecified stage Qualified Code(s): N18.9 - Chronic kidney disease, unspecified (4) Benign hypertension: Status: Chronic (5) Controlled diabetes mellitus without complication, without long-term current use of insulin: Status: Chronic Qualifiers: Diabetes mellitus type: type 2 Qualified Code(s): E11.9 - Type 2 diabetes mellitus without complications (6) Adult hypothyroidism: Status: Chronic (7) CAD (coronary artery disease): Status: Acute Qualifiers: Associated angina: without angina Coronary Disease-Associated Artery/Lesion type: [place] artery [place] vs. transplanted heart: [place] heart Qualified Code(s): I25.10 - Atherosclerotic heart disease of [place] coronary artery without angina pectoris (8) DVT (deep venous thrombosis): Status: Acute (9) SHIRA treated with BiPAP: Status: Chronic Reason for Visit Reason for Visit: legs swelling Hospital Course Hospital Course Shun is a 76 year old male?PMHx of HTN, HLD, Hypothyroidism, DM-2 , family history of CAD, SHIRA on BiPAP and was diagnosed with left popliteal vein DVT in Jan 2016. F/u venous duplexes with persistent non occlusive DVT in left popliteal vein and peroneal trunk. He was started on amiodarone for frequent PVC's with drop in LV function came in current admission after he started experiencing worsening b/l lower extremity swelling as well as associated 18 pounds weight gain in the few days.denied any chest pain ,any significant sob, palpitation,any major diet change. . # Bilateral lower extremity swelling, left greater than right with changes of venous stasis bilaterally. Suspect that patient's symptoms are related to a combination of decompensated heart failure as he has a history of chronic heart failure per outpatient cardiology notes review.? Typically he is advised to take Bumex 2 mg in a.m. and 1 mg in p.m., however he is noncompliant with the same.? States that he often avoids these using the Bumex as it makes him diurese more which is inconvenient for him when he is outside his home.? He is hesitant to wear a diaper therefore just avoids the diuretic.? Counseled extensively that missing her diuretic is likely to precipitate worsening lower extremity edema. Also suspect that dietary indiscretion is playing a part here.? Patient does not typically follow any fluid restriction, eats Ramen, [place] food multiple times in a week and likes to salt his potatoes.? He admits that he does not follow salt restriction.? Counseled extensively today regarding lifestyle changes and salt and fluid restriction. Patient also has a chronic nonocclusive DVT, possibly also has venous reflux as evidenced by stasis dermatitis changes over his lower extremities and worsening left edema compared to the right side. Advised to wear his compression stockings, states that recently he has not been able to put them on due to the edema. PT consult has been ordered for lymphedema wraps, outpatient follow-up has been arranged with physical therapy for continued lymphedema care. Patient received IV diuresis, initially with Bumex 2 mg IV every 8 hours, slowly tapered down to 2 mg p.o. twice daily which is patient still taking currently. Bumex dose was brought down as patient had an LAUREL with peak creatinine at 1.9. Creatinine is improving currently to 1.7. He is overall net negative by about 13 L. Lower extremity edema is much improved however not completely resolved. At this present time he is recommended to continue Bumex 2 mg p.o. twice daily at home. Follow-up with cardiology in 1 week. Patient reports that over the past several months he has been experiencing dyspnea on exertion. No active chest pain. He was given an albuterol inhaler which helps him slightly. Review of past notes shows he had a stress test in 2020. Echocardiogram from October 2021 had shown an LVEF of 55%, normal diastolic function. Given worsening dyspnea over several months with otherwise a normal BNP, no signs of pulmonary edema on chest x-ray, concerned that this could represent angina. Discussed with patient that a stress test would likely help differentiate, stress test has been ordered as an outpatient with recommended cardiology follow-up in about a week's time. His baseline heart rate ranges between 50 to 60 bpm, he is not symptomatic. No adjustments have been made to his current Amiodarone dosing which is at 200mg daily. His metoprolol has been held. holding entresto currently in view of LAUREL. Please follow-up with CMP with cardiology prior to resuming. Hypothyroidism: Continue levothyroxine 200 mcg po daily DM-2 : LDSSI, Monitor FSG, CKD Stage 3 : SCR is currently stabilized at 1.9.? He has good urine output. Monitor BMP? Bilateral lower extremity swelling: ?lower extremity Doppler vein :negative for DVT ? SHIRA on BiPAP: Physical Exam Narrative: General: No acute distress, AO x3 HEENT: PERRLA, pupils bilaterally equal and reactive, pallors not present Chest: Normal vesicular breath sounds, no added sounds, equal good air entry bilaterally CVS: S1-S2 regular, no murmurs, no tachycardia, no gallops, no rubs Abdomen: Soft, nontender, no organomegaly, bowel sounds present Neuro: No focal deficits, no facial deformity, AO x3, power 5/5 in all limbs Discharge Data Studies Completed and Pending Completed Studies During Hospitalization Category Date Time Status XR chest 1V portable [id number] Stat Exams 07/29/22 14:06 Completed US venous duplex lower extremity bilat [CV venous Ultrasound 07/29/22 16:36 [place] [id number]] Stat Radiology Impressions Chest X-Ray 07/29/22 14:06 IMPRESSION: 1. No acute cardiopulmonary finding. Venous Duplex 07/29/22 16:36 IMPRESSION: No sonographic evidence of deep vein thrombosis. Laboratory Results WBC 4.6 10^3/uL (4.0-10.0) 08/02/22 04:57 RBC 3.75 10^6/uL (4.1-5.3) L 08/02/22 04:57 Hgb 12.2 g/dL (11.7-16.6) 08/02/22 04:57 Hct 38.7 % (42.0-52.0) L 08/02/22 04:57 MCV 103.2 fl (80-94) H 08/02/22 04:57 MCH 32.5 pg (28.0-34.0) 08/02/22 04:57 MCHC 31.5 g/dL (30.0-36.0) 08/02/22 04:57 RDW 15.5 % (12.1-15.1) H 08/02/22 04:57 Plt Count 192 10^3/cmm (130-400) 08/02/22 04:57 MPV 10.3 fL (7.4-10.4) 08/02/22 04:57 Neut % (Auto) 60.0 % 08/02/22 04:57 Lymph % (Auto) 22.9 % 08/02/22 04:57 [place] % (Auto) 11.1 % 08/02/22 04:57 Eos % (Auto) 5.4 % 08/02/22 04:57 Baso % (Auto) 0.4 % 08/02/22 04:57 Neut # (Auto) 2.75 10^3/uL (1.8-7.7) 08/02/22 04:57 Lymph # (Auto) 1.1 10^3/uL (0.8-4.8) 08/02/22 04:57 [place] # (Auto) 0.5 10^3/uL (0.2-0.9) 08/02/22 04:57 Eos # (Auto) 0.3 10^3/uL (0.0-0.8) 08/02/22 04:57 Baso # (Auto) 0.0 10^3/uL (0.0-0.1) 08/02/22 04:57 Nucleated RBC % (auto) 0 % 08/02/22 04:57 Nucleated RBCs # 0.0 /100WBC 08/02/22 04:57 Sodium 139 mmol/L (136-145) 08/03/22 09:57 Potassium 3.9 mmol/L (3.5-5.1) 08/03/22 09:57 Chloride 100 mmol/L (98-107) 08/03/22 09:57 Carbon Dioxide 30 mmol/L (22-29) H 08/03/22 09:57 Anion Gap 12.9 (5-19) 08/03/22 09:57 BUN 41 mg/dL (8-23) H 08/03/22 09:57 Creatinine 1.7 mg/dL (0.7-1.2) H 08/03/22 09:57 GFR Calculation Not Reportable 08/03/22 09:57 Glucose 160 mg/dL (65-115) H 08/03/22 09:57 POC Glucose 150 mg/dL (70-110) H 08/03/22 11:47 Calculated Osmolality 302 mOsm/kg (285-295) H 08/03/22 09:57 Calcium 8.4 mg/dL (8.5-10.5) L 08/03/22 09:57 Magnesium 2.0 mg/dL (1.7-2.3) 07/30/22 03:00 Total Bilirubin 0.8 mg/dL (0.15-1.2) 08/03/22 09:57 AST 15 U/L (0-40) 08/03/22 09:57 ALT 13 U/L (0-41) 08/03/22 09:57 Alkaline Phosphatase 116 U/L (40-130) 08/03/22 09:57 Troponin T Baseline 18 ng/L (0-15) H 07/29/22 14:23 Troponin T 120 Minute 17.45 ng/L (0-15) H 07/29/22 16:31 Delta Troponin T -0.55 ABS# (0-10) L 07/29/22 16:31 Troponin T Hi Sens 6Hr 18.30 ng/L (0-15) H 07/29/22 20:21 Troponin T Hi Sens 6Hr Delta 0.30 ng/L (0-12) 07/29/22 20:21 NT-Pro-B Natriuret Pep 121 pg/mL (0-450) 07/29/22 14:23 Total Protein 7.1 g/dL (6.6-8.7) 08/03/22 09:57 Albumin 4.1 g/dL (3.5-5.2) 08/03/22 09:57 Globulin 3.0 g/dL (1.3-4.6) 08/03/22 09:57 Vitals Last Vital Signs Temp 97.8 F 08/03/22 12:00 Pulse 55 L 08/03/22 12:00 Resp 18 08/03/22 12:00 BP 154/81 08/03/22 12:00 Pulse Ox 94 08/03/22 12:00 O2 Del Method 08/03/22 12:00 Discharge Plan Discharge Patient Disposition: Home Condition: Stable Prescriptions: New bumetanide 1 mg Tablet 2 mg PO BID 30 Days Qty: 120 0RF Continued (DME) blood-glucose meter [Precision Xtra Monitor] Kit See Rx Instructions .ROUTE .MEDSUPPLY Qty: 1 Rx Instructions: As directed cyanocobalamin (vitamin B-12) 1 tab PO DAILY aspirin [Aspir-81] 81 mg tablet,delayed release (DR/EC) 81 mg PO DAILY cholecalciferol (vitamin D3) [Vitamin D3] 25 mcg (1,000 unit) capsule 1,000 unit PO DAILY coenzyme Q10 [Co Q-10] 30 mg capsule 30 mg PO DAILY Qty: 30 0RF Centrum Silver 400-250 mcg tablet,chewable 1 tab PO DAILY Qty: 30 0RF polyethylene glycol 3350 [Miralax] 17 gram powder in packet 17 g PO DAILY PRN (Reason: Constipation) Trulicity 0.75 mg/0.5 mL pen injector 0.75 mg SUBCUT .weekly Qty: 6 1RF levothyroxine 200 mcg tablet 200 mcg PO DAILY Qty: 90 1RF nitroglycerin [Nitrostat] 0.4 mg tablet, sublingual 0.4 mg SUBLINGUAL Q5M PRN (Reason: chest pain) Qty: 25 3RF Rx Instructions: until response; do not exceed 3 doses per episode may substitute quantity albuterol sulfate 90 mcg/actuation HFA aerosol inhaler 2 puff inhalation Q6H PRN (Reason: shortness of breath or wheezing) Qty: 8.5 3RF (DME) oxygen concentrator See Rx Instructions .Route .MEDSUPPLY Qty: 1 0RF Rx Instructions: As directed oxygen 2 liters into bipap nightly atorvastatin 40 mg tablet 40 mg PO DAILY Qty: 90 3RF potassium chloride 20 mEq tablet,ER particles/crystals 20 meq PO DAILY Qty: 90 3RF amiodarone 200 mg tablet 200 mg PO DAILY Qty: 90 3RF amlodipine 5 mg tablet 5 mg PO DAILY Qty: 90 1RF clopidogrel 75 mg tablet See Rx Instructions .ROUTE .COMPLEX Qty: 90 3RF Dose Instruction: TAKE ONE TABLET BY MOUTH DAILY Rx Instructions: TAKE ONE TABLET BY MOUTH DAILY doxazosin 1 mg tablet See Rx Instructions .ROUTE .COMPLEX Qty: 180 1RF Dose Instruction: TAKE TWO TABLETS BY MOUTH DAILY Rx Instructions: TAKE TWO TABLETS BY MOUTH DAILY Held Entresto 49-51 mg tablet 1 tab PO BID Qty: 60 6RF Hold Instructions: Resume on 08/17/22. hold until your cardiology follow up due to creatinine increase Rx Instructions: Hold Lisinopril 2 days prior to beginning Entresto metoprolol tartrate 25 mg tablet 25 mg PO BID Qty: 180 3RF Hold Instructions: Resume on 08/11/22. hold until follow up with cardiology. This has been held due to HR 50s Discharge Orders: Discharge Order (Routine); Ordered 08/03/22 Ordered By: Alyson Nelson Other Ambulatory Orders: Physical Therapy Eval and Treat Outpatient (Order) Timeframe: 3 Days Facility: [facility] - Location: Physical Therapy Ordered By: Alyson Nelson Referrals: Jayleen Flores FNP-C [Primary Care Provider] - Trinidad Ward FNP [Nurse Practitioner] - 1 week Discharge Diet: Usual diet Discharge Activity: Resume usual activity Patient Instructions: Opioid Safety Activity Restrictions/Additional Instructions: Processed foods have the most sodium. These foods usually come in cans, boxes, jars, and bags. They tend to have a lot of sodium even if they don't taste salty. In fact, many sweet foods have a lot of sodium in them. The only way to know for sure how much sodium you are eating is to check the label. Here are some examples of foods that often have too much sodium: ?Canned soups ?Rice and noodle mixes ?Sauces, dressings, and condiments (such as ketchup and mustard) ?Pre-made frozen meals (also called TV dinners ) ?Deli meats, hot dogs, and cheeses ?Smoked, cured, or pickled foods ?Salted snack foods and nuts ?Restaurant meals Here are some tips to help you eat less sodium: ?Avoid processed foods when possible. This is the most important thing you can do to eat less sodium. Processed foods include most foods that are sold in cans, boxes, jars, and bags. ?Instead of buying pre-made, processed foods, buy fresh or fresh-frozen fruits and vegetables. ( Fresh-frozen means the food is frozen without anything added to it.) ?Buy meats, fish, chicken, and turkey that are fresh instead of canned or sold at the deli counter. (Meats sold at the deli counter are high in sodium.) ?Try to eat at restaurants less often ?When possible, try to make meals from scratch at home using fresh ingredients ?If you do need to buy canned or packaged foods, choose ones that are labeled sodium-free or very low sodium One of best ways to limit your sodium is to only eat out at restaurants every once in a while. When you do eat out, try to choose places that offer healthier choices and fresh ingredients. No matter where you eat, when choosing what to order: ?Ask your nuclear reactor technician if your meal can be made without salt ?Avoid foods that come with sauces or dips ?Choose plain grilled meats or fish and steamed vegetables ?Ask for oil and vinegar for your salad, rather than dressing ?If a meal you really want has more sodium than you should have, consider saving half of it to eat another day Discharge Attestations Time Spent in Discharge Care*: greater than 30 min Quality Metrics Clinical Quality Measures [ No reported AMI, CVA or VTE this stay] Coding Level of Care Code Acute Code for Chg Fwd Diagnoses Leg edema R60.0 Acute exacerbation of CHF (congestive heart failure) I50.9 CKD (chronic kidney disease) N18.9 Chronic kidney disease stage: unspecified stage Benign hypertension I10 Controlled diabetes mellitus without complication, without long-term current use of insulin E11.9 Diabetes mellitus type: type 2 Adult hypothyroidism E03.9 CAD (coronary artery disease) I25.10 Associated angina: without angina Coronary Disease-Associated Artery/Lesion type: [place] artery [place] vs. transplanted heart: [place] heart DVT (deep venous thrombosis) I82.409 SHIRA treated with BiPAP G47.33
--- NOTE | 2022-08-03 14:24 | PC.NURSE ---
Discussed discharge, new medications, follow up appointments and hospital calling to set up appointment for the park building to place lymphadema wraps. Patient verbalized understanding.
--- NOTE | 2022-08-03 16:01 | PC.SOCIAL ---
IMM updated IMM dated and initialed, copy given to patient and one placed in chart.
== END 2022-08-03 14:08 | disposition home or self-care (01) | DRG 291 ==
LOC: ER 18:01 → MEDSURG 19:35
PROVIDERS: Admitting Provider Internal Medicine; Emergency Provider Emergency Medicine; PCP Nurse Practitioner; Visit Provider Student in an Organized Health Care Education/Training Program
DX: I13.0 Hypertensive heart and chronic kidney disease with heart failure and stage 1 through stage 4 chronic kidney disease, or unspecified chronic kidney disease (principal); I50.33 Acute on chronic diastolic (congestive) heart failure; N18.30 Chronic kidney disease, stage 3 unspecified; E11.22 Type 2 diabetes mellitus with diabetic chronic kidney disease; Z86.718 Personal history of other venous thrombosis and embolism; E78.5 Hyperlipidemia, unspecified; E03.9 Hypothyroidism, unspecified; Z82.49 Family history of ischemic heart disease and other diseases of the circulatory system; G47.33 Obstructive sleep apnea (adult) (pediatric); Z99.89 Dependence on other enabling machines and devices; Z91.119 Patient's noncompliance with dietary regimen due to unspecified reason; T50.1X6A Underdosing of loop [high-ceiling] diuretics, initial encounter; Z91.128 Patient's intentional underdosing of medication regimen for other reason; Z79.82 Long term (current) use of aspirin; Z79.85 Long-term (current) use of injectable non-insulin antidiabetic drugs; Z79.02 Long term (current) use of antithrombotics/antiplatelets; I87.8 Other specified disorders of veins; I25.10 Atherosclerotic heart disease of native coronary artery without angina pectoris
CPT/HCPCS: 36415; 36416; 71045; 80048; 80053; 82962; 83735; 83880; 84484; 85025; 93005; 93970; 96372; 97161; 97530; 99285; J1815; J3490

== ENCOUNTER 2022-08-05 12:04 | Outpatient (RCR) | payer MEDICARE, OTHER, SELFPAY | END 2022-08-28 23:59 | disposition home or self-care (01) | LOC: SPT 12:04 | PROVIDERS: PCP Nurse Practitioner; Visit Provider Student in an Organized Health Care Education/Training Program | DX: R60.0 Localized edema (principal); I50.9 Heart failure, unspecified | CPT/HCPCS: 29581; 97140; 97161 ==

== ENCOUNTER → 2022-08-16 10:42 | Outpatient (BNVA) | payer MEDICARE, OTHER, SELFPAY | PROVIDERS: PCP Nurse Practitioner; Visit Provider Internal Medicine Cardiovascular Disease | DX: I13.0 Hypertensive heart and chronic kidney disease with heart failure and stage 1 through stage 4 chronic kidney disease, or unspecified chronic kidney disease (principal); E11.22 Type 2 diabetes mellitus with diabetic chronic kidney disease; N18.9 Chronic kidney disease, unspecified; I50.9 Heart failure, unspecified; Z79.85 Long-term (current) use of injectable non-insulin antidiabetic drugs; J45.909 Unspecified asthma, uncomplicated; E03.9 Hypothyroidism, unspecified; I49.3 Ventricular premature depolarization; I25.10 Atherosclerotic heart disease of native coronary artery without angina pectoris; G47.33 Obstructive sleep apnea (adult) (pediatric); E66.01 Morbid (severe) obesity due to excess calories; Z68.42 Body mass index [BMI] 45.0-49.9, adult; N40.0 Benign prostatic hyperplasia without lower urinary tract symptoms; Z79.82 Long term (current) use of aspirin; I82.402 Acute embolism and thrombosis of unspecified deep veins of left lower extremity | CPT/HCPCS: 99214 ==

== ENCOUNTER → 2022-08-25 10:35 | Outpatient (BNVA) | payer MEDICARE, OTHER, SELFPAY | PROVIDERS: PCP Nurse Practitioner; Visit Provider Internal Medicine Pulmonary Disease | DX: G47.33 Obstructive sleep apnea (adult) (pediatric) (principal); J45.909 Unspecified asthma, uncomplicated; I25.10 Atherosclerotic heart disease of native coronary artery without angina pectoris; I49.3 Ventricular premature depolarization; I50.9 Heart failure, unspecified; I82.402 Acute embolism and thrombosis of unspecified deep veins of left lower extremity | CPT/HCPCS: 99214 ==

== ENCOUNTER → 2022-10-18 16:41 | Outpatient (BNVA) | payer MEDICARE, OTHER, SELFPAY | PROVIDERS: PCP Nurse Practitioner; Visit Provider Nurse Practitioner | DX: L98.9 Disorder of the skin and subcutaneous tissue, unspecified (principal) | CPT/HCPCS: 88304 ==

== ENCOUNTER → 2022-11-08 08:43 | Outpatient (BNVA) | payer MEDICARE, OTHER, SELFPAY | PROVIDERS: PCP Nurse Practitioner; Visit Provider Podiatrist Foot & Ankle Surgery | DX: I73.9 Peripheral vascular disease, unspecified (principal); L60.3 Nail dystrophy; M21.41 Flat foot [pes planus] (acquired), right foot; M21.42 Flat foot [pes planus] (acquired), left foot; I87.2 Venous insufficiency (chronic) (peripheral); I10 Essential (primary) hypertension; N18.9 Chronic kidney disease, unspecified | CPT/HCPCS: 11721; 99204 ==

== ENCOUNTER 2023-01-06 11:02 | Outpatient (CLI) | payer MEDICARE, OTHER, SELFPAY ==
[2023-01-06 12:08] LABS: Alanine Aminotransferase 11 U/L (0-41); Albumin Level 4.2 g/dL (3.5-5.2); Alkaline Phosphatase 124 U/L (40-130); Anion Gap 11.8 (5-19); Aspartate Amino Transferase 18 U/L (0-40); Blood Urea Nitrogen 26 mg/dL (8-23); Calcium 8.8 mg/dL (8.5-10.5); Carbon Dioxide 29 mmol/L (22-29); Chloride 105 mmol/L (98-107); Globulin 2.7 g/dL (1.3-4.6); Glucose 114 mg/dL (65-115); Magnesium 2.1 mg/dL (1.7-2.3); NT Pro B Type Natriuretic Pept 60 pg/mL (0-450); Osmolality Calculated 298 mOsm/kg (285-295); Potassium 4.8 mmol/L (3.5-5.1); Sodium 141 mmol/L (136-145); Total Bilirubin 0.5 mg/dL (0.15-1.2); Total Protein 6.9 g/dL (6.6-8.7)
== END 2023-01-06 11:03 | disposition home or self-care (01) ==
LOC: LAB 11:05
PROVIDERS: PCP Nurse Practitioner; Visit Provider Internal Medicine Cardiovascular Disease
DX: I87.2 Venous insufficiency (chronic) (peripheral) (principal); I25.10 Atherosclerotic heart disease of native coronary artery without angina pectoris; I50.9 Heart failure, unspecified
CPT/HCPCS: 80053; 83735; 83880

== ENCOUNTER → 2023-01-23 16:00 | Outpatient (BNVA) | payer MEDICARE, OTHER, SELFPAY | PROVIDERS: PCP Nurse Practitioner; Visit Provider Nurse Practitioner | DX: E03.9 Hypothyroidism, unspecified (principal); R53.83 Other fatigue; E55.9 Vitamin D deficiency, unspecified | CPT/HCPCS: 82306; 82607; 84439; 84443; 84481; 85025 ==

== ENCOUNTER → 2023-02-07 11:20 | Outpatient (BNVA) | payer MEDICARE, OTHER, SELFPAY | PROVIDERS: PCP Nurse Practitioner; Visit Provider Internal Medicine Cardiovascular Disease | DX: I13.0 Hypertensive heart and chronic kidney disease with heart failure and stage 1 through stage 4 chronic kidney disease, or unspecified chronic kidney disease (principal); E11.22 Type 2 diabetes mellitus with diabetic chronic kidney disease; N18.9 Chronic kidney disease, unspecified; I50.30 Unspecified diastolic (congestive) heart failure; Z79.84 Long term (current) use of oral hypoglycemic drugs; I25.10 Atherosclerotic heart disease of native coronary artery without angina pectoris; I49.3 Ventricular premature depolarization; I82.402 Acute embolism and thrombosis of unspecified deep veins of left lower extremity | CPT/HCPCS: 99214 ==

== ENCOUNTER → 2023-02-28 07:52 | Outpatient (BNVA) | payer MEDICARE, OTHER, SELFPAY | PROVIDERS: PCP Nurse Practitioner; Visit Provider Podiatrist Foot & Ankle Surgery | DX: L60.8 Other nail disorders (principal); I73.9 Peripheral vascular disease, unspecified; L60.3 Nail dystrophy; M21.41 Flat foot [pes planus] (acquired), right foot; M21.42 Flat foot [pes planus] (acquired), left foot; I87.2 Venous insufficiency (chronic) (peripheral); I10 Essential (primary) hypertension; N18.9 Chronic kidney disease, unspecified; L84 Corns and callosities | CPT/HCPCS: 11055; 11721 ==

== ENCOUNTER → 2023-04-17 10:40 | Outpatient (BNVA) | payer MEDICARE, OTHER, SELFPAY | PROVIDERS: PCP Nurse Practitioner; Visit Provider Internal Medicine Cardiovascular Disease | DX: I13.0 Hypertensive heart and chronic kidney disease with heart failure and stage 1 through stage 4 chronic kidney disease, or unspecified chronic kidney disease (principal); N18.9 Chronic kidney disease, unspecified; I50.9 Heart failure, unspecified; I25.10 Atherosclerotic heart disease of native coronary artery without angina pectoris; I49.3 Ventricular premature depolarization; I82.4Y2 Acute embolism and thrombosis of unspecified deep veins of left proximal lower extremity | CPT/HCPCS: 99214 ==

== ENCOUNTER → 2023-04-26 08:17 | Outpatient (BNVA) | payer MEDICARE, OTHER, SELFPAY | PROVIDERS: PCP Nurse Practitioner; Visit Provider Internal Medicine Pulmonary Disease | DX: R06.00 Dyspnea, unspecified; G47.33 Obstructive sleep apnea (adult) (pediatric); I25.10 Atherosclerotic heart disease of native coronary artery without angina pectoris; I49.3 Ventricular premature depolarization; I50.9 Heart failure, unspecified; J45.20 Mild intermittent asthma, uncomplicated | CPT/HCPCS: 99214 ==

== ENCOUNTER → 2023-05-17 14:55 | Outpatient (BNVA) | payer MEDICARE, OTHER, SELFPAY | PROVIDERS: PCP Nurse Practitioner; Visit Provider Podiatrist Foot & Ankle Surgery | DX: I87.2 Venous insufficiency (chronic) (peripheral) (principal); N18.9 Chronic kidney disease, unspecified; L84 Corns and callosities; I73.9 Peripheral vascular disease, unspecified; L60.3 Nail dystrophy; M21.41 Flat foot [pes planus] (acquired), right foot; M21.42 Flat foot [pes planus] (acquired), left foot | CPT/HCPCS: 11055; 11721; 99213 ==

== ENCOUNTER → 2023-06-22 14:19 | Outpatient (BNVA) | payer MEDICARE, OTHER, SELFPAY | PROVIDERS: PCP Nurse Practitioner; Visit Provider Nurse Practitioner | DX: E11.9 Type 2 diabetes mellitus without complications (principal); E03.9 Hypothyroidism, unspecified | CPT/HCPCS: 80053; 83036; 84443; 85025 ==

== ENCOUNTER 2023-06-25 06:27 | Emergency (ER) | payer MEDICARE, OTHER, SELFPAY ==
[2023-06-25 06:30] VITALS: BP 134/67; PULSE 66; RESP 20; TEMP 36.5; O2SAT 93; BMI 45.0
[2023-06-25 06:35] VITALS: BP 134/67; PULSE 67; O2SAT 90
--- NOTE | 2023-06-25 06:39 | XRR_ITS ---
PROCEDURE INFORMATION: Exam: XR Right Wrist Exam date and time: 06/25/2023 6:48 AM Age: 77 years old Clinical indication: Injury or trauma; Fall; Blunt trauma (contusions or hematomas); Wrist; Right TECHNIQUE: Imaging protocol: Radiologic exam of the right wrist. Views: 3 or more views. COMPARISON: CR XR hand RT min 3V* [id number] 07/01/2020 4:16 PM FINDINGS: Bones/joints: Normal. No fracture or dislocation. No acute osseous, joint, or soft tissue abnormality. Soft tissues: Normal. XR/XR wrist RT min 3V* [id number] IMPRESSION: No acute findings.
--- NOTE | 2023-06-25 06:39 | XRR_ITS ---
PROCEDURE INFORMATION: Exam: XR Right Shoulder Exam date and time: 06/25/2023 6:45 AM Age: 77 years old Clinical indication: Injury or trauma; Fall; Blunt trauma (contusions or hematomas); Shoulder; Right; Patient HX: Fell; Additional info: Pain TECHNIQUE: Imaging protocol: Radiologic exam of the right shoulder. Views: 2 or more views. COMPARISON: US soft tissue/extremity [id number] 12/10/2021 11:12 AM FINDINGS: Bones/joints: Moderate acromioclavicular and mild glenohumeral spurring. No fracture or dislocation. No acute osseous or joint abnormality. Soft tissues: Normal. XR/XR shoulder RT min 2V* [id number] IMPRESSION: No acute findings.
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
--- NOTE | 2023-06-25 07:08 | XRR_ITS ---
PROCEDURE INFORMATION: Exam: XR Right Hand Exam date and time: 06/25/2023 7:23 AM Age: 77 years old Clinical indication: Swelling; Hand; Right; Additional info: Pain/fall TECHNIQUE: Imaging protocol: Radiologic exam of the right hand. Views: 3 or more views. COMPARISON: CR XR hand RT min 3V* [id number] 07/01/2020 4:16 PM FINDINGS: Bones/joints: Normal. Mild interphalangeal articular surface narrowing and spurring. No fracture or dislocation. No acute osseous or joint abnormality. Soft tissues: Normal. XR/XR hand RT min 3V* [id number] IMPRESSION: No acute findings.
== END 2023-06-25 08:27 | disposition home or self-care (01) ==
PROVIDERS: Emergency Provider Family Medicine; PCP Nurse Practitioner
DX: S63.501A Unspecified sprain of right wrist, initial encounter (principal); Z79.02 Long term (current) use of antithrombotics/antiplatelets; Z79.82 Long term (current) use of aspirin; Z79.85 Long-term (current) use of injectable non-insulin antidiabetic drugs; E11.22 Type 2 diabetes mellitus with diabetic chronic kidney disease; I12.9 Hypertensive chronic kidney disease with stage 1 through stage 4 chronic kidney disease, or unspecified chronic kidney disease; N18.9 Chronic kidney disease, unspecified; I25.10 Atherosclerotic heart disease of native coronary artery without angina pectoris; W01.0XXA Fall on same level from slipping, tripping and stumbling without subsequent striking against object, initial encounter
CPT/HCPCS: 73030; 73110; 73130; 99283

== ENCOUNTER → 2023-09-05 12:31 | Outpatient (BNVA) | payer MEDICARE, OTHER, SELFPAY | PROVIDERS: PCP Nurse Practitioner; Visit Provider Internal Medicine Cardiovascular Disease | DX: R07.9 Chest pain, unspecified (principal); R06.02 Shortness of breath; I50.9 Heart failure, unspecified; I10 Essential (primary) hypertension; I49.3 Ventricular premature depolarization; I25.10 Atherosclerotic heart disease of native coronary artery without angina pectoris; Z79.899 Other long term (current) drug therapy; I11.0 Hypertensive heart disease with heart failure; I44.0 Atrioventricular block, first degree; R94.31 Abnormal electrocardiogram [ECG] [EKG] | CPT/HCPCS: 36415; 80048; 83880; 93005; 99215 ==

== ENCOUNTER → 2023-11-22 09:36 | Outpatient (BNVA) | payer MEDICARE, OTHER, SELFPAY | PROVIDERS: PCP Nurse Practitioner; Visit Provider Podiatrist Foot & Ankle Surgery | DX: I87.2 Venous insufficiency (chronic) (peripheral) (principal); N18.9 Chronic kidney disease, unspecified; L84 Corns and callosities; I73.9 Peripheral vascular disease, unspecified; L60.3 Nail dystrophy; M21.41 Flat foot [pes planus] (acquired), right foot; M21.42 Flat foot [pes planus] (acquired), left foot | CPT/HCPCS: 11055; 11721 ==

== ENCOUNTER 2023-12-29 10:24 | Outpatient (CLI) | payer MEDICARE, OTHER, SELFPAY ==
[2023-12-29 10:57] LABS: Basophils % 0.5 %; Eosinophils # 0.2 10^3/uL (0.0-0.8); Hematocrit 41.7 % (37-53); Lymphocytes # 1.1 10^3/uL (0.8-4.8); Lymphocytes % 18.5 %; Mean Corpuscular HGB Conc 31.2 g/dL (30-55); Mean Corpuscular Hemoglobin 31.1 pg (27-33); Mean Corpuscular Volume 99.8 fl (82-101); Mean Platelet Volume 10.5 fL (7.4-10.4); Monocytes # 0.6 10^3/uL (0.2-0.9); Monocytes % 9.7 %; Neutrophils # 4.02 10^3/uL (1.8-7.7); Nucleated Red Blood Cells % 0.3 %; Platelet Count 173 10^3/cmm (157-399); Red Blood Count 4.18 10^6/uL (3.85-5.65); Red Cell Distribution Width 16.1 % (12.1-15.1)
[2023-12-29 11:13] LABS: Estmated Average Glucose 140; Hemoglobin A1C 6.5 % (4.0-6.0)
[2023-12-29 11:33] LABS: 25 Hydroxy Vitamin D 29 ng/mL (30-100); Alanine Aminotransferase 13 U/L (0-41); Albumin Level 4.1 g/dL (3.5-5.2); Alkaline Phosphatase 126 U/L (40-130); Blood Urea Nitrogen 30 mg/dL (8-23); Calcium 8.5 mg/dL (8.5-10.5); Carbon Dioxide 25 mmol/L (22-29); Chloride 104 mmol/L (98-107); Chol HDL Ratio 3.74 mg/dL (1.0-5.00); Cholesterol 131 mg/dL (0-200); Globulin 2.9 g/dL (1.3-4.6); Glucose 87 mg/dL (65-115); HDL Cholesterol 35 mg/dL (60-100); LDL Cholesterol Calculated 77 mg/dL (50-129); Osmolality Calculated 296 mOsm/kg (285-295); Sodium 140 mmol/L (136-145); Thyroid Stimulating Hormone 4.23 uIU/mL (0.27-4.20); Total Bilirubin 0.7 mg/dL (0.15-1.2); Triglycerides 93 mg/dL (0-150); Vitamin B12 1031 pg/mL (232-1245)
[2023-12-29 11:38] LABS: Anion Gap 15.9 (5-19); Aspartate Amino Transferase 20 U/L (0-40); Potassium 4.9 mmol/L (3.5-5.1)
== END 2023-12-29 10:25 | disposition home or self-care (01) ==
LOC: LAB 10:31
PROVIDERS: PCP Nurse Practitioner; Visit Provider Nurse Practitioner
DX: E11.9 Type 2 diabetes mellitus without complications (principal); E55.9 Vitamin D deficiency, unspecified
CPT/HCPCS: 36415; 80053; 80061; 82306; 82607; 83036; 84443; 85025

== ENCOUNTER → 2024-01-03 10:48 | Outpatient (BNVA) | payer MEDICARE, OTHER, SELFPAY | PROVIDERS: PCP Nurse Practitioner; Visit Provider Nurse Practitioner | DX: E03.9 Hypothyroidism, unspecified (principal) | CPT/HCPCS: 84439; 84481 ==

== ENCOUNTER → 2024-01-18 08:59 | Outpatient (BNVA) | payer MEDICARE, OTHER, SELFPAY | PROVIDERS: PCP Nurse Practitioner; Visit Provider Internal Medicine Critical Care Medicine | DX: R06.00 Dyspnea, unspecified (principal); I50.9 Heart failure, unspecified; G47.33 Obstructive sleep apnea (adult) (pediatric); J45.20 Mild intermittent asthma, uncomplicated; E66.01 Morbid (severe) obesity due to excess calories; Z68.41 Body mass index [BMI] 40.0-44.9, adult; R53.81 Other malaise; Z71.3 Dietary counseling and surveillance; Z71.89 Other specified counseling; Z71.82 Exercise counseling; Z99.89 Dependence on other enabling machines and devices | CPT/HCPCS: 99213 ==

== ENCOUNTER → 2024-02-13 10:00 | Outpatient (BNVA) | payer MEDICARE, OTHER, SELFPAY | PROVIDERS: PCP Nurse Practitioner; Visit Provider Podiatrist Foot & Ankle Surgery | DX: I87.2 Venous insufficiency (chronic) (peripheral) (principal); N18.9 Chronic kidney disease, unspecified; I73.9 Peripheral vascular disease, unspecified; L60.3 Nail dystrophy; M21.41 Flat foot [pes planus] (acquired), right foot; M21.42 Flat foot [pes planus] (acquired), left foot | CPT/HCPCS: 99213 ==

== ENCOUNTER → 2024-03-07 09:05 | Outpatient (BNVA) | payer MEDICARE, OTHER, SELFPAY | PROVIDERS: PCP Nurse Practitioner; Visit Provider Student in an Organized Health Care Education/Training Program | DX: Z12.11 Encounter for screening for malignant neoplasm of colon (principal) | CPT/HCPCS: 99024; 99204 ==

== ENCOUNTER 2024-03-07 09:42 | Outpatient (CLI) | payer MEDICARE, OTHER, SELFPAY ==
[2024-03-07 10:30] LABS: Estmated Average Glucose 123; Hemoglobin A1C 5.9 % (4.0-6.0)
[2024-03-07 10:46] LABS: Alanine Aminotransferase 13 U/L (0-41); Albumin Level 3.9 g/dL (3.5-5.2); Alkaline Phosphatase 117 U/L (40-130); Anion Gap 14.3 (5-19); Aspartate Amino Transferase 19 U/L (0-40); Blood Urea Nitrogen 18 mg/dL (8-23); Calcium 8.1 mg/dL (8.5-10.5); Carbon Dioxide 25 mmol/L (22-29); Chloride 104 mmol/L (98-107); Free T4 Free Thyroxine 1.46 ng/dL (0.82-1.77); Globulin 2.6 g/dL (1.3-4.6); Glucose 92 mg/dL (65-115); Osmolality Calculated 290 mOsm/kg (285-295); Potassium 4.3 mmol/L (3.5-5.1); Sodium 139 mmol/L (136-145); T3 Free 2.1 PG/ML (2.0-4.4); Thyroid Stimulating Hormone 0.84 uIU/mL (0.27-4.20); Total Bilirubin 0.6 mg/dL (0.15-1.2); Total Protein 6.5 g/dL (6.6-8.7)
== END 2024-03-07 09:43 | disposition home or self-care (01) ==
LOC: LAB 09:44
PROVIDERS: PCP Nurse Practitioner; Visit Provider Nurse Practitioner
DX: E11.9 Type 2 diabetes mellitus without complications (principal); E03.9 Hypothyroidism, unspecified
CPT/HCPCS: 36415; 80053; 83036; 84439; 84443; 84481

== ENCOUNTER → 2024-03-13 09:50 | Outpatient (BNVA) | payer MEDICARE, OTHER, SELFPAY | PROVIDERS: PCP Nurse Practitioner; Visit Provider Internal Medicine Cardiovascular Disease | DX: I11.0 Hypertensive heart disease with heart failure (principal); I50.32 Chronic diastolic (congestive) heart failure; Z51.81 Encounter for therapeutic drug level monitoring; Z79.899 Other long term (current) drug therapy; I49.3 Ventricular premature depolarization; I87.2 Venous insufficiency (chronic) (peripheral); G47.33 Obstructive sleep apnea (adult) (pediatric); Z87.891 Personal history of nicotine dependence | CPT/HCPCS: 99214 ==

== ENCOUNTER → 2024-04-29 11:23 | Outpatient (BNVA) | payer MEDICARE, OTHER, SELFPAY | PROVIDERS: PCP Nurse Practitioner; Visit Provider Podiatrist Foot & Ankle Surgery | DX: E11.8 Type 2 diabetes mellitus with unspecified complications (principal); I87.2 Venous insufficiency (chronic) (peripheral); N18.9 Chronic kidney disease, unspecified; I73.9 Peripheral vascular disease, unspecified; L60.3 Nail dystrophy; L84 Corns and callosities | CPT/HCPCS: 11055; 11721 ==

== ENCOUNTER → 2024-07-04 11:45 | Outpatient (BNVA) | payer MEDICARE, OTHER, SELFPAY | PROVIDERS: PCP Nurse Practitioner; Visit Provider Emergency Medicine | DX: R39.9 Unspecified symptoms and signs involving the genitourinary system (principal) | CPT/HCPCS: 81000; 87086 ==

== ENCOUNTER 2024-07-25 09:06 | Outpatient (CLI) | payer MEDICARE, OTHER, SELFPAY ==
[2024-07-25 10:04] LABS: Basophils % 0.5 %; Eosinophils # 0.2 10^3/uL (0.0-0.8); Eosinophils % 5.1 %; Hematocrit 41.2 % (37-53); Lymphocytes % 27.6 %; Mean Corpuscular HGB Conc 30.8 g/dL (30-55); Mean Corpuscular Hemoglobin 30.8 pg (27-33); Mean Platelet Volume 10.9 fL (7.4-10.4); Monocytes # 0.4 10^3/uL (0.2-0.9); Monocytes % 10.5 %; Neutrophils # 2.06 10^3/uL (1.8-7.7); Neutrophils % 55.8 %; Nucleated Red Blood Cells % 0 %; Platelet Count 159 10^3/cmm (157-399); Red Blood Count 4.12 10^6/uL (3.85-5.65); Red Cell Distribution Width 16.6 % (12.1-15.1)
[2024-07-25 10:27] LABS: Estmated Average Glucose 123; Hemoglobin A1C 5.9 % (4.0-6.0)
[2024-07-25 11:02] LABS: Alanine Aminotransferase 14 U/L (0-41); Albumin Level 3.8 g/dL (3.5-5.2); Alkaline Phosphatase 111 U/L (40-130); Anion Gap 16.2 (5-19); Aspartate Amino Transferase 20 U/L (0-40); Blood Urea Nitrogen 21 mg/dL (8-23); Calcium 8.4 mg/dL (8.5-10.5); Carbon Dioxide 21 mmol/L (22-29); Chloride 106 mmol/L (98-107); Chol HDL Ratio 3.87 mg/dL (1.0-5.00); Cholesterol 120 mg/dL (0-200); Free T4 Free Thyroxine 1.58 ng/dL (0.82-1.77); Globulin 2.7 g/dL (1.3-4.6); Glucose 121 mg/dL (65-115); HDL Cholesterol 31 mg/dL (60-100); LDL Cholesterol Calculated 70 mg/dL (50-129); Osmolality Calculated 292 mOsm/kg (285-295); Potassium 4.2 mmol/L (3.5-5.1); Sodium 139 mmol/L (136-145); T3 Free 2.6 PG/ML (2.0-4.4); Thyroid Stimulating Hormone 0.59 uIU/mL (0.27-4.20); Total Bilirubin 0.6 mg/dL (0.15-1.2); Total Protein 6.5 g/dL (6.6-8.7); Triglycerides 96 mg/dL (0-150); VLDL Cholestrol Calculation 19 mg/dL (0-30)
== END 2024-07-25 09:07 | disposition home or self-care (01) ==
LOC: LAB 09:08
PROVIDERS: PCP Nurse Practitioner; Visit Provider Nurse Practitioner
DX: E11.9 Type 2 diabetes mellitus without complications (principal); E03.9 Hypothyroidism, unspecified
CPT/HCPCS: 36415; 80053; 80061; 83036; 84439; 84443; 84481; 85025

== ENCOUNTER → 2024-07-30 10:47 | Outpatient (BNVA) | payer MEDICARE, OTHER, SELFPAY | PROVIDERS: PCP Nurse Practitioner; Visit Provider Podiatrist Foot & Ankle Surgery | DX: E11.8 Type 2 diabetes mellitus with unspecified complications (principal); L60.3 Nail dystrophy; I87.2 Venous insufficiency (chronic) (peripheral); N18.9 Chronic kidney disease, unspecified; I73.9 Peripheral vascular disease, unspecified; M21.41 Flat foot [pes planus] (acquired), right foot; M21.42 Flat foot [pes planus] (acquired), left foot | CPT/HCPCS: 11721 ==

== ENCOUNTER 2024-08-08 13:49 | Outpatient (CLI) | payer MEDICARE, OTHER, SELFPAY ==
--- NOTE | 2024-08-08 13:57 | XR_ITS ---
WS: [id number] Exam: XR thoracic spine 3V* [id number] Date/Time of Exam: 08/08/2024 2:01 PM Reason For Exam: M54.9 - Dorsalgia, unspecified Comparison 04/22/2021. No acute fracture. Extensive spondylosis. Normal paraspinal soft tissues. Degenerative disc changes at all levels. XR/XR thoracic spine 3V* [id number] IMPRESSION: 1. No fracture. 2. Spondylosis and moderate degenerative changes.
--- NOTE | 2024-08-08 13:57 | XR_ITS ---
WS: [id number] Exam: XR lumbar spine 2-3V* [id number] Date/Time of Exam: 08/08/2024 2:01 PM Reason For Exam: M54.9 - Dorsalgia, unspecified No acute fracture. There is spondylosis. Prominent posterior spurs at L3-4 and L4-5 could cause some spinal canal stenosis. Also posterior spur projects from the lower endplate of L2. Facet arthropathy at all levels but most pronounced at L4-5 and L5-S1. Degenerative disc changes at all levels but most pronounced at L3-4 and L4-5. XR/XR lumbar spine 2-3V* [id number] IMPRESSION: 1. No fracture or malalignment. 2. Moderate degenerative changes. 3. Prominent posterior osteophytes at the L3-4, L4-5 and L2-3 levels that might contribute to spinal canal stenosis.
== END 2024-08-08 13:50 | disposition home or self-care (01) ==
PROVIDERS: PCP Nurse Practitioner; Visit Provider Nurse Practitioner
DX: M47.894 Other spondylosis, thoracic region (principal); M51.34 Other intervertebral disc degeneration, thoracic region; M51.369 Other intervertebral disc degeneration, lumbar region without mention of lumbar back pain or lower extremity pain; M25.78 Osteophyte, vertebrae; M47.896 Other spondylosis, lumbar region; M77.8 Other enthesopathies, not elsewhere classified; M46.06 Spinal enthesopathy, lumbar region; M47.897 Other spondylosis, lumbosacral region
CPT/HCPCS: 72072; 72100

== ENCOUNTER → 2024-10-22 10:43 | Outpatient (BNVA) | payer MEDICARE, OTHER, SELFPAY | PROVIDERS: PCP Nurse Practitioner; Visit Provider Podiatrist Foot & Ankle Surgery | DX: I73.9 Peripheral vascular disease, unspecified (principal); L60.3 Nail dystrophy; L84 Corns and callosities; I87.2 Venous insufficiency (chronic) (peripheral); N18.9 Chronic kidney disease, unspecified; M21.41 Flat foot [pes planus] (acquired), right foot; M21.42 Flat foot [pes planus] (acquired), left foot | CPT/HCPCS: 11056; 11721 ==

== ENCOUNTER → 2024-12-31 11:23 | Outpatient (BNVA) | payer MEDICARE, OTHER, SELFPAY | PROVIDERS: PCP Nurse Practitioner; Visit Provider Podiatrist Foot & Ankle Surgery | DX: I73.9 Peripheral vascular disease, unspecified (principal); L60.3 Nail dystrophy; L84 Corns and callosities; I87.2 Venous insufficiency (chronic) (peripheral); N18.9 Chronic kidney disease, unspecified; M21.41 Flat foot [pes planus] (acquired), right foot; M21.42 Flat foot [pes planus] (acquired), left foot | CPT/HCPCS: 11056; 11721 ==

== ENCOUNTER → 2025-01-01 11:51 | Outpatient (BNVA) | payer MEDICARE, OTHER, SELFPAY | PROVIDERS: PCP Nurse Practitioner; Visit Provider Nurse Practitioner | DX: E11.9 Type 2 diabetes mellitus without complications (principal); E03.9 Hypothyroidism, unspecified; E55.9 Vitamin D deficiency, unspecified | CPT/HCPCS: 80053; 80061; 82306; 83036; 84439; 84443; 84481 ==

== ENCOUNTER → 2025-01-14 15:48 | Outpatient (BNVA) | payer MEDICARE, OTHER, SELFPAY | PROVIDERS: PCP Nurse Practitioner; Visit Provider Internal Medicine Cardiovascular Disease | DX: I11.0 Hypertensive heart disease with heart failure (principal); I50.30 Unspecified diastolic (congestive) heart failure; I49.3 Ventricular premature depolarization; I87.2 Venous insufficiency (chronic) (peripheral); G47.33 Obstructive sleep apnea (adult) (pediatric); Z99.89 Dependence on other enabling machines and devices; Z51.81 Encounter for therapeutic drug level monitoring; R06.02 Shortness of breath; D71 Functional disorders of polymorphonuclear neutrophils | CPT/HCPCS: 36415; 71046; 83880; 99214 ==

== ENCOUNTER → 2025-04-01 09:56 | Outpatient (BNVA) | payer MEDICARE, OTHER, SELFPAY | PROVIDERS: PCP Nurse Practitioner; Visit Provider Internal Medicine | DX: G47.33 Obstructive sleep apnea (adult) (pediatric) (principal); Z99.89 Dependence on other enabling machines and devices; J45.30 Mild persistent asthma, uncomplicated | CPT/HCPCS: 11056; 11721; 99214; Q3014 ==